=== PATIENT | female | born 1955 | race African-American/Black ===

== ENCOUNTER 2017-02-04 09:07 | Inpatient (IN) | payer BC ==
--- NOTE | 2017-02-04 09:46 | PDOC ---
History of Present Illness - General Chief Complaint: Shortness of Breath Stated Complaint: RESPIRATORY PROBLEM (PCP SENT) Time Seen by Provider: 02/04/17 09:32 - History of Present Illness Initial Comments: 02/04/17 09:55 The patient is a 61 year old female with a history of GERD, ulcer, hiatal hernia , CAD, HTN, COPD, Mitral Valve Prolapse who is sent in by her PCP for evaluation of worsening SOB and abdominal distension. The patient reports that over the past 1 month she has noted increasing abdominal distension. She reports that over the past 2 weeks she has noted worsening SOB and dyspnea on exertion prompting her to present to her PCP, Dr. Atwood who proceed to advise that she present to the ED for further evaluation. She denies any fevers , chills, chest pain, nausea, vomiting, abdominal pain, or changes with urination or bowel movements. She reports normal regular bowel movements, but notes she has been belching more frequently. She states she traveled to [place] , [facility], and the [facility] in June, but reports no symptoms up until 1 month ago. Past History - Past Medical History Allergies/Adverse Reactions: Allergies Allergy/AdvReac Type Severity Reaction Status Date / Time pistachio nut Allergy Verified 02/04/17 09:12 shrimp Allergy Verified 02/04/17 09:12 tree and shrub pollen Allergy Verified 02/04/17 09:12 tree pollen Allergy Uncoded 02/04/17 09:12 Home Medications: Ambulatory Orders Atorvastatin Ca [Lipitor] 20 mg PO HS 02/04/17 Cyanocobalamin (Vitamin B-12) [B-12] 500 mcg PO WEEKLY 02/04/17 Desloratadine/Pseudoephedrine [Clarinex-D 12 Hour Tablet] 1 each PO DAILY Diltiazem Cd [Cardizem Cd -] 120 mg PO DAILY 02/04/17 Folic Acid 1 mg PO DAILY 02/04/17 Mesalamine 1.2 gm PO ASDIR 02/04/17 Montelukast Na [Singulair -] 10 mg PO HS 02/04/17 Paroxetine HCl [Paxil] 20 mg PO DAILY 02/04/17 Spironolactone [Aldactone] 25 mg PO DAILY 02/04/17 Thyroid [[place] Thyroid] 60 mg PO DAILY 02/04/17 Valsartan/Hydrochlorothiazide [Valsartan-Hctz 160-12.5 mg Tab] 1 each PO DAILY 02/04/17 Cardiac Disorders: Yes (CAD) COPD: No GI Disorders: Yes (GERD, ulcer, hiatal hernia) HTN: Yes Hypercholesterolemia: Yes Thyroid Disease: Yes - Surgical History Appendectomy: Yes - Suicide/Smoking/Psychosocial Hx Smoking Status: Yes Smoking History: Current every day smoker Have you smoked in the past 12 months: Yes Number of Cigarettes Smoked Daily: 5 Information on smoking cessation initiated: Yes 'Breaking Loose' booklet given: 04/07/15 Hx Alcohol Use: No Drug/Substance Use Hx: No Substance Use Type: None Review of Systems - Review of Systems Comments:: 02/04/17 10:03 Constitutional: No fevers, chills, fatigue, malaise HEENT: No Rhinorrhea, nasal congestion, Cardiovascular: No chest pain, syncope, palpitations, lightheadedness Respiratory: SOB. No Cough, Hemoptysis, Gastrointestinal: Abdominal distension. No Abdominal pain, Nausea, Vomiting, Constipation, Diarrhea, Melena Genitourinary: No Dysuria, Frequency, Urgency, Hesitancy, Hematuria, Flank pain Musculoskeletal: No Myalgia, arthralgia Skin: No rashes, bruising, pallor Neurologic: No Headache, Dizziness, Numbness, Weakness, or Tingling Psychiatric: No Hallucinations. No SI or HI *Physical Exam - Vital Signs Last Vital Signs Temp Pulse Resp BP Pulse Ox 97.7 F 89 19 110/56 97 02/04/17 09:09 02/04/17 09:09 02/04/17 09:09 02/04/17 09:09 02/04/17 09:37 - Physical Exam Comments: 02/04/17 10:04 General Appearance: Nourished. No Apparent Distress HEENT: EOMI, LUX. No Pharyngeal Erythema, Tonsillar Exudate, Tonsillar Erythema Neck: No Cervical Lymphadenopathy Respiratory/Chest: Lungs Clear, Normal Breath Sounds. Rhonchi noted on exam. No Crackles, Rales, Cardiovascular: Regular Rhythm, Regular Rate. No Murmur, Gallops, Rubs Gastrointestinal/Abdominal: Normal Bowel Sounds, Distended with notable fluid wave. No Guarding, Rebound, Tenderness Musculoskeletal: No CVA Tenderness Extremity: Normal Capillary Refill Integumentary: Normal Color, Dry, Warm Neurologic: floor covering installer II-XII NML intact, Fully Oriented, Alert, Normal Mood/Affect, Normal Response, Motor Strength 5/5. ED Treatment Course - LABORATORY CBC & Chemistry Diagram: 02/04/17 09:53 02/04/17 09:53 Medical Decision Making - Medical Decision Making 02/04/17 10:06 The patient is a 61 year old female with a history of HTN, HLD who is sent in by her PCP for evaluation of worsening SOB and abdominal distension. Differential includes but is not limited to: Hepatic Failure, CHF, Pleural Effusion, Acities, infectious, metabolic derangement. Given the patient's significant acute onset abdominal distension without pain, we are concerned for a hepatic etiology for her distension. It is possible that given her significant distension, it could be contributing to her respiratory symptoms, through a pleural effusion. We will obtain a cbc, cmp, troponin, lipase, vbg, coags to evaluate for other etiologies. We will also obtain a chest plain film as well. We will continue to monitor and reassess. 02/04/17 12:00 CBC, cmp, troponin, lipase, coags are unremarkable. chest plain film is unremarkable. Bedside US does not demonstrate any signs of acities, pleural effusion, or paricardial effusion. Given her significant symptoms with a negative work up thus far, we will obtain a ct chest, abdomen, and pelvis to evaluate for other pathology. 02/04/17 13:00 CT abdomen pelvis demonstrates concern for a malignant nodule in the left upper lobe of the lung as read by our radiologist. We discussed the case with Dr. Atwood who stated that he would come in to see the patient and would like us to admit to Dr. Suggs/Sami's group. 02/04/17 13:[address] Suggs who agrees with admission and requests Dr. Lanza evaluate the patient. 02/04/17 14:40 Discussed the case with Dr. Lanza who has been made aware of the case. *DC/Admit/Observation/Transfer Diagnosis at time of Disposition: Shortness of breath - Discharge Dispostion Condition at time of disposition: Guarded Admit: Yes - Referrals Referrals: Andare Atwood MD [Primary Care Provider] - - Patient Instructions - Post Discharge Activity
[2017-02-04 09:58] LABS: BASOPHIL 1.1 % (0-2.0); EOSINOPHIL 1.9 % (0-4.5); MCHC 33.4 g/dl (32.0-36.0); MEAN PLT VOLUME 7.2 fl (7.5-11.1); PLATELET COUNT 283 K/MM3 (134-434); RDW 13.4 % (11.6-15.6); WHITE BLOOD COUNT 10.2 K/mm3 (4.0-10.0)
[2017-02-04 10:00] LABS: VENOUS PH 7.4 (7.32-7.42)
[2017-02-04 10:14] LABS: INR 1.04 (0.82-1.09); PROTHROMBIN TIME (PATIENT) 11.8 SEC (9.98-11.88)
[2017-02-04 10:17] LABS: ACTIVATED PTT 32.5 SECONDS (26.9-34.4)
[2017-02-04 10:25] LABS: ALBUMIN 4.3 g/dl (3.4-5.0); ANION GAP 9 (8-16); CALCIUM 9.5 mg/dL (8.5-10.1); CO2 27 mmol/L (21-32); CREATININE 0.7 mg/dL (0.55-1.02); GLUCOSE,RANDOM 112 mg/dL (74-106); SGOT/AST 28 U/L (15-37); SGPT/ALT 53 U/L (12-78)
[2017-02-04 10:27] LABS: ALK PHOS 60 U/L (45-117); BILIRUBIN,TOTAL 0.8 mg/dL (0.2-1.0)
[2017-02-04 10:38] LABS: CPK 1019 IU/L (26-192); TROPONIN I < 0.02 ng/ml (0.00-0.05)
[2017-02-04] MEDS ORDERED: ALBUTEROL SO4 2.5/IPRATROPIUM 0.5 INH SOL 3 ML VIAL.NEB. NEB ONE ×2 (10:57→11:00)
--- NOTE | 2017-02-04 11:05 | PDOC ---
Attending Attestation - [facility] HPI: 02/04/17 11:23 Patient is a 61 year old female with a significant past medical history of GERD , ulcer, hiatal hernia, CAD, HTN, COPD, Mitral Valve Prolapse who presents to the ED with complaints of Abdominal distention that began one month ago. Patient reports experiencing abdominal distention that began 1 month ago that she states has gotten worse over the last two weeks. Patient reports seeing PCP who referred her to the ED for further evaluation concerning her abdomen. Patient reports experiencing episodes of SOB and dizziness for one month that she states has gotten worse for the past 2 weeks. She reports SOB is intensified with walking and laying down flat. Patient reports experiencing difficulty in swallowing for the past 2 weeks, but is not sure if it is related her other symptoms. Patient reports recent out of country travel to [place], [place], and [facility]. Patient received recent cardiac workup with Head Rigger, results being negative. Denies chest pain. Denies constipation, diarrhea. Denies dysuria, hematuria, change in urine color. Denies contact with sick individuals. Denies nausea, vomiting. Denies any other symptoms. Allergies: Pistachio, Shrimp, Tree pollen, shrub pollen Social history: Current smoker (20 Cigarettes per day). Social drinker. No illicit drugs. Surgical history: Appendectomy, hysterectomy PMD: Dr. Atwood Cardiology: Dr. Cunha Diamond Sizer And Grader: Dr. Oneal - Physicial Exam PE: 02/04/17 11:23 GENERAL: Awake, alert, and fully oriented, in no acute distress HEAD: No signs of trauma EYES: PERRLA, EOMI, sclera anicteric, conjunctiva clear ENT: +Pharynx clear. No ulvila edema. Auricles normal inspection, nares patent, Moist mucosa. +Diffuse Wheezing, worse on right. +Mild increase work of breathing. NECK: Normal ROM, supple, no lymphadenopathy, JVD, or masses LUNGS: +Audible breathing. +Mild stridor. Breath sounds equal, clear to auscultation bilaterally. No wheezes, and no crackles HEART: Regular rate and rhythm, normal S1 and S2, no murmurs, rubs or gallops ABDOMEN: Soft, nontender, normoactive bowel sounds. No guarding, no rebound. No masses EXTREMITIES: Normal range of motion, no edema. No clubbing or cyanosis. No cords, erythema, or tenderness NEUROLOGICAL: Normal speech SKIN: Warm, Dry, normal turgor, no rashes or lesions noted. - Medical Decision Making 02/04/17 11:23 Documentation prepared by Marcial Chowdhury, acting as medical case worker for Janelle Helm MD, /DO. <Marcial Chowdhury - Last Filed: 02/04/17 11:23> - Resident Resident Name: Macario Valerio - ED Attending Attestation I have performed the following: I have examined & evaluated the patient, The case was reviewed & discussed with the resident, I agree w/resident's findings & plan, Exceptions are as noted - Medical Decision Making 02/04/17 11:02 7-year-old female history of hypertension, CAD, long smoking history here with shortness of breath wheezing and progressive abdominal distention. Exam noted for diffuse wheezing Differential: CHF, ACS, ascites, other processes such as lung CA, pericardial effusion, pleural effusion, anemia. Renal failure. Plan: EKG, chest x-ray, DuoNeb times for wheezing, CBC, CMP, BNP, troponin bedside ultrasound of cardiac , lung, and abdomen to rule out ascites. Will discuss with patient's primary doctor roberto <Janelle Helm - Last Filed: 02/04/17 12:38> Heart Score/ECG Review #1 General ECG Interpretation: Sinus Rhythm, Normal Rate (87), Normal Intervals, No acute ischemic changes (TWI II, III, AVF) <Janelle Helm - Last Filed: 02/04/17 12:38>
[2017-02-04] MEDS ORDERED: methylPREDNISolone NA SUCC 125 MG/2 ML VIAL IVPUSH ONE (13:19)
[2017-02-04] MEDS ORDERED: methylPREDNISolone NA SUCC 125 MG/2 ML VIAL ONE (13:27)
--- NOTE | 2017-02-04 15:43 | PN ---
Progress Note (short form) - Note Progress Note: PULMONARY CONSULTATION DICTATED 02/04/17 IMP COPD EXACERBATION CONRAD MASS LIKELY MALIGNANT ABDOMINAL DISTENTION ASHD OSAS ON CPAP HTN GERD PLAN IV STEROIDS INHALED BRONCHODILATORS O2 CT GUIDED BX WHEN RESPIRATORY STATUS IMPROVED PETS SCAN OUTPATIENT GI W/U IVF CPAP 7cmH2O AT BEDTIME MONITOR ROM LOVELL DR Problem List - Problems (1) Shortness of breath Code(s): R06.02 - SHORTNESS OF BREATH (2) COPD (chronic obstructive pulmonary disease) Code(s): J44.9 - CHRONIC OBSTRUCTIVE PULMONARY DISEASE, UNSPECIFIED Qualifiers: Emphysema type: unspecified (3) COPD exacerbation Code(s): J44.1 - CHRONIC OBSTRUCTIVE PULMONARY DISEASE W (ACUTE) EXACERBATION (4) Mass of left lung Code(s): R91.8 - OTHER NONSPECIFIC ABNORMAL FINDING OF LUNG FIELD (5) Abdominal distension Code(s): R14.0 - ABDOMINAL DISTENSION (GASEOUS) (6) GERD (gastroesophageal reflux disease) Code(s): K21.9 - GASTRO-ESOPHAGEAL REFLUX DISEASE WITHOUT ESOPHAGITIS (7) Hypothyroid Code(s): E03.9 - HYPOTHYROIDISM, UNSPECIFIED (8) ASHD (arteriosclerotic heart disease) Code(s): I25.10 - ATHSCL HEART DISEASE OF [place] CORONARY ARTERY W/O ANG PCTRS
[2017-02-04] MEDS ORDERED: ACETAMINOPHEN 325 MG TABLET (FP) PO PRN (15:54)
[2017-02-04 16:54] LABS: URINE APPEARANCE CLEAR; URINE BILIRUBIN NEGATIVE (NEGATIVE); URINE BLOOD NEGATIVE (NEGATIVE); URINE COLOR LTYELLOW; URINE GLUCOSE (UA) NEGATIVE (NEGATIVE); URINE KETONE NEGATIVE (NEGATIVE); URINE NITRITE NEGATIVE (NEGATIVE); URINE PROTEIN NEGATIVE (NEGATIVE); URINE UROBILINOGEN NEGATIVE mg/dL (0.2-1.0)
[2017-02-04 17:36] VITALS: BMI 29.3
[2017-02-04] MEDS: MONTELUKAST NA 10 MG TABLET PO SCH ×2 (17:48→21:46)
[2017-02-04] MEDS: ATORVASTATIN CA 20 MG TABLET (FP) PO SCH ×2 (17:48→21:46)
[2017-02-04] MEDS: SPIRONOLACTONE 25 MG TABLET (FP) PO SCH ×2 (17:48→21:46)
[2017-02-04] MEDS: methylPREDNISolone NA SUCC 40 MG/1 ML VIAL IVPUSH SCH (17:48)
[2017-02-04] MEDS: TIOTROPIUM BROMIDE 18 MCG/INH (DEVICE W/ 5 CAPSULES) IH SCH (17:48)
[2017-02-04] MEDS ORDERED: PT OWN MED DRAWER 7, Y5N ONE (18:51)
--- NOTE | 2017-02-04 18:52 | CONS ---
DATE OF CONSULTATION: 02/04/2017 REFERRING PHYSICIAN: Dr. Atwood HISTORY: The patient is a 61-year-old black female with a past medical history of GERD, obstructive sleep apnea on CPAP to 7cmH20, peptic ulcer disease, hiatal hernia, ASHD, hypertension, COPD, mitral valve prolapse, longstanding history of tobacco use approximately 1-2 packs per day since teenage years still smoking approximately a pack per day admitted to [facility] with the complaint of increasing shortness of breath and abdominal distention. The patient states that the past month or so she has been developing increasing abdominal distention. She denies any nausea or vomiting. She denies any change in bowels. She apparently went for a GI evaluation, which did not reveal any abnormalities. For the past couple of weeks or so she started noticing increasing shortness of breath, cough, and chest congestion. Her cough is productive of clear sputum. She denies any fevers, chills, nausea, vomiting, or diaphoresis. She states that her shortness of breath is exacerbated with walking up inclines and when lying flat. She is also complaining of difficulty in swallowing for the past 2 weeks and change in voice. The patient denies any hemoptysis. The patient also is noted to have increasing wheezing. She is not on home O2. She has never been intubated. She has apparently recently travelled out of the country to [place], [place], and the [facility]. She recently underwent a cardiac workup, which was within normal limits. PAST MEDICAL HISTORY: Again, includes COPD, hypertension, ASHD, mitral valve prolapse, obstructive sleep apnea, GERD, peptic ulcer disease, and hiatal hernia. REVIEW OF SYSTEMS: Positive orthopnea. Positive dyspnea. Positive cough. Positive hoarseness. No chest pain, no palpitations, no fever, no chills, no hemoptysis , no weight loss, no night sweats. Positive abdominal bloating. Positive abdominal distention. No abdominal pain. No lower extremity edema. CURRENT MEDICATIONS: Prior to admission include Lipitor, vitamin B12, Clarinex- D, Cardizem, folic acid, Aldactone, Paxil, Singulair, Synthroid, and valsartan/hydrochlorothiazide. SOCIAL HISTORY: No occupational exposures. Longstanding history of tobacco use approximately 1-2 packs per day since age 17 and currently still smoking. PHYSICAL EXAMINATION: General: The patient is a well-developed, well-nourished female awake and alert. She is mildly dyspneic but in no acute distress. Vital Signs: She is currently afebrile. Blood pressure 106/62, respiratory rate 24, O2 saturation 95% on room air. HEENT: Normocephalic and atraumatic. Neck: Supple. Heart: Regular S1, S2. Chest: Bilateral expiratory and inspiratory wheezes and rhonchi. Abdomen: Mildly distended. Soft. Bowel sounds present. Extremities: No cyanosis or edema. LABORATORIES: WBC 10.2, hemoglobin 16.3, hematocrit 48.9 with a platelet count of 283,000. There are 64 polys, 27 lymphocytes, and 5 monocytes. INR 1.04. Venous blood gas: PH 7.4, PCO2 of 43, PO2 of 39, bicarbonate 26, BUN 12, creatinine 0.7, CK 1019, CK-MB 11.1, B12 is 1269. Chest CTA reveals evidence of a left COPD changes bilaterally. There is a 1.8-cm x 1.4-cm spiculated nodule in the left upper lobe. There is a 4-mm nodule at the apex. There is noted increased adenopathy in the aortopulmonary window of 3.5 cm x 2.1 cm with central areas of hypoattenuation , likely necrosis. There is a prominent posterior lymph node measured at 1.4. Abdominal CT revealed no evidence of intestinal obstruction or diverticulitis. There is mild distention of bladder. There is also a large left hilar nodes. IMPRESSION: 1. Dyspnea secondary to chronic obstructive pulmonary disease exacerbation. 2. Left upper lobe mass likely malignancy increased risk due to longstanding history of tobacco use and noted to have mediastinal adenopathy. 3. Abdominal distention. 4. Elevated CPK. 5. History of hypothyroidism. PLAN: IV steroids, inhaled bronchodilators, supplemental O2. Pfts as an outpatient. PET scan as an outpatient. CT-guided aspiration biopsy. Continue GI workup. Evaluate for abdominal distention, monitor cpk ZOE DENISE M.D. LAURYN/[id number] MTDD
[2017-02-04 20:18] LABS: CPK 757 IU/L (26-192); THYROID STIMULATING HORMONE 0.81 uIU/ml (0.358-3.74); TROPONIN I < 0.02 ng/ml (0.00-0.05)
[2017-02-04] MEDS ORDERED: ALBUTEROL SO4 0.083% IH SOL 2.5 MG/3 ML VIAL.NEB. NEB ONE (21:49)
[2017-02-04] MEDS: BUDESONIDE/FORMETEROL FUMARATE 160/4.5 mcg INHALER IH SCH (22:39)
[2017-02-04] MEDS: LEVOFLOXACIN 500 MG IVPB 500 MG/100 ML BAG IVPB SCH (22:39)
[2017-02-04] MEDS: ALBUTEROL SO4 0.5 % INH SOLN 2.5 MG/0.5 ML VIAL.NEB. NEB PRN (22:40)
[2017-02-04 22:41] LABS: URINE LEUK ESTERASE Negative (NEGATIVE)
--- NOTE | 2017-02-04 22:45 | CONSULT ---
Consult Consult Specialty:: endocrine Referred by:: dr.rabadi west Reason for Consultation:: hypothyroidism - History of Present Illness Chief Complaint: difficulty breathing History of Present Illness: 61y female,copd,hypothyroidism,htn,hyperlipidemia,has recently noted increased abdominal girth,dyspnea and stridor,was seen by gi and sonogram performed of abdomen reportedly negative for ascites,her symptoms have recently worsened and warranted admission for possible pulmonary pathology,now ct showing clinical evidence of possible mass , she has also had difficulty voiding and belching frequently - History Source History Provided By: Patient - Alcohol/Substance Use Hx Alcohol Use: No - Smoking History Smoking history: Current every day smoker Have you smoked in the past 12 months: Yes Aproximately how many cigarettes per day: 5 Home Medications - Allergies Allergies/Adverse Reactions: Allergies Allergy/AdvReac Type Severity Reaction Status Date / Time pistachio nut Allergy Verified 02/04/17 09:12 shrimp Allergy Verified 02/04/17 09:12 tree and shrub pollen Allergy Verified 02/04/17 09:12 tree pollen Allergy Uncoded 02/04/17 09:12 - Home Medications Home Medications: Ambulatory Orders Atorvastatin Ca [Lipitor] 20 mg PO HS 02/04/17 Cyanocobalamin (Vitamin B-12) [B-12] 500 mcg PO WEEKLY 02/04/17 Desloratadine/Pseudoephedrine [Clarinex-D 12 Hour Tablet] 1 each PO DAILY Diltiazem Cd [Cardizem Cd -] 120 mg PO DAILY 02/04/17 Folic Acid 1 mg PO DAILY 02/04/17 Mesalamine 1.2 gm PO ASDIR 02/04/17 Montelukast Na [Singulair -] 10 mg PO HS 02/04/17 Paroxetine HCl [Paxil] 20 mg PO DAILY 02/04/17 Spironolactone [Aldactone] 25 mg PO DAILY 02/04/17 Thyroid [[place] Thyroid] 60 mg PO DAILY 02/04/17 Valsartan/Hydrochlorothiazide [Valsartan-Hctz 160-12.5 mg Tab] 1 each PO DAILY 02/04/17 Review of Systems - Review of Systems Constitutional: reports: Lethargy, Weakness Eyes: reports: No Symptoms HENT: reports: No Symptoms Neck: reports: No Symptoms Cardiovascular: reports: No Symptoms Respiratory: reports: Exercise Intolerance Gastrointestinal: reports: No Symptoms Genitourinary: reports: Dysuria, Urgency Breasts: reports: No Symptoms Reported Musculoskeletal: reports: No Symptoms Integumentary: reports: No Symptoms Neurological: reports: Weakness Endocrine: reports: Unexplained Weight Gain Physical Exam Vital Signs: Vital Signs Temperature 97.4 F L 02/04/17 20:12 Pulse Rate 95 H 02/04/17 20:12 Respiratory Rate 24 02/04/17 20:12 Blood Pressure 108/89 02/04/17 20:12 O2 Sat by Pulse Oximetry (%) 94 L 02/04/17 17:08 Constitutional: Yes: Anxious Eyes: Yes: EOM Intact HENT: Yes: Normocephalic Neck: Yes: Trachea Midline Cardiovascular: Yes: Tachycardia Respiratory: Yes: Accessory Muscle Use, On Nasal O2, Rhonchi, SOB on Exertion, Tachypnea Gastrointestinal: Yes: Normal Bowel Sounds, Hypoactive Bowel Sounds ...Rectal Exam: Yes: Deferred Renal/: Yes: Yu Present Musculoskeletal: Yes: WNL Extremities: Yes: WNL Edema: No Integumentary: Yes: WNL Neurological: Yes: Alert, Oriented Labs: CBC, BMP 02/04/17 09:53 02/04/17 09:53 Problem List - Problems (1) Hypothyroidism Code(s): E03.9 - HYPOTHYROIDISM, UNSPECIFIED (2) ASHD (arteriosclerotic heart disease) Code(s): I25.10 - ATHSCL HEART DISEASE OF [place] CORONARY ARTERY W/O ANG PCTRS (3) Abdominal distension Code(s): R14.0 - ABDOMINAL DISTENSION (GASEOUS) (4) COPD (chronic obstructive pulmonary disease) Code(s): J44.9 - CHRONIC OBSTRUCTIVE PULMONARY DISEASE, UNSPECIFIED (5) GERD (gastroesophageal reflux disease) Code(s): K21.9 - GASTRO-ESOPHAGEAL REFLUX DISEASE WITHOUT ESOPHAGITIS (6) Hypothyroid Code(s): E03.9 - HYPOTHYROIDISM, UNSPECIFIED (7) Mass of left lung Code(s): R91.8 - OTHER NONSPECIFIC ABNORMAL FINDING OF LUNG FIELD Assessment/Plan Current Active Problems ASHD (arteriosclerotic heart disease) (Acute) Abdominal distension (Acute) COPD (chronic obstructive pulmonary disease) (Acute) COPD exacerbation (Acute) GERD (gastroesophageal reflux disease) (Acute) Hypothyroid (Acute) Mass of left lung (Acute) Shortness of breath (Acute) Abnormal Lab Results 02/04/17 02/04/17 02/04/17 09:53 09:53 09:53 WBC 10.2 H RBC 5.43 H Hgb 16.3 H D Hct 48.9 H MPV 7.2 L Mixed VBG HCO3 26.0 H Random Glucose Creatine Kinase 1019 H CK-MB (CK-2) 11.130 H 02/04/17 02/04/17 09:53 18:30 WBC RBC Hgb Hct MPV Mixed VBG HCO3 Random Glucose 112 H Creatine Kinase 757 H CK-MB (CK-2) Laboratory Results - last 24 hr 02/04/17 02/04/17 02/04/17 09:53 09:53 09:53 WBC 10.2 H RBC 5.43 H Hgb 16.3 H D Hct 48.9 H MCV 90.0 MCH 30.0 MCHC 33.4 RDW 13.4 Plt Count 283 MPV 7.2 L Neutrophils % 64.0 Lymphocytes % 27.1 Monocytes % 5.9 Eosinophils % 1.9 Basophils % 1.1 PT with INR INR PTT (Actin FS) VBG pH 7.40 POC VBG pCO2 43.3 POC VBG pO2 39.5 Mixed VBG HCO3 26.0 H Sodium Potassium Chloride Carbon Dioxide Anion Gap BUN Creatinine Creat Clearance w eGFR Random Glucose Calcium Total Bilirubin AST ALT Alkaline Phosphatase Creatine Kinase 1019 H Creatine Kinase Index 1.0 CK-MB (CK-2) 11.130 H Troponin I < 0.02 B-Natriuretic Peptide 7.98 Total Protein Albumin Lipase TSH Free T4 Urine Color Urine Appearance Urine pH Ur Specific [place] Urine Protein Urine Glucose (UA) Urine Ketones Urine Blood Urine Nitrite Urine Bilirubin Urine Urobilinogen Ur Leukocyte Esterase 02/04/17 02/04/17 02/04/17 09:53 09:53 16:30 WBC RBC Hgb Hct MCV MCH MCHC RDW Plt Count MPV Neutrophils % Lymphocytes % Monocytes % Eosinophils % Basophils % PT with INR 11.80 INR 1.04 PTT (Actin FS) 32.5 VBG pH POC VBG pCO2 POC VBG pO2 Mixed VBG HCO3 Sodium 138 Potassium 4.3 Chloride 102 Carbon Dioxide 27 Anion Gap 9 BUN 12 Creatinine 0.7 Creat Clearance w eGFR > 60 Random Glucose 112 H Calcium 9.5 Total Bilirubin 0.8 D AST 28 D ALT 53 D Alkaline Phosphatase 60 Creatine Kinase Creatine Kinase Index CK-MB (CK-2) Troponin I B-Natriuretic Peptide Total Protein 8.0 Albumin 4.3 Lipase 138 TSH Free T4 Urine Color Ltyellow Urine Appearance Clear Urine pH 5.0 Ur Specific [place] 1.024 Urine Protein Negative Urine Glucose (UA) Negative Urine Ketones Negative Urine Blood Negative Urine Nitrite Negative Urine Bilirubin Negative Urine Urobilinogen Negative Ur Leukocyte Esterase Negative 02/04/17 02/04/17 18:30 18:30 WBC RBC Hgb Hct MCV MCH MCHC RDW Plt Count MPV Neutrophils % Lymphocytes % Monocytes % Eosinophils % Basophils % PT with INR INR PTT (Actin FS) VBG pH POC VBG pCO2 POC VBG pO2 Mixed VBG HCO3 Sodium Potassium Chloride Carbon Dioxide Anion Gap BUN Creatinine Creat Clearance w eGFR Random Glucose Calcium Total Bilirubin AST ALT Alkaline Phosphatase Creatine Kinase 757 H Creatine Kinase Index CK-MB (CK-2) Troponin I < 0.02 B-Natriuretic Peptide Total Protein Albumin Lipase TSH 0.81 D Free T4 0.95 D Urine Color Urine Appearance Urine pH Ur Specific [place] Urine Protein Urine Glucose (UA) Urine Ketones Urine Blood Urine Nitrite Urine Bilirubin Urine Urobilinogen Ur Leukocyte Esterase plan oxygen 2 liter nc pulmonary consulty iv steroids armour thyroid 60mg daily ck tsh free t4 antibiotic
[2017-02-04] MEDS: morphine SULFATE 4 MG/ML VIAL IVPUSH PRN (23:10)
[2017-02-05 01:03] LABS: URINE APPEARANCE CLEAR; URINE BILIRUBIN NEGATIVE (NEGATIVE); URINE BLOOD NEGATIVE (NEGATIVE); URINE COLOR LTYELLOW; URINE GLUCOSE (UA) NEGATIVE (NEGATIVE); URINE KETONE NEGATIVE (NEGATIVE); URINE NITRITE NEGATIVE (NEGATIVE); URINE PROTEIN NEGATIVE (NEGATIVE); URINE UROBILINOGEN NEGATIVE mg/dL (0.2-1.0)
[2017-02-05] MEDS: morphine SULFATE 4 MG/ML VIAL IVPUSH PRN ×2 (03:54→09:07)
[2017-02-05] MEDS ORDERED: ALBUTEROL SO4 0.083% IH SOL 2.5 MG/3 ML VIAL.NEB. NEB ONE (04:01)
[2017-02-05] MEDS: ALBUTEROL SO4 0.5 % INH SOLN 2.5 MG/0.5 ML VIAL.NEB. NEB PRN ×2 (04:04→22:29)
[2017-02-05 06:26] LABS: MCH 30.4 pg (25.7-33.7); MCHC 33.3 g/dl (32.0-36.0); MEAN CELL VOLUME 91.3 fl (80-96); MEAN PLT VOLUME 7.9 fl (7.5-11.1); PLATELET COUNT 267 K/MM3 (134-434); RDW 13.2 % (11.6-15.6); WHITE BLOOD COUNT 13.8 K/mm3 (4.0-10.0)
[2017-02-05 07:08] LABS: CHOLESTEROL 169 mg/dL (50-200)
[2017-02-05 07:13] LABS: ALBUMIN 3.9 g/dl (3.4-5.0); ANION GAP 14 (8-16); CALCIUM 9.5 mg/dL (8.5-10.1); CO2 20 mmol/L (21-32); GLUCOSE,RANDOM 167 mg/dL (74-106)
[2017-02-05] MEDS: THYROID 60 MG TABLET PO SCH (07:16)
[2017-02-05 07:18] LABS: ALK PHOS 50 U/L (45-117); BILIRUBIN,TOTAL 0.6 mg/dL (0.2-1.0); CREATININE 0.8 mg/dL (0.55-1.02); SGOT/AST 23 U/L (15-37); SGPT/ALT 46 U/L (12-78); TOT PROT 7.3 g/dl (6.4-8.2)
[2017-02-05] MEDS ORDERED: VALSARTAN 160 MG TABLET (UD) PO SCH (10:00)
[2017-02-05] MEDS ORDERED: PT OWN MED DRAWER 7, Y5N ONE (10:13)
[2017-02-05] MEDS: SPIRONOLACTONE 25 MG TABLET (FP) PO SCH ×2 (10:54→21:38)
[2017-02-05] MEDS: FOLIC ACID 1 MG TABLET (FP) PO SCH (10:54)
[2017-02-05] MEDS: methylPREDNISolone NA SUCC 40 MG/1 ML VIAL IVPUSH SCH (10:54)
[2017-02-05] MEDS: LEVOFLOXACIN 500 MG IVPB 500 MG/100 ML BAG IVPB SCH (10:54)
[2017-02-05] MEDS: HYDROCHLOROTHIAZIDE 12.5 MG CAPSULE (FP) PO SCH (10:54)
[2017-02-05] MEDS: BUDESONIDE/FORMETEROL FUMARATE 160/4.5 mcg INHALER IH SCH ×2 (10:56→21:38)
--- NOTE | 2017-02-05 11:30 | PN ---
Progress Note (short form) - Note Progress Note: PULMONARY AWAKE/ALERT/HOARSENESS OF VOICE ANICTERIC SCATTERED B/L RHONCHI/CRACKLES S1S2 BS+ NO EDEMA/SILVA LABS/MEDS/NOTES/IMAGES NOTED IMP COPD EXACERBATION CONRAD MASS LIKELY MALIGNANT ABDOMINAL DISTENTION ASHD OSAS ON CPAP HTN GERD PLAN IV STEROIDS INHALED BRONCHODILATORS O2 CT GUIDED BX WHEN RESPIRATORY STATUS IMPROVED PET SCAN OUTPATIENT NEEDS UROLOGIC EVALUATION IVF NEEDED CPAP 7cmH2O as tolerated MONITOR LILIYA KAY MD
[2017-02-05] MEDS: TIOTROPIUM BROMIDE 18 MCG/INH (DEVICE W/ 5 CAPSULES) IH SCH (11:47)
[2017-02-05] MEDS: PARoxetine HCL 10 MG TABLET (FP) PO SCH (11:47)
--- NOTE | 2017-02-05 12:27 | HP ---
Admitting History and Physical - Primary Care Physician PCP: Lewis Gallardo - Admission Chief Complaint: LUNG MASS History of Present Illness: 61 Y/O FEMALE WITH LONG HISTORY OF TOBACCO SMOKING FOUND WITH LUNG NODULE. PATIENT IN BED WITH FAMILY AROUND HER. ON FOR RESP DISTRESS. History Source: Patient, Medical Record - Past Medical History Cardiovascular: Yes: HTN Endocrine: Yes: Hypothyroidism - Smoking History Smoking history: Current every day smoker Have you smoked in the past 12 months: Yes Aproximately how many cigarettes per day: 5 - Alcohol/Substance Use Hx Alcohol Use: No Home Medications - Allergies Allergies/Adverse Reactions: Allergies Allergy/AdvReac Type Severity Reaction Status Date / Time pistachio nut Allergy Verified 02/04/17 09:12 shrimp Allergy Verified 02/04/17 09:12 tree and shrub pollen Allergy Verified 02/04/17 09:12 tree pollen Allergy Uncoded 02/04/17 09:12 - Home Medications Home Medications: Ambulatory Orders Atorvastatin Ca [Lipitor] 20 mg PO HS 02/04/17 Cyanocobalamin (Vitamin B-12) [B-12] 500 mcg PO WEEKLY 02/04/17 Desloratadine/Pseudoephedrine [Clarinex-D 12 Hour Tablet] 1 each PO DAILY Diltiazem Cd [Cardizem Cd -] 120 mg PO DAILY 02/04/17 Folic Acid 1 mg PO DAILY 02/04/17 Mesalamine 1.2 gm PO ASDIR 02/04/17 Montelukast Na [Singulair -] 10 mg PO HS 02/04/17 Paroxetine HCl [Paxil] 20 mg PO DAILY 02/04/17 Spironolactone [Aldactone] 25 mg PO DAILY 02/04/17 Thyroid [[place] Thyroid] 60 mg PO DAILY 02/04/17 Valsartan/Hydrochlorothiazide [Valsartan-Hctz 160-12.5 mg Tab] 1 each PO DAILY 02/04/17 Review of Systems - Review of Systems Constitutional: reports: No Symptoms Eyes: reports: No Symptoms HENT: reports: No Symptoms Neck: reports: No Symptoms Cardiovascular: reports: No Symptoms Respiratory: reports: Cough, SOB Gastrointestinal: reports: No Symptoms Genitourinary: reports: Incontinence Musculoskeletal: reports: No Symptoms Integumentary: reports: No Symptoms Neurological: reports: No Symptoms Endocrine: reports: No Symptoms Hematology/Lymphatic: reports: No Symptoms Psychiatric: reports: No Symptoms Physical Examination Vital Signs: Vital Signs Temperature 98 F 02/05/17 10:00 Pulse Rate 98 H 02/05/17 10:00 Respiratory Rate 20 02/05/17 10:00 Blood Pressure 108/68 02/05/17 10:00 O2 Sat by Pulse Oximetry (%) 96 02/05/17 09:00 Constitutional: Yes: Mild Distress Eyes: Yes: WNL HENT: Yes: WNL Neck: Yes: WNL Cardiovascular: Yes: WNL Respiratory: Yes: Cough, On Nasal O2, SOB Gastrointestinal: Yes: WNL Renal/: Yes: WNL Musculoskeletal: Yes: WNL Extremities: Yes: WNL Edema: No Peripheral Pulses WNL: Yes Integumentary: Yes: WNL Wound/Incision: Yes: Clean/Dry Neurological: Yes: WNL ...Motor Strength: WNL Psychiatric: Yes: WNL Labs: CBC, BMP 02/05/17 05:00 02/05/17 05:00 Imaging - Results Cat Scan: Report Reviewed Problem List - Problems (1) COPD (chronic obstructive pulmonary disease) Code(s): J44.9 - CHRONIC OBSTRUCTIVE PULMONARY DISEASE, UNSPECIFIED Qualifiers: Emphysema type: unspecified (2) COPD exacerbation Code(s): J44.1 - CHRONIC OBSTRUCTIVE PULMONARY DISEASE W (ACUTE) EXACERBATION (3) Hypothyroid Code(s): E03.9 - HYPOTHYROIDISM, UNSPECIFIED (4) Hypothyroidism Code(s): E03.9 - HYPOTHYROIDISM, UNSPECIFIED (5) Mass of left lung Code(s): R91.8 - OTHER NONSPECIFIC ABNORMAL FINDING OF LUNG FIELD (6) Shortness of breath Code(s): R06.02 - SHORTNESS OF BREATH Assessment/Plan PULMONARY WORKUP LUNG BIOPSY 02 SUPPORT NEBS FOLLOW UP FOR URINARY INCONTINENCE
--- NOTE | 2017-02-05 13:20 | CON.GU ---
Consult - History of Present Illness History of Present Illness: 61 yo female admitted with abdominal distention. Noted to have distended bladder on CT and new finding of lung mass. Pt has history significant for stress incontinence s/p sling placement approximately 15 yrs ago - Past Medical History Cardio/Vascular: Yes: HTN Endocrine: Yes: Hypothyroidism - Alcohol/Substance Use Hx Alcohol Use: No - Smoking History Smoking history: Current every day smoker Have you smoked in the past 12 months: Yes Aproximately how many cigarettes per day: 5 Home Medications - Allergies Allergies/Adverse Reactions: Allergies Allergy/AdvReac Type Severity Reaction Status Date / Time pistachio nut Allergy Verified 02/04/17 09:12 shrimp Allergy Verified 02/04/17 09:12 tree and shrub pollen Allergy Verified 02/04/17 09:12 tree pollen Allergy Uncoded 02/04/17 09:12 - Home Medications Home Medications: Ambulatory Orders Atorvastatin Ca [Lipitor] 20 mg PO HS 02/04/17 Cyanocobalamin (Vitamin B-12) [B-12] 500 mcg PO WEEKLY 02/04/17 Desloratadine/Pseudoephedrine [Clarinex-D 12 Hour Tablet] 1 each PO DAILY Diltiazem Cd [Cardizem Cd -] 120 mg PO DAILY 02/04/17 Folic Acid 1 mg PO DAILY 02/04/17 Mesalamine 1.2 gm PO ASDIR 02/04/17 Montelukast Na [Singulair -] 10 mg PO HS 02/04/17 Paroxetine HCl [Paxil] 20 mg PO DAILY 02/04/17 Spironolactone [Aldactone] 25 mg PO DAILY 02/04/17 Thyroid [[place] Thyroid] 60 mg PO DAILY 02/04/17 Valsartan/Hydrochlorothiazide [Valsartan-Hctz 160-12.5 mg Tab] 1 each PO DAILY 02/04/17 Review of Systems - Review of Systems Genitourinary: reports: Incontinence Physical Exam- Vital Signs: Vital Signs Temperature 98 F 02/05/17 10:00 Pulse Rate 98 H 02/05/17 10:00 Respiratory Rate 20 02/05/17 10:00 Blood Pressure 108/68 02/05/17 10:00 O2 Sat by Pulse Oximetry (%) 96 02/05/17 09:00 Gastrointestinal: Yes: Distention Renal/: Yes: Yu Present Labs: CBC, BMP 02/05/17 05:00 02/05/17 05:00 Imaging - Results Cat Scan: Report Reviewed Problem List - Problems (1) Urinary retention Assessment/Plan: will start flomax and urecholine. may give voiding trial in 48hrs Code(s): R33.9 - RETENTION OF URINE, UNSPECIFIED
[2017-02-05] MEDS: TAMSULOSIN HCL 0.4 MG CAP.ER.24H (FP) PO SCH (14:11)
[2017-02-05] MEDS: BETHANECHOL CHLORIDE 25 MG TABLET PO SCH ×3 (14:11→21:38)
[2017-02-05 17:21] LABS: URINE LEUK ESTERASE Negative (NEGATIVE)
[2017-02-05] MEDS ORDERED: VALSARTAN 40 MG TABLET (FP) PO SCH (18:56)
[2017-02-05] MEDS: ATORVASTATIN CA 10 MG TABLET (FP) PO SCH (21:38)
[2017-02-05] MEDS: MONTELUKAST NA 10 MG TABLET PO SCH (21:38)
[2017-02-06] MEDS: THYROID 60 MG TABLET PO SCH (06:38)
[2017-02-06] MEDS: BETHANECHOL CHLORIDE 25 MG TABLET PO SCH ×4 (06:38→22:21)
[2017-02-06] MEDS: TAMSULOSIN HCL 0.4 MG CAP.ER.24H (FP) PO SCH (08:06)
[2017-02-06] MEDS ORDERED: PT OWN MED DRAWER 7, Y5N ONE ×2 (08:35→10:10)
[2017-02-06] MEDS: methylPREDNISolone NA SUCC 40 MG/1 ML VIAL IVPUSH SCH (10:16)
[2017-02-06] MEDS: LEVOFLOXACIN 500 MG IVPB 500 MG/100 ML BAG IVPB SCH (10:16)
[2017-02-06] MEDS: FOLIC ACID 1 MG TABLET (FP) PO SCH (10:17)
[2017-02-06] MEDS: SPIRONOLACTONE 25 MG TABLET (FP) PO SCH ×2 (10:17→22:21)
[2017-02-06] MEDS: PARoxetine HCL 10 MG TABLET (FP) PO SCH (10:17)
[2017-02-06] MEDS: HYDROCHLOROTHIAZIDE 12.5 MG CAPSULE (FP) PO SCH (10:17)
[2017-02-06] MEDS: TIOTROPIUM BROMIDE 18 MCG/INH (DEVICE W/ 5 CAPSULES) IH SCH (10:18)
[2017-02-06] MEDS: BUDESONIDE/FORMETEROL FUMARATE 160/4.5 mcg INHALER IH SCH ×2 (10:18→22:22)
--- NOTE | 2017-02-06 12:11 | PN ---
Progress Note, Physician Chief Complaint: [place] FAMILY BEDSIDE STILL SOB BUT FEELING BETTER - Current Medication List Current Medications: Active Medications Acetaminophen (Tylenol -) 650 mg PO Q6H PRN PRN Reason: FEVER OR PAIN Albuterol Sulfate (Ventolin 0.5% -) 1 amp NEB Q4H PRN PRN Reason: SHORT OF BREATH/WHEEZING Last Admin: 02/05/17 22:29 Dose: 1 amp Atorvastatin Calcium (Lipitor -) 10 mg PO HS [facility] Last Admin: 02/05/17 21:38 Dose: 10 mg Bethanechol Chloride (Urecholine -) 25 mg PO TID [facility] Last Admin: 02/06/17 06:38 Dose: Not Given Budesonide/Formoterol Fumarate (Symbicort 160/4.5mcg -) 2 puff IH BID [facility] Last Admin: 02/06/17 10:18 Dose: 2 puff Diltiazem HCl (Cardizem Cd -) 120 mg PO DAILY [facility] Last Admin: 02/06/17 10:17 Dose: 120 mg Folic Acid (Folic Acid -) 1 mg PO DAILY [facility] Last Admin: 02/06/17 10:17 Dose: 1 mg Levofloxacin (Levaquin 500 Mg Premixed Ivpb -) 500 mg in 100 mls @ 100 mls/hr IVPB DAILY [facility] Last Admin: 02/06/17 10:16 Dose: 100 mls/hr Methylprednisolone Sodium Succinate (Solu-Medrol -) 40 mg IVPUSH DAILY [facility] Last Admin: 02/06/17 10:16 Dose: 40 mg Montelukast Sodium (Singulair -) 10 mg PO HS [facility] Last Admin: 02/05/17 21:38 Dose: 10 mg Morphine Sulfate (Morphine Sulfate) 1 mg IVPUSH Q4H PRN PRN Reason: PAIN Last Admin: 02/05/17 09:07 Dose: 1 mg Paroxetine HCl (Paxil -) 10 mg PO DAILY [facility] Last Admin: 02/06/17 10:17 Dose: 10 mg Spironolactone (Aldactone -) 25 mg PO BID [facility] Last Admin: 02/06/17 10:17 Dose: 25 mg Tamsulosin HCl (Flomax -) 0.4 mg PO DAILY@0830 [facility] Last Admin: 02/06/17 08:06 Dose: 0.4 mg Thyroid ([place] Thyroid -) 60 mg PO DAILY@0700 [facility] Last Admin: 02/06/17 06:38 Dose: 60 mg Tiotropium [place] (Spiriva -) 1 puff IH DAILY [facility] Last Admin: 02/06/17 10:18 Dose: 1 puff - Objective Vital Signs: Vital Signs Temperature 98.2 F 02/06/17 08:10 Pulse Rate 98 H 02/06/17 08:15 Respiratory Rate 18 02/06/17 09:00 Blood Pressure 98/52 02/06/17 08:15 O2 Sat by Pulse Oximetry (%) 96 02/06/17 09:00 Constitutional: Yes: Mild Distress Eyes: Yes: WNL HENT: Yes: WNL, Other Cardiovascular: Yes: WNL Respiratory: Yes: On Nasal O2, SOB Gastrointestinal: Yes: WNL Genitourinary: Yes: WNL Musculoskeletal: Yes: WNL Extremities: Yes: WNL Edema: No Peripheral Pulses WNL: Yes Integumentary: Yes: WNL Wound/Incision: Yes: Clean/Dry Neurological: Yes: WNL ...Motor Strength: WNL Psychiatric: Yes: WNL Labs: CBC, BMP 02/05/17 05:00 02/05/17 05:00 INR, PTT INR 1.04 (0.82-1.09) 02/04/17 09:53 Problem List - Problems (1) COPD (chronic obstructive pulmonary disease) Code(s): J44.9 - CHRONIC OBSTRUCTIVE PULMONARY DISEASE, UNSPECIFIED Qualifiers: Emphysema type: unspecified (2) COPD exacerbation Code(s): J44.1 - CHRONIC OBSTRUCTIVE PULMONARY DISEASE W (ACUTE) EXACERBATION (3) Hypothyroid Code(s): E03.9 - HYPOTHYROIDISM, UNSPECIFIED (4) Hypothyroidism Code(s): E03.9 - HYPOTHYROIDISM, UNSPECIFIED (5) Mass of left lung Code(s): R91.8 - OTHER NONSPECIFIC ABNORMAL FINDING OF LUNG FIELD (6) Shortness of breath Code(s): R06.02 - SHORTNESS OF BREATH Assessment/Plan PULMONARY WORKUP LUNG BIOPSY 02 SUPPORT NEBS FOLLOW UP FOR URINARY INCONTINENCE
--- NOTE | 2017-02-06 13:24 | PN ---
Progress Note (short form) - Note Progress Note: PULMONARY AWAKE/ALERT/HOARSENESS OF VOICE ANICTERIC SCATTERED B/L RHONCHI/CRACKLES S1S2 BS+ NO EDEMA/SILVA LABS/MEDS/NOTES/IMAGES NOTED IMP COPD EXACERBATION CONRAD MASS LIKELY MALIGNANT ABDOMINAL DISTENTION ASHD OSAS ON CPAP HTN GERD PLAN IV STEROIDS INHALED BRONCHODILATORS O2 CT GUIDED BX WHEN RESPIRATORY STATUS IMPROVED PET SCAN OUTPATIENT UROLOGIC EVALUATION REVIEWED IVF NEEDED CPAP 7cmH2O as tolerated MONITOR LILIYA KAY MD
[2017-02-06] MEDS: morphine SULFATE 4 MG/ML VIAL IVPUSH PRN ×2 (14:43→23:02)
--- NOTE | 2017-02-06 20:36 | PN ---
Progress Note (short form) - Note Progress Note: anxious about ct finding lung lesion,aware need for bx,dyspnea at rest Current Active Problems ASHD (arteriosclerotic heart disease) (Acute) Abdominal distension (Acute) COPD (chronic obstructive pulmonary disease) (Acute) Laboratory Tests 02/05/17 02/05/17 05:00 05:00 WBC 13.8 H D RBC 4.84 Hct 44.2 MCV 91.3 MCH 30.4 MCHC 33.3 RDW 13.2 Plt Count 267 Sodium 136 Potassium 4.3 Chloride 102 Carbon Dioxide 20 L D Anion Gap 14 BUN 21 H D Creatinine 0.8 Creat Clearance w eGFR > 60 Random Glucose 167 H D COPD exacerbation (Acute) GERD (gastroesophageal reflux disease) (Acute) Hypothyroid (Acute) Hypothyroidism (Acute) Mass of left lung (Acute) Shortness of breath (Acute) Urinary retention (Acute) plan: lung biopsy when stable iv steroid nebulizers lisa thyroid kasia camejo follow up Problem List - Problems (1) Hypothyroidism Code(s): E03.9 - HYPOTHYROIDISM, UNSPECIFIED (2) ASHD (arteriosclerotic heart disease) Code(s): I25.10 - ATHSCL HEART DISEASE OF [place] CORONARY ARTERY W/O ANG PCTRS (3) Abdominal distension Code(s): R14.0 - ABDOMINAL DISTENSION (GASEOUS) (4) COPD (chronic obstructive pulmonary disease) Code(s): J44.9 - CHRONIC OBSTRUCTIVE PULMONARY DISEASE, UNSPECIFIED Qualifiers: Emphysema type: unspecified (5) GERD (gastroesophageal reflux disease) Code(s): K21.9 - GASTRO-ESOPHAGEAL REFLUX DISEASE WITHOUT ESOPHAGITIS (6) Hypothyroid Code(s): E03.9 - HYPOTHYROIDISM, UNSPECIFIED (7) Mass of left lung Code(s): R91.8 - OTHER NONSPECIFIC ABNORMAL FINDING OF LUNG FIELD
[2017-02-06] MEDS ORDERED: ALBUTEROL SO4 0.083% IH SOL 2.5 MG/3 ML VIAL.NEB. NEB ONE (21:08)
[2017-02-06] MEDS: ALBUTEROL SO4 0.5 % INH SOLN 2.5 MG/0.5 ML VIAL.NEB. NEB PRN (21:51)
[2017-02-06] MEDS: ATORVASTATIN CA 10 MG TABLET (FP) PO SCH (22:21)
[2017-02-06] MEDS: MONTELUKAST NA 10 MG TABLET PO SCH (22:21)
[2017-02-07] MEDS: THYROID 60 MG TABLET PO SCH (06:19)
[2017-02-07] MEDS: BETHANECHOL CHLORIDE 25 MG TABLET PO SCH ×3 (06:19→21:22)
[2017-02-07 07:42] LABS: MCHC 33.1 g/dl (32.0-36.0); MEAN CELL VOLUME 90.7 fl (80-96); MEAN PLT VOLUME 7.8 fl (7.5-11.1); PLATELET COUNT 264 K/MM3 (134-434); RDW 13.2 % (11.6-15.6); WHITE BLOOD COUNT 14.7 K/mm3 (4.0-10.0)
[2017-02-07 07:43] LABS: ALBUMIN 3.5 g/dl (3.4-5.0); ALK PHOS 46 U/L (45-117); ANION GAP 7 (8-16); BILIRUBIN,TOTAL 0.5 mg/dL (0.2-1.0); CALCIUM 8.3 mg/dL (8.5-10.1); CO2 28 mmol/L (21-32); CREATININE 0.7 mg/dL (0.55-1.02); GLUCOSE,RANDOM 105 mg/dL (74-106); SGOT/AST 23 U/L (15-37); SGPT/ALT 46 U/L (12-78); TOT PROT 6.6 g/dl (6.4-8.2)
--- NOTE | 2017-02-07 08:46 | PN ---
Progress Note, Physician History of Present Illness: C/O CONSTIPATION BREATHING IS BETTER - Current Medication List Current Medications: Active Medications Acetaminophen (Tylenol -) 650 mg PO Q6H PRN PRN Reason: FEVER OR PAIN Albuterol Sulfate (Ventolin 0.5% -) 1 amp NEB Q4H PRN PRN Reason: SHORT OF BREATH/WHEEZING Last Admin: 02/06/17 21:51 Dose: 1 amp Atorvastatin Calcium (Lipitor -) 10 mg PO HS [facility] Last Admin: 02/06/17 22:21 Dose: 10 mg Bethanechol Chloride (Urecholine -) 25 mg PO TID [facility] Last Admin: 02/07/17 06:19 Dose: 25 mg Budesonide/Formoterol Fumarate (Symbicort 160/4.5mcg -) 2 puff IH BID [facility] Last Admin: 02/06/17 22:22 Dose: 2 puff Diltiazem HCl (Cardizem Cd -) 120 mg PO DAILY [facility] Last Admin: 02/06/17 10:17 Dose: 120 mg Folic Acid (Folic Acid -) 1 mg PO DAILY [facility] Last Admin: 02/06/17 10:17 Dose: 1 mg Levofloxacin (Levaquin 500 Mg Premixed Ivpb -) 500 mg in 100 mls @ 100 mls/hr IVPB DAILY [facility] Last Admin: 02/06/17 10:16 Dose: 100 mls/hr Methylprednisolone Sodium Succinate (Solu-Medrol -) 40 mg IVPUSH DAILY [facility] Last Admin: 02/06/17 10:16 Dose: 40 mg Montelukast Sodium (Singulair -) 10 mg PO HS [facility] Last Admin: 02/06/17 22:21 Dose: 10 mg Morphine Sulfate (Morphine Sulfate) 1 mg IVPUSH Q4H PRN PRN Reason: PAIN Last Admin: 02/06/17 23:02 Dose: 1 mg Paroxetine HCl (Paxil -) 10 mg PO DAILY [facility] Last Admin: 02/06/17 10:17 Dose: 10 mg Spironolactone (Aldactone -) 25 mg PO BID [facility] Last Admin: 02/06/17 22:21 Dose: 25 mg Tamsulosin HCl (Flomax -) 0.4 mg PO DAILY@0830 [facility] Last Admin: 02/06/17 08:06 Dose: 0.4 mg Thyroid ([place] Thyroid -) 60 mg PO DAILY@0700 [facility] Last Admin: 02/07/17 06:19 Dose: 60 mg - Objective Vital Signs: Vital Signs Temperature 98.3 F 02/07/17 02:00 Pulse Rate 89 02/07/17 06:00 Respiratory Rate 20 02/07/17 06:00 Blood Pressure 127/66 02/07/17 06:00 O2 Sat by Pulse Oximetry (%) 95 02/06/17 21:00 Respiratory: Yes: On Nasal O2, Rales Gastrointestinal: Yes: Normal Bowel Sounds, Soft. No: Tenderness Labs: CBC, BMP 02/07/17 05:10 02/07/17 05:10 INR, PTT INR 1.04 (0.82-1.09) 02/04/17 09:53 Problem List - Problems (1) Constipation Assessment/Plan: DULCOLOX MIRALAX Code(s): K59.00 - CONSTIPATION, UNSPECIFIED (2) COPD (chronic obstructive pulmonary disease) Assessment/Plan: STEROIDS NEBS Code(s): J44.9 - CHRONIC OBSTRUCTIVE PULMONARY DISEASE, UNSPECIFIED Qualifiers: Emphysema type: unspecified (3) Hypothyroid Code(s): E03.9 - HYPOTHYROIDISM, UNSPECIFIED (4) Mass of left lung Assessment/Plan: BIOPSY WHEN IMPROVED PET SCAN Code(s): R91.8 - OTHER NONSPECIFIC ABNORMAL FINDING OF LUNG FIELD (5) Urinary retention Assessment/Plan: SILVA IN PLACE Code(s): R33.9 - RETENTION OF URINE, UNSPECIFIED
[2017-02-07] MEDS ORDERED: BISACODYL 10 MG SUPP.RECT RC ONE (09:00)
[2017-02-07] MEDS: FOLIC ACID 1 MG TABLET (FP) PO SCH (09:27)
[2017-02-07] MEDS: methylPREDNISolone NA SUCC 40 MG/1 ML VIAL IVPUSH SCH ×2 (09:27→17:53)
[2017-02-07] MEDS: LEVOFLOXACIN 500 MG IVPB 500 MG/100 ML BAG IVPB SCH (09:27)
[2017-02-07] MEDS: SPIRONOLACTONE 25 MG TABLET (FP) PO SCH ×2 (09:28→21:22)
[2017-02-07] MEDS: TAMSULOSIN HCL 0.4 MG CAP.ER.24H (FP) PO SCH (09:28)
[2017-02-07] MEDS: PARoxetine HCL 10 MG TABLET (FP) PO SCH (09:29)
[2017-02-07] MEDS: POLYETHYLENE GLYCOL 3350 119 GM BTL PO SCH (09:31)
[2017-02-07] MEDS: BUDESONIDE/FORMETEROL FUMARATE 160/4.5 mcg INHALER IH SCH ×2 (09:32→21:22)
[2017-02-07] MEDS: ALBUTEROL SO4 0.5 % INH SOLN 2.5 MG/0.5 ML VIAL.NEB. NEB PRN (10:45)
--- NOTE | 2017-02-07 11:56 | PN ---
Progress Note, Physician History of Present Illness: PULMONARY ALERT,FEELING BETTER,LESS DYSPNEIC,LESS CONGESTED - Current Medication List Current Medications: Active Medications Acetaminophen (Tylenol -) 650 mg PO Q6H PRN PRN Reason: FEVER OR PAIN Albuterol Sulfate (Ventolin 0.5% -) 1 amp NEB Q4H PRN PRN Reason: SHORT OF BREATH/WHEEZING Last Admin: 02/06/17 21:51 Dose: 1 amp Atorvastatin Calcium (Lipitor -) 10 mg PO HS [facility] Last Admin: 02/06/17 22:21 Dose: 10 mg Bethanechol Chloride (Urecholine -) 25 mg PO TID [facility] Last Admin: 02/07/17 06:19 Dose: 25 mg Budesonide/Formoterol Fumarate (Symbicort 160/4.5mcg -) 2 puff IH BID [facility] Last Admin: 02/07/17 09:32 Dose: 2 puff Diltiazem HCl (Cardizem Cd -) 120 mg PO DAILY [facility] Last Admin: 02/07/17 09:28 Dose: 120 mg Folic Acid (Folic Acid -) 1 mg PO DAILY [facility] Last Admin: 02/07/17 09:27 Dose: 1 mg Levofloxacin (Levaquin 500 Mg Premixed Ivpb -) 500 mg in 100 mls @ 100 mls/hr IVPB DAILY [facility] Last Admin: 02/07/17 09:27 Dose: 100 mls/hr Methylprednisolone Sodium Succinate (Solu-Medrol -) 40 mg IVPUSH DAILY [facility] Last Admin: 02/07/17 09:27 Dose: 40 mg Montelukast Sodium (Singulair -) 10 mg PO HS [facility] Last Admin: 02/06/17 22:21 Dose: 10 mg Morphine Sulfate (Morphine Sulfate) 1 mg IVPUSH Q4H PRN PRN Reason: PAIN Last Admin: 02/06/17 23:02 Dose: 1 mg Paroxetine HCl (Paxil -) 10 mg PO DAILY [facility] Last Admin: 02/07/17 09:29 Dose: 10 mg Polyethylene Glycol (Miralax (For Daily Use) -) 17 gm PO DAILY [facility] Last Admin: 02/07/17 09:31 Dose: 17 gm Spironolactone (Aldactone -) 25 mg PO BID [facility] Last Admin: 02/07/17 09:28 Dose: 25 mg Tamsulosin HCl (Flomax -) 0.4 mg PO DAILY@0830 [facility] Last Admin: 02/07/17 09:28 Dose: 0.4 mg Thyroid ([place] Thyroid -) 60 mg PO DAILY@0700 [facility] Last Admin: 02/07/17 06:19 Dose: 60 mg - Objective Vital Signs: Vital Signs Temperature 97.7 F 02/07/17 10:00 Pulse Rate 80 02/07/17 10:00 Respiratory Rate 22 02/07/17 10:00 Blood Pressure 110/60 02/07/17 10:00 O2 Sat by Pulse Oximetry (%) 99 02/07/17 09:00 Constitutional: Yes: Well Nourished, Calm Eyes: Yes: WNL HENT: Yes: WNL Neck: Yes: WNL Cardiovascular: Yes: Regular Rate and Rhythm, S1, S2 Respiratory: Yes: Wheezes (SCATTERED ANDRE WHEEZES) Gastrointestinal: Yes: Normal Bowel Sounds, Soft Extremities: Yes: WNL Edema: No Labs: CBC, BMP 02/07/17 05:10 02/07/17 05:10 INR, PTT INR 1.04 (0.82-1.09) 02/04/17 09:53 Problem List - Problems (1) Shortness of breath Code(s): R06.02 - SHORTNESS OF BREATH (2) COPD (chronic obstructive pulmonary disease) Code(s): J44.9 - CHRONIC OBSTRUCTIVE PULMONARY DISEASE, UNSPECIFIED Qualifiers: Emphysema type: unspecified (3) COPD exacerbation Code(s): J44.1 - CHRONIC OBSTRUCTIVE PULMONARY DISEASE W (ACUTE) EXACERBATION (4) Mass of left lung Code(s): R91.8 - OTHER NONSPECIFIC ABNORMAL FINDING OF LUNG FIELD (5) Abdominal distension Code(s): R14.0 - ABDOMINAL DISTENSION (GASEOUS) (6) GERD (gastroesophageal reflux disease) Code(s): K21.9 - GASTRO-ESOPHAGEAL REFLUX DISEASE WITHOUT ESOPHAGITIS (7) Hypothyroid Code(s): E03.9 - HYPOTHYROIDISM, UNSPECIFIED (8) ASHD (arteriosclerotic heart disease) Code(s): I25.10 - ATHSCL HEART DISEASE OF [place] CORONARY ARTERY W/O ANG PCTRS Assessment/Plan IMP COPD EXACERBATION CONRAD MASS LIKELY MALIGNANT ABDOMINAL DISTENTION ASHD OSAS ON CPAP HTN GERD PLAN IV STEROIDS WILL INCREASE DOSE INHALED BRONCHODILATORS O2 CT GUIDED BX WHEN RESPIRATORY STATUS IMPROVES POSSIBLY IN AM PETS SCAN OUTPATIENT CPAP 7cmH2O AT BEDTIME MONITOR ROM LOVELL DR Problem List - Problems (1) Shortness of breath Code(s): R06.02 - SHORTNESS OF BREATH (2) COPD (chronic obstructive pulmonary disease) Code(s): J44.9 - CHRONIC OBSTRUCTIVE PULMONARY DISEASE, UNSPECIFIED Qualifiers: Emphysema type: unspecified (3) COPD exacerbation Code(s): J44.1 - CHRONIC OBSTRUCTIVE PULMONARY DISEASE W (ACUTE) EXACERBATION (4) Mass of left lung Code(s): R91.8 - OTHER NONSPECIFIC ABNORMAL FINDING OF LUNG FIELD (5) Abdominal distension Code(s): R14.0 - ABDOMINAL DISTENSION (GASEOUS) (6) GERD (gastroesophageal reflux disease) Code(s): K21.9 - GASTRO-ESOPHAGEAL REFLUX DISEASE WITHOUT ESOPHAGITIS (7) Hypothyroid Code(s): E03.9 - HYPOTHYROIDISM, UNSPECIFIED (8) ASHD (arteriosclerotic heart disease) Code(s): I25.10 - ATHSCL HEART DISEASE OF [place] CORONARY ARTERY W/O ANG PCTRS
[2017-02-07 16:25] LABS: ALDOLASE 6.1 U/L (3.3-10.3)
[2017-02-07] MEDS: MONTELUKAST NA 10 MG TABLET PO SCH (21:22)
[2017-02-07] MEDS: ATORVASTATIN CA 10 MG TABLET (FP) PO SCH (21:22)
--- NOTE | 2017-02-07 22:58 | PN ---
Progress Note (short form) - Note Progress Note: anxious about procedure and ct finding breathing better feelin better Current Active Problems ASHD (arteriosclerotic heart disease) (Acute) Abdominal distension (Acute) COPD (chronic obstructive pulmonary disease) (Acute) COPD exacerbation (Acute) Constipation (Acute) GERD (gastroesophageal reflux disease) (Acute) Hypothyroid (Acute) Hypothyroidism (Acute) Mass of left lung (Acute) Shortness of breath (Acute) Urinary retention (Acute) Abnormal Lab Results 02/05/17 02/07/17 02/07/17 05:00 05:10 05:10 WBC 14.7 H Anion Gap 7 L BUN 20 H Calcium 8.3 L Myoglobin 202 H plan: continue synthroid dose pulmonary procedure planned xanax for anxiety ordered Problem List - Problems (1) Hypothyroidism Code(s): E03.9 - HYPOTHYROIDISM, UNSPECIFIED (2) ASHD (arteriosclerotic heart disease) Code(s): I25.10 - ATHSCL HEART DISEASE OF [place] CORONARY ARTERY W/O ANG PCTRS (3) Abdominal distension Code(s): R14.0 - ABDOMINAL DISTENSION (GASEOUS) (4) COPD (chronic obstructive pulmonary disease) Code(s): J44.9 - CHRONIC OBSTRUCTIVE PULMONARY DISEASE, UNSPECIFIED Qualifiers: Emphysema type: unspecified (5) GERD (gastroesophageal reflux disease) Code(s): K21.9 - GASTRO-ESOPHAGEAL REFLUX DISEASE WITHOUT ESOPHAGITIS (6) Hypothyroid Code(s): E03.9 - HYPOTHYROIDISM, UNSPECIFIED (7) Mass of left lung Code(s): R91.8 - OTHER NONSPECIFIC ABNORMAL FINDING OF LUNG FIELD
[2017-02-07] MEDS: ALPRAZolam 0.25 MG TABLET PO PRN (23:28)
[2017-02-08] MEDS: methylPREDNISolone NA SUCC 40 MG/1 ML VIAL IVPUSH SCH ×3 (02:06→17:11)
[2017-02-08] MEDS: BETHANECHOL CHLORIDE 25 MG TABLET PO SCH ×3 (06:43→21:56)
[2017-02-08] MEDS: THYROID 60 MG TABLET PO SCH (06:43)
--- NOTE | 2017-02-08 08:08 | PN ---
Progress Note, Physician History of Present Illness: C/O CONSTIPATION BREATHING IS BETTER - Current Medication List Current Medications: Active Medications Acetaminophen (Tylenol -) 650 mg PO Q6H PRN PRN Reason: FEVER OR PAIN Albuterol Sulfate (Ventolin 0.5% -) 1 amp NEB Q4H PRN PRN Reason: SHORT OF BREATH/WHEEZING Last Admin: 02/07/17 10:45 Dose: 1 amp Alprazolam (Xanax -) 0.5 mg PO Q12H PRN PRN Reason: ANXIETY Last Admin: 02/07/17 23:28 Dose: 0.5 mg Atorvastatin Calcium (Lipitor -) 10 mg PO HS [facility] Last Admin: 02/07/17 21:22 Dose: 10 mg Bethanechol Chloride (Urecholine -) 25 mg PO TID [facility] Last Admin: 02/08/17 06:43 Dose: 25 mg Budesonide/Formoterol Fumarate (Symbicort 160/4.5mcg -) 2 puff IH BID [facility] Last Admin: 02/07/17 21:22 Dose: 2 puff Diltiazem HCl (Cardizem Cd -) 120 mg PO DAILY [facility] Last Admin: 02/07/17 09:28 Dose: 120 mg Folic Acid (Folic Acid -) 1 mg PO DAILY [facility] Last Admin: 02/07/17 09:27 Dose: 1 mg Levofloxacin (Levaquin 500 Mg Premixed Ivpb -) 500 mg in 100 mls @ 100 mls/hr IVPB DAILY [facility] Last Admin: 02/07/17 09:27 Dose: 100 mls/hr Methylprednisolone Sodium Succinate (Solu-Medrol -) 40 mg IVPUSH Q8H-IV [facility] Last Admin: 02/08/17 02:06 Dose: 40 mg Montelukast Sodium (Singulair -) 10 mg PO HS [facility] Last Admin: 02/07/17 21:22 Dose: 10 mg Morphine Sulfate (Morphine Sulfate) 1 mg IVPUSH Q4H PRN PRN Reason: PAIN Last Admin: 02/06/17 23:02 Dose: 1 mg Paroxetine HCl (Paxil -) 10 mg PO DAILY [facility] Last Admin: 02/07/17 09:29 Dose: 10 mg Polyethylene Glycol (Miralax (For Daily Use) -) 17 gm PO DAILY [facility] Last Admin: 02/07/17 09:31 Dose: 17 gm Spironolactone (Aldactone -) 25 mg PO BID [facility] Last Admin: 02/07/17 21:22 Dose: 25 mg Tamsulosin HCl (Flomax -) 0.4 mg PO DAILY@0830 [facility] Last Admin: 02/07/17 09:28 Dose: 0.4 mg Thyroid ([place] Thyroid -) 60 mg PO DAILY@0700 [facility] Last Admin: 02/08/17 06:43 Dose: 60 mg - Objective Vital Signs: Vital Signs Temperature 98.2 F 02/08/17 08:00 Pulse Rate 78 02/08/17 08:00 Respiratory Rate 16 02/08/17 08:00 Blood Pressure 124/64 02/08/17 08:00 O2 Sat by Pulse Oximetry (%) 95 02/07/17 20:20 Cardiovascular: Yes: Regular Rate and Rhythm Respiratory: Yes: On Nasal O2, Rhonchi, Wheezes Gastrointestinal: Yes: Normal Bowel Sounds, Soft Labs: CBC, BMP 02/07/17 05:10 02/07/17 05:10 INR, PTT INR 1.04 (0.82-1.09) 02/04/17 09:53 Problem List - Problems (1) Constipation Assessment/Plan: DULCOLOX GIVEN--WITH GOOD RESULTS MIRALAX Code(s): K59.00 - CONSTIPATION, UNSPECIFIED (2) COPD (chronic obstructive pulmonary disease) Assessment/Plan: STEROIDS NEBS Code(s): J44.9 - CHRONIC OBSTRUCTIVE PULMONARY DISEASE, UNSPECIFIED Qualifiers: Emphysema type: unspecified (3) Hypothyroid Code(s): E03.9 - HYPOTHYROIDISM, UNSPECIFIED (4) Mass of left lung Assessment/Plan: BIOPSY WHEN IMPROVED PET SCAN Code(s): R91.8 - OTHER NONSPECIFIC ABNORMAL FINDING OF LUNG FIELD (5) Urinary retention Assessment/Plan: SILVA IN PLACE TRIAL OF VOIDING Code(s): R33.9 - RETENTION OF URINE, UNSPECIFIED
[2017-02-08] MEDS: ALBUTEROL SO4 2.5/IPRATROPIUM 0.5 INH SOL 3 ML VIAL.NEB. NEB SCH ×3 (09:00→22:12)
[2017-02-08] MEDS: TAMSULOSIN HCL 0.4 MG CAP.ER.24H (FP) PO SCH (09:26)
[2017-02-08] MEDS: FOLIC ACID 1 MG TABLET (FP) PO SCH (09:26)
[2017-02-08] MEDS: LEVOFLOXACIN 500 MG IVPB 500 MG/100 ML BAG IVPB SCH (09:26)
[2017-02-08] MEDS: SPIRONOLACTONE 25 MG TABLET (FP) PO SCH ×2 (09:26→21:56)
[2017-02-08] MEDS ORDERED: PT OWN MED DRAWER 7, Y5N ONE (09:29)
[2017-02-08] MEDS: PARoxetine HCL 10 MG TABLET (FP) PO SCH (09:30)
[2017-02-08] MEDS: BUDESONIDE/FORMETEROL FUMARATE 160/4.5 mcg INHALER IH SCH ×2 (09:30→21:56)
[2017-02-08] MEDS: POLYETHYLENE GLYCOL 3350 119 GM BTL PO SCH (09:37)
[2017-02-08] MEDS ORDERED: ALPRAZolam 0.25 MG TABLET PO SCH (10:00)
--- NOTE | 2017-02-08 11:03 | PN ---
Progress Note, Physician History of Present Illness: pulmonary alert,slowly improving,less dyspneic. - Current Medication List Current Medications: Active Medications Acetaminophen (Tylenol -) 650 mg PO Q6H PRN PRN Reason: FEVER OR PAIN Albuterol Sulfate (Ventolin 0.5% -) 1 amp NEB Q4H PRN PRN Reason: SHORT OF BREATH/WHEEZING Last Admin: 02/07/17 10:45 Dose: 1 amp Albuterol/Ipratropium (Duoneb -) 1 amp NEB TIDR [facility] Last Admin: 02/08/17 09:00 Dose: 1 amp Alprazolam (Xanax -) 0.5 mg PO Q12H PRN PRN Reason: ANXIETY Last Admin: 02/07/17 23:28 Dose: 0.5 mg Atorvastatin Calcium (Lipitor -) 10 mg PO HS [facility] Last Admin: 02/07/17 21:22 Dose: 10 mg Bethanechol Chloride (Urecholine -) 25 mg PO TID [facility] Last Admin: 02/08/17 06:43 Dose: 25 mg Budesonide/Formoterol Fumarate (Symbicort 160/4.5mcg -) 2 puff IH BID [facility] Last Admin: 02/08/17 09:30 Dose: 2 puff Diltiazem HCl (Cardizem Cd -) 120 mg PO DAILY [facility] Last Admin: 02/08/17 09:26 Dose: 120 mg Folic Acid (Folic Acid -) 1 mg PO DAILY [facility] Last Admin: 02/08/17 09:26 Dose: 1 mg Levofloxacin (Levaquin 500 Mg Premixed Ivpb -) 500 mg in 100 mls @ 100 mls/hr IVPB DAILY [facility] Last Admin: 02/08/17 09:26 Dose: 100 mls/hr Methylprednisolone Sodium Succinate (Solu-Medrol -) 40 mg IVPUSH Q8H-IV [facility] Last Admin: 02/08/17 09:26 Dose: 40 mg Montelukast Sodium (Singulair -) 10 mg PO HS [facility] Last Admin: 02/07/17 21:22 Dose: 10 mg Morphine Sulfate (Morphine Sulfate) 1 mg IVPUSH Q4H PRN PRN Reason: PAIN Last Admin: 02/06/17 23:02 Dose: 1 mg Paroxetine HCl (Paxil -) 10 mg PO DAILY [facility] Last Admin: 02/08/17 09:30 Dose: 10 mg Polyethylene Glycol (Miralax (For Daily Use) -) 17 gm PO DAILY [facility] Last Admin: 02/08/17 09:37 Dose: Not Given Spironolactone (Aldactone -) 25 mg PO BID [facility] Last Admin: 02/08/17 09:26 Dose: 25 mg Tamsulosin HCl (Flomax -) 0.4 mg PO DAILY@0830 [facility] Last Admin: 02/08/17 09:26 Dose: 0.4 mg Thyroid ([place] Thyroid -) 60 mg PO DAILY@0700 [facility] Last Admin: 02/08/17 06:43 Dose: 60 mg - Objective Vital Signs: Vital Signs Temperature 98.2 F 02/08/17 08:00 Pulse Rate 80 02/08/17 09:00 Respiratory Rate 16 02/08/17 09:00 Blood Pressure 124/64 02/08/17 08:00 O2 Sat by Pulse Oximetry (%) 96 02/08/17 09:00 Constitutional: Yes: Well Nourished, Calm Eyes: Yes: WNL HENT: Yes: WNL Neck: Yes: WNL Cardiovascular: Yes: Regular Rate and Rhythm, S1, S2 Respiratory: Yes: Wheezes (scattered hanny wheezes) Gastrointestinal: Yes: Normal Bowel Sounds, Soft Extremities: Yes: WNL Edema: No Labs: Problem List - Problems (1) Shortness of breath Code(s): R06.02 - SHORTNESS OF BREATH (2) COPD (chronic obstructive pulmonary disease) Code(s): J44.9 - CHRONIC OBSTRUCTIVE PULMONARY DISEASE, UNSPECIFIED Qualifiers: Emphysema type: unspecified (3) COPD exacerbation Code(s): J44.1 - CHRONIC OBSTRUCTIVE PULMONARY DISEASE W (ACUTE) EXACERBATION (4) Mass of left lung Code(s): R91.8 - OTHER NONSPECIFIC ABNORMAL FINDING OF LUNG FIELD (5) Abdominal distension Code(s): R14.0 - ABDOMINAL DISTENSION (GASEOUS) (6) GERD (gastroesophageal reflux disease) Code(s): K21.9 - GASTRO-ESOPHAGEAL REFLUX DISEASE WITHOUT ESOPHAGITIS (7) Hypothyroid Code(s): E03.9 - HYPOTHYROIDISM, UNSPECIFIED (8) ASHD (arteriosclerotic heart disease) Code(s): I25.10 - ATHSCL HEART DISEASE OF [place] CORONARY ARTERY W/O ANG PCTRS Assessment/Plan IMP COPD EXACERBATION CONRAD MASS LIKELY MALIGNANT ABDOMINAL DISTENTION ASHD OSAS ON CPAP HTN GERD PULMONARY HTN PLAN IV STEROIDS SAME DOSE INHALED BRONCHODILATORS O2 CT GUIDED BX WHEN RESPIRATORY STATUS IMPROVES PETS SCAN OUTPATIENT CPAP 7cmH2O AT BEDTIME MONITOR ROM LOVELL DR Problem List - Problems (1) Shortness of breath Code(s): R06.02 - SHORTNESS OF BREATH (2) COPD (chronic obstructive pulmonary disease) Code(s): J44.9 - CHRONIC OBSTRUCTIVE PULMONARY DISEASE, UNSPECIFIED Qualifiers: Emphysema type: unspecified (3) COPD exacerbation Code(s): J44.1 - CHRONIC OBSTRUCTIVE PULMONARY DISEASE W (ACUTE) EXACERBATION (4) Mass of left lung Code(s): R91.8 - OTHER NONSPECIFIC ABNORMAL FINDING OF LUNG FIELD (5) Abdominal distension Code(s): R14.0 - ABDOMINAL DISTENSION (GASEOUS) (6) GERD (gastroesophageal reflux disease) Code(s): K21.9 - GASTRO-ESOPHAGEAL REFLUX DISEASE WITHOUT ESOPHAGITIS (7) Hypothyroid Code(s): E03.9 - HYPOTHYROIDISM, UNSPECIFIED (8) ASHD (arteriosclerotic heart disease) Code(s): I25.10 - ATHSCL HEART DISEASE OF [place] CORONARY ARTERY W/O ANG PCTRS
--- NOTE | 2017-02-08 12:01 | CON.CARD ---
Consult Consult Specialty:: Cardiology Referred by:: Dr. Lewis Gallardo Reason for Consultation:: Cardiac evaluation - History of Present Illness Chief Complaint: SOB History of Present Illness: Patient is a 61 year old female well known to us (sees Dr. Lenard Magallon) with underlying history of coronary artery disease, non-obstructive, angina pectoris , diastolic left ventricular dysfunction with class 0 NYHA classification heart failure, redundant mitral valve leaflet with mild mitral valve regurgitation, hypertension, NIDDM, hypercholesterolemia and PVD. Patient also has history of hypothyroidism, degenerative disc disease, OSAS and GERD. She now has pulmonary nodule for which she is awaiting biopsy. She presented with shortness of breath and abdominal fullness. She feels better this am. She denies chest pain or palpitations. She is breathing comfortable and abdominal distension has improved. She denies paroxysmal nocturnal dyspnea or orthopnea. She denies fever or chills. She denies headache or lightheadedness. Cardiology consultation was called for further evaluation. - History Source History Provided By: Patient, Medical Record Limitations to Obtaining History: No Limitations - Past Medical History Cardio/Vascular: Yes: CAD, CHF, HTN, Hyperlipdemia Gastrointestinal: Yes: GERD Heme/Onc: Yes: Anemia Endocrine: Yes: Diabetes Mellitus, Hypothyroidism - Alcohol/Substance Use Hx Alcohol Use: No - Smoking History Smoking history: Current every day smoker Have you smoked in the past 12 months: Yes Aproximately how many cigarettes per day: 5 Home Medications - Allergies Allergies/Adverse Reactions: Allergies Allergy/AdvReac Type Severity Reaction Status Date / Time pistachio nut Allergy Verified 02/04/17 09:12 shrimp Allergy Verified 02/04/17 09:12 tree and shrub pollen Allergy Verified 02/04/17 09:12 tree pollen Allergy Uncoded 02/04/17 09:12 - Home Medications Home Medications: Ambulatory Orders Atorvastatin Ca [Lipitor] 20 mg PO HS 02/04/17 Cyanocobalamin (Vitamin B-12) [B-12] 500 mcg PO WEEKLY 02/04/17 Desloratadine/Pseudoephedrine [Clarinex-D 12 Hour Tablet] 1 each PO DAILY Diltiazem Cd [Cardizem Cd -] 120 mg PO DAILY 02/04/17 Folic Acid 1 mg PO DAILY 02/04/17 Mesalamine 1.2 gm PO ASDIR 02/04/17 Montelukast Na [Singulair -] 10 mg PO HS 02/04/17 Paroxetine HCl [Paxil] 20 mg PO DAILY 02/04/17 Spironolactone [Aldactone] 25 mg PO DAILY 02/04/17 Thyroid [[place] Thyroid] 60 mg PO DAILY 02/04/17 Valsartan/Hydrochlorothiazide [Valsartan-Hctz 160-12.5 mg Tab] 1 each PO DAILY 02/04/17 Review of Systems - Review of Systems Constitutional: denies: Chills, Fever Cardiovascular: reports: Shortness of Breath. denies: Chest Pain, Palpitations Respiratory: reports: Cough, SOB. denies: Hemoptysis, Orthopnea Gastrointestinal: reports: Bloating, Constipation. denies: Abdominal Pain, Diarrhea, Melena, Nausea, Rectal Bleeding, Vomiting Genitourinary: denies: Dysuria Neurological: denies: Dizziness, Headache, Seizure, Syncope, Weakness Endocrine: denies: Intolerance to Cold, Intolerance to Heat Vital Signs: Vital Signs Temperature 98.2 F 02/08/17 08:00 Pulse Rate 80 02/08/17 09:00 Respiratory Rate 16 02/08/17 09:00 Blood Pressure 124/64 02/08/17 08:00 O2 Sat by Pulse Oximetry (%) 96 02/08/17 09:00 Neck: Yes: Supple Respiratory: Yes: Diminished Gastrointestinal: Yes: Normal Bowel Sounds, Soft. No: Tenderness Cardiovascular: Yes: Regular Rate and Rhythm JVD: No Carotid Bruit: No PMI: Non-Displaced Heart Sounds: Yes: S1, S2 Murmur: Yes: Systolic Murmur, Grade 1 Edema: No - Other Data Labs, Other Data: CBC, BMP 02/07/17 05:10 02/07/17 05:10 INR, PTT INR 1.04 (0.82-1.09) 02/04/17 09:53 Laboratory Results - last 24 hr 02/05/17 05:00 Aldolase 6.1 Sinus rhythm, nonspecific T wave abnormality Echo: Report Reviewed (Normal LV systolic function, trace to mild MR, TR) Problem List - Problems (1) HTN (hypertension) Code(s): I10 - ESSENTIAL (PRIMARY) HYPERTENSION Qualifiers: Hypertension type: essential hypertension Qualified Code(s): I10 - Essential (primary) hypertension (2) Hypercholesterolemia Code(s): E78.00 - PURE HYPERCHOLESTEROLEMIA, UNSPECIFIED (3) Diabetes mellitus Code(s): E11.9 - TYPE 2 DIABETES MELLITUS WITHOUT COMPLICATIONS Qualifiers: Diabetes mellitus type: type 2 Diabetes mellitus complication status: without complication Diabetes mellitus oil heaterman insulin use: without oil heaterman use Qualified Code(s): E11.9 - Type 2 diabetes mellitus without complications (4) ANA (obstructive sleep apnea) Code(s): G47.33 - OBSTRUCTIVE SLEEP APNEA (ADULT) (PEDIATRIC) (5) ASHD (arteriosclerotic heart disease) Code(s): I25.10 - ATHSCL HEART DISEASE OF [place] CORONARY ARTERY W/O ANG PCTRS (6) COPD (chronic obstructive pulmonary disease) Code(s): J44.9 - CHRONIC OBSTRUCTIVE PULMONARY DISEASE, UNSPECIFIED Qualifiers: Emphysema type: unspecified (7) COPD exacerbation Code(s): J44.1 - CHRONIC OBSTRUCTIVE PULMONARY DISEASE W (ACUTE) EXACERBATION (8) GERD (gastroesophageal reflux disease) Code(s): K21.9 - GASTRO-ESOPHAGEAL REFLUX DISEASE WITHOUT ESOPHAGITIS Qualifiers: Esophagitis presence: without esophagitis Qualified Code(s): K21.9 - Gastro -esophageal reflux disease without esophagitis (9) Hypothyroidism Code(s): E03.9 - HYPOTHYROIDISM, UNSPECIFIED Qualifiers: Hypothyroidism type: unspecified Qualified Code(s): E03.9 - Hypothyroidism , unspecified (10) Mass of left lung Code(s): R91.8 - OTHER NONSPECIFIC ABNORMAL FINDING OF LUNG FIELD (11) Shortness of breath Code(s): R06.02 - SHORTNESS OF BREATH Assessment/Plan 1. Dyspnea with pulmonary nodule, possible malignancy and COPD exacerbation- await biopsy 2. CAD - non-obstructive, angina pectoris 3. HTN/HCVD 4. Diastolic LV dysfunction 5. Hypercholesterolemia 6. NIDDM 7. Hypothyroidism 8. PVD 9. Anemia 10. Degenerative disc disease 11. OSAS PLAN: 1. Proceed with CT guided biopsy and further plans are to follow 2. Continue Cardizem CD 3. Continue Atorvastatin 4. Continue Spironolactone 5. PET scan as outpatient for further malignancy work up. 6. Steroid taper and inhaled bronchodilator 7. Empiric antibiotic coverage 8. Cardiac testing from office: PVR no significant arterial insufficiency, carotid Doppler mild heterogeneous plaque in the right common carotid artery bifurcation, Nuclear MPI small lexa-apical defect c/w soft tissue attenuation/ apical thinning, LVEF 77% rest and 67% stress Further plans are to follow Wilton Lubin MD
[2017-02-08] MEDS: ALPRAZolam 0.25 MG TABLET PO PRN (13:22)
[2017-02-08] MEDS: MONTELUKAST NA 10 MG TABLET PO SCH (21:56)
[2017-02-08] MEDS: ATORVASTATIN CA 10 MG TABLET (FP) PO SCH (21:56)
[2017-02-09] MEDS: methylPREDNISolone NA SUCC 40 MG/1 ML VIAL IVPUSH SCH ×3 (03:15→17:59)
[2017-02-09] MEDS ORDERED: PT OWN MED DRAWER 7, Y5N ONE ×3 (05:47→09:57)
[2017-02-09] MEDS: THYROID 60 MG TABLET PO SCH (06:32)
[2017-02-09] MEDS: BETHANECHOL CHLORIDE 25 MG TABLET PO SCH ×3 (06:32→21:37)
[2017-02-09] MEDS: ALBUTEROL SO4 2.5/IPRATROPIUM 0.5 INH SOL 3 ML VIAL.NEB. NEB SCH ×3 (06:35→22:17)
[2017-02-09] MEDS: TAMSULOSIN HCL 0.4 MG CAP.ER.24H (FP) PO SCH (08:52)
[2017-02-09] MEDS: FOLIC ACID 1 MG TABLET (FP) PO SCH (09:54)
[2017-02-09] MEDS: LEVOFLOXACIN 500 MG IVPB 500 MG/100 ML BAG IVPB SCH (09:54)
[2017-02-09] MEDS: SPIRONOLACTONE 25 MG TABLET (FP) PO SCH ×2 (09:54→21:37)
[2017-02-09] MEDS: BUDESONIDE/FORMETEROL FUMARATE 160/4.5 mcg INHALER IH SCH ×2 (09:54→21:37)
[2017-02-09] MEDS: PARoxetine HCL 10 MG TABLET (FP) PO SCH (09:57)
--- NOTE | 2017-02-09 10:13 | PN ---
Progress Note, Physician History of Present Illness: C/O CONSTIPATION BREATHING IS BETTER - Current Medication List Current Medications: Active Medications Acetaminophen (Tylenol -) 650 mg PO Q6H PRN PRN Reason: FEVER OR PAIN Albuterol Sulfate (Ventolin 0.5% -) 1 amp NEB Q4H PRN PRN Reason: SHORT OF BREATH/WHEEZING Last Admin: 02/07/17 10:45 Dose: 1 amp Albuterol/Ipratropium (Duoneb -) 1 amp NEB TIDR [facility] Last Admin: 02/09/17 06:35 Dose: 1 amp Alprazolam (Xanax -) 0.5 mg PO Q12H PRN PRN Reason: ANXIETY Last Admin: 02/08/17 13:22 Dose: 0.5 mg Atorvastatin Calcium (Lipitor -) 10 mg PO HS [facility] Last Admin: 02/08/17 21:56 Dose: 10 mg Bethanechol Chloride (Urecholine -) 25 mg PO TID [facility] Last Admin: 02/09/17 06:32 Dose: 25 mg Budesonide/Formoterol Fumarate (Symbicort 160/4.5mcg -) 2 puff IH BID [facility] Last Admin: 02/09/17 09:54 Dose: 2 puff Diltiazem HCl (Cardizem Cd -) 120 mg PO DAILY [facility] Last Admin: 02/09/17 09:54 Dose: 120 mg Folic Acid (Folic Acid -) 1 mg PO DAILY [facility] Last Admin: 02/09/17 09:54 Dose: 1 mg Levofloxacin (Levaquin 500 Mg Premixed Ivpb -) 500 mg in 100 mls @ 100 mls/hr IVPB DAILY [facility] Last Admin: 02/09/17 09:54 Dose: 100 mls/hr Methylprednisolone Sodium Succinate (Solu-Medrol -) 40 mg IVPUSH Q8H-IV [facility] Last Admin: 02/09/17 09:54 Dose: 40 mg Montelukast Sodium (Singulair -) 10 mg PO HS [facility] Last Admin: 02/08/17 21:56 Dose: 10 mg Morphine Sulfate (Morphine Sulfate) 1 mg IVPUSH Q4H PRN PRN Reason: PAIN Last Admin: 02/06/17 23:02 Dose: 1 mg Paroxetine HCl (Paxil -) 10 mg PO DAILY [facility] Last Admin: 02/09/17 09:57 Dose: 10 mg Polyethylene Glycol (Miralax (For Daily Use) -) 17 gm PO DAILY [facility] Last Admin: 02/08/17 09:37 Dose: Not Given Spironolactone (Aldactone -) 25 mg PO BID [facility] Last Admin: 02/09/17 09:54 Dose: 25 mg Tamsulosin HCl (Flomax -) 0.4 mg PO DAILY@0830 [facility] Last Admin: 02/09/17 08:52 Dose: 0.4 mg Thyroid ([place] Thyroid -) 60 mg PO DAILY@0700 [facility] Last Admin: 02/09/17 06:32 Dose: 60 mg - Objective Vital Signs: Vital Signs Temperature 98.4 F 02/09/17 05:11 Pulse Rate 84 02/09/17 05:11 Respiratory Rate 20 02/09/17 05:11 Blood Pressure 101/54 02/09/17 05:11 O2 Sat by Pulse Oximetry (%) 97 02/08/17 20:47 Cardiovascular: Yes: Regular Rate and Rhythm Respiratory: Yes: On Nasal O2, Rhonchi Gastrointestinal: Yes: Normal Bowel Sounds, Soft Labs: CBC, BMP 02/07/17 05:10 02/07/17 05:10 INR, PTT INR 1.04 (0.82-1.09) 02/04/17 09:53 Problem List - Problems (1) Constipation Assessment/Plan: DULCOLOX GIVEN--WITH GOOD RESULTS MIRALAX Code(s): K59.00 - CONSTIPATION, UNSPECIFIED (2) COPD (chronic obstructive pulmonary disease) Assessment/Plan: STEROIDS NEBS Code(s): J44.9 - CHRONIC OBSTRUCTIVE PULMONARY DISEASE, UNSPECIFIED Qualifiers: Emphysema type: unspecified (3) Hypothyroid Code(s): E03.9 - HYPOTHYROIDISM, UNSPECIFIED (4) Mass of left lung Assessment/Plan: BIOPSY WHEN IMPROVED PET SCAN OUTPATIENT Code(s): R91.8 - OTHER NONSPECIFIC ABNORMAL FINDING OF LUNG FIELD (5) Urinary retention Assessment/Plan: SHIRA PHELAN TRIAL OF VOIDING Code(s): R33.9 - RETENTION OF URINE, UNSPECIFIED
--- NOTE | 2017-02-09 10:39 | PN ---
Progress Note, Physician History of Present Illness: pulmonary alert,still c/o sob with exertion,+cough,-cp. - Current Medication List Current Medications: Active Medications Acetaminophen (Tylenol -) 650 mg PO Q6H PRN PRN Reason: FEVER OR PAIN Albuterol Sulfate (Ventolin 0.5% -) 1 amp NEB Q4H PRN PRN Reason: SHORT OF BREATH/WHEEZING Last Admin: 02/07/17 10:45 Dose: 1 amp Albuterol/Ipratropium (Duoneb -) 1 amp NEB TIDR [facility] Last Admin: 02/09/17 06:35 Dose: 1 amp Alprazolam (Xanax -) 0.5 mg PO Q12H PRN PRN Reason: ANXIETY Last Admin: 02/08/17 13:22 Dose: 0.5 mg Atorvastatin Calcium (Lipitor -) 10 mg PO HS [facility] Last Admin: 02/08/17 21:56 Dose: 10 mg Bethanechol Chloride (Urecholine -) 25 mg PO TID [facility] Last Admin: 02/09/17 06:32 Dose: 25 mg Budesonide/Formoterol Fumarate (Symbicort 160/4.5mcg -) 2 puff IH BID [facility] Last Admin: 02/09/17 09:54 Dose: 2 puff Diltiazem HCl (Cardizem Cd -) 120 mg PO DAILY [facility] Last Admin: 02/09/17 09:54 Dose: 120 mg Folic Acid (Folic Acid -) 1 mg PO DAILY [facility] Last Admin: 02/09/17 09:54 Dose: 1 mg Levofloxacin (Levaquin 500 Mg Premixed Ivpb -) 500 mg in 100 mls @ 100 mls/hr IVPB DAILY [facility] Last Admin: 02/09/17 09:54 Dose: 100 mls/hr Methylprednisolone Sodium Succinate (Solu-Medrol -) 40 mg IVPUSH Q8H-IV [facility] Last Admin: 02/09/17 09:54 Dose: 40 mg Montelukast Sodium (Singulair -) 10 mg PO HS [facility] Last Admin: 02/08/17 21:56 Dose: 10 mg Morphine Sulfate (Morphine Sulfate) 1 mg IVPUSH Q4H PRN PRN Reason: PAIN Last Admin: 02/06/17 23:02 Dose: 1 mg Paroxetine HCl (Paxil -) 10 mg PO DAILY [facility] Last Admin: 02/09/17 09:57 Dose: 10 mg Polyethylene Glycol (Miralax (For Daily Use) -) 17 gm PO DAILY [facility] Last Admin: 02/08/17 09:37 Dose: Not Given Spironolactone (Aldactone -) 25 mg PO BID [facility] Last Admin: 02/09/17 09:54 Dose: 25 mg Tamsulosin HCl (Flomax -) 0.4 mg PO DAILY@0830 [facility] Last Admin: 02/09/17 08:52 Dose: 0.4 mg Thyroid ([place] Thyroid -) 60 mg PO DAILY@0700 [facility] Last Admin: 02/09/17 06:32 Dose: 60 mg - Objective Vital Signs: Vital Signs Temperature 98.4 F 02/09/17 05:11 Pulse Rate 84 02/09/17 05:11 Respiratory Rate 20 02/09/17 05:11 Blood Pressure 101/54 02/09/17 05:11 O2 Sat by Pulse Oximetry (%) 97 02/08/17 20:47 Constitutional: Yes: Well Nourished, Calm Eyes: Yes: WNL HENT: Yes: WNL Neck: Yes: WNL Cardiovascular: Yes: Regular Rate and Rhythm, S1, S2 Respiratory: Yes: Wheezes (scattered hanny wheezes) Gastrointestinal: Yes: Normal Bowel Sounds, Soft Extremities: Yes: WNL Labs: CBC, BMP 02/07/17 05:10 02/07/17 05:10 INR, PTT INR 1.04 (0.82-1.09) 02/04/17 09:53 Problem List - Problems (1) Shortness of breath Code(s): R06.02 - SHORTNESS OF BREATH (2) COPD (chronic obstructive pulmonary disease) Code(s): J44.9 - CHRONIC OBSTRUCTIVE PULMONARY DISEASE, UNSPECIFIED Qualifiers: Emphysema type: unspecified (3) COPD exacerbation Code(s): J44.1 - CHRONIC OBSTRUCTIVE PULMONARY DISEASE W (ACUTE) EXACERBATION (4) Mass of left lung Code(s): R91.8 - OTHER NONSPECIFIC ABNORMAL FINDING OF LUNG FIELD (5) Abdominal distension Code(s): R14.0 - ABDOMINAL DISTENSION (GASEOUS) (6) GERD (gastroesophageal reflux disease) Code(s): K21.9 - GASTRO-ESOPHAGEAL REFLUX DISEASE WITHOUT ESOPHAGITIS Qualifiers: Esophagitis presence: without esophagitis Qualified Code(s): K21.9 - Gastro -esophageal reflux disease without esophagitis (7) Hypothyroid Code(s): E03.9 - HYPOTHYROIDISM, UNSPECIFIED (8) ASHD (arteriosclerotic heart disease) Code(s): I25.10 - ATHSCL HEART DISEASE OF [place] CORONARY ARTERY W/O ANG PCTRS Assessment/Plan IMP COPD EXACERBATION CONRAD MASS LIKELY MALIGNANT ABDOMINAL DISTENTION ASHD OSAS ON CPAP HTN GERD PULMONARY HTN PLAN CONTINUE IV STEROIDS SAME DOSE INHALED BRONCHODILATORS O2 CT GUIDED BX WHEN RESPIRATORY STATUS IMPROVES PETS SCAN OUTPATIENT CPAP 7cmH2O AT BEDTIME MONITOR ROM LOVELL DR Problem List - Problems (1) Shortness of breath Code(s): R06.02 - SHORTNESS OF BREATH (2) COPD (chronic obstructive pulmonary disease) Code(s): J44.9 - CHRONIC OBSTRUCTIVE PULMONARY DISEASE, UNSPECIFIED Qualifiers: Emphysema type: unspecified (3) COPD exacerbation Code(s): J44.1 - CHRONIC OBSTRUCTIVE PULMONARY DISEASE W (ACUTE) EXACERBATION (4) Mass of left lung Code(s): R91.8 - OTHER NONSPECIFIC ABNORMAL FINDING OF LUNG FIELD (5) Abdominal distension Code(s): R14.0 - ABDOMINAL DISTENSION (GASEOUS) (6) GERD (gastroesophageal reflux disease) Code(s): K21.9 - GASTRO-ESOPHAGEAL REFLUX DISEASE WITHOUT ESOPHAGITIS (7) Hypothyroid Code(s): E03.9 - HYPOTHYROIDISM, UNSPECIFIED (8) ASHD (arteriosclerotic heart disease) Code(s): I25.10 - ATHSCL HEART DISEASE OF [place] CORONARY ARTERY W/O ANG PCTRS
[2017-02-09] MEDS: POLYETHYLENE GLYCOL 3350 119 GM BTL PO SCH (10:59)
--- NOTE | 2017-02-09 11:19 | PN ---
Progress Note, Physician History of Present Illness: Dyspnea on exertion slowly improving, still reports cough and wheezing. - Current Medication List Current Medications: Active Medications Acetaminophen (Tylenol -) 650 mg PO Q6H PRN PRN Reason: FEVER OR PAIN Albuterol Sulfate (Ventolin 0.5% -) 1 amp NEB Q4H PRN PRN Reason: SHORT OF BREATH/WHEEZING Last Admin: 02/07/17 10:45 Dose: 1 amp Albuterol/Ipratropium (Duoneb -) 1 amp NEB TIDR [facility] Last Admin: 02/09/17 06:35 Dose: 1 amp Alprazolam (Xanax -) 0.5 mg PO Q12H PRN PRN Reason: ANXIETY Last Admin: 02/08/17 13:22 Dose: 0.5 mg Atorvastatin Calcium (Lipitor -) 10 mg PO HS [facility] Last Admin: 02/08/17 21:56 Dose: 10 mg Bethanechol Chloride (Urecholine -) 25 mg PO TID [facility] Last Admin: 02/09/17 06:32 Dose: 25 mg Budesonide/Formoterol Fumarate (Symbicort 160/4.5mcg -) 2 puff IH BID [facility] Last Admin: 02/09/17 09:54 Dose: 2 puff Diltiazem HCl (Cardizem Cd -) 120 mg PO DAILY [facility] Last Admin: 02/09/17 09:54 Dose: 120 mg Folic Acid (Folic Acid -) 1 mg PO DAILY [facility] Last Admin: 02/09/17 09:54 Dose: 1 mg Levofloxacin (Levaquin 500 Mg Premixed Ivpb -) 500 mg in 100 mls @ 100 mls/hr IVPB DAILY [facility] Last Admin: 02/09/17 09:54 Dose: 100 mls/hr Methylprednisolone Sodium Succinate (Solu-Medrol -) 40 mg IVPUSH Q8H-IV [facility] Last Admin: 02/09/17 09:54 Dose: 40 mg Montelukast Sodium (Singulair -) 10 mg PO HS [facility] Last Admin: 02/08/17 21:56 Dose: 10 mg Morphine Sulfate (Morphine Sulfate) 1 mg IVPUSH Q4H PRN PRN Reason: PAIN Last Admin: 02/06/17 23:02 Dose: 1 mg Paroxetine HCl (Paxil -) 10 mg PO DAILY [facility] Last Admin: 02/09/17 09:57 Dose: 10 mg Polyethylene Glycol (Miralax (For Daily Use) -) 17 gm PO DAILY [facility] Last Admin: 02/08/17 09:37 Dose: Not Given Spironolactone (Aldactone -) 25 mg PO BID [facility] Last Admin: 02/09/17 09:54 Dose: 25 mg Tamsulosin HCl (Flomax -) 0.4 mg PO DAILY@0830 [facility] Last Admin: 02/09/17 08:52 Dose: 0.4 mg Thyroid ([place] Thyroid -) 60 mg PO DAILY@0700 [facility] Last Admin: 02/09/17 06:32 Dose: 60 mg - Objective Vital Signs: Vital Signs Temperature 98.4 F 02/09/17 05:11 Pulse Rate 84 02/09/17 05:11 Respiratory Rate 20 02/09/17 05:11 Blood Pressure 101/54 02/09/17 05:11 O2 Sat by Pulse Oximetry (%) 97 02/08/17 20:47 Constitutional: Yes: No Distress, Calm Neck: Yes: Supple Cardiovascular: Yes: Regular Rate and Rhythm Respiratory: Yes: Regular, Diminished, On Nasal O2 Gastrointestinal: Yes: Normal Bowel Sounds, Soft, Abdomen, Obese Edema: No Labs: CBC, BMP 02/07/17 05:10 02/07/17 05:10 INR, PTT INR 1.04 (0.82-1.09) 02/04/17 09:53 - ....Imaging EKG: Report Reviewed (Tele: NSR) Problem List - Problems (1) ASHD (arteriosclerotic heart disease) Code(s): I25.10 - ATHSCL HEART DISEASE OF [place] CORONARY ARTERY W/O ANG PCTRS (2) COPD exacerbation Code(s): J44.1 - CHRONIC OBSTRUCTIVE PULMONARY DISEASE W (ACUTE) EXACERBATION (3) Diabetes mellitus Code(s): E11.9 - TYPE 2 DIABETES MELLITUS WITHOUT COMPLICATIONS Qualifiers: Diabetes mellitus type: type 2 Diabetes mellitus complication status: without complication Diabetes mellitus fdc insulin use: without intermodal truck driver use Qualified Code(s): E11.9 - Type 2 diabetes mellitus without complications (4) HTN (hypertension) Code(s): I10 - ESSENTIAL (PRIMARY) HYPERTENSION Qualifiers: Hypertension type: essential hypertension Qualified Code(s): I10 - Essential (primary) hypertension (5) Hypercholesterolemia Code(s): E78.00 - PURE HYPERCHOLESTEROLEMIA, UNSPECIFIED (6) Hypothyroidism Code(s): E03.9 - HYPOTHYROIDISM, UNSPECIFIED Qualifiers: Hypothyroidism type: unspecified Qualified Code(s): E03.9 - Hypothyroidism , unspecified (7) Mass of left lung Code(s): R91.8 - OTHER NONSPECIFIC ABNORMAL FINDING OF LUNG FIELD (8) ANA (obstructive sleep apnea) Code(s): G47.33 - OBSTRUCTIVE SLEEP APNEA (ADULT) (PEDIATRIC) (9) Shortness of breath Code(s): R06.02 - SHORTNESS OF BREATH Assessment/Plan Cardiac testing from office: PVR no significant arterial insufficiency, carotid Doppler mild heterogeneous plaque in the right common carotid artery bifurcation, Nuclear MPI small lexa-apical defect c/w soft tissue attenuation/ apical thinning, LVEF 77% rest and 67% stress 1. AE COPD exacerbation 2. CONRAD mass, possible malignancy - await biopsy 3. CAD - non-obstructive, angina pectoris 4. HTN/HCVD 5. Diastolic LV dysfunction 6. Hypercholesterolemia 7. NIDDM 8. Hypothyroidism 9. PVD 10. Anemia 11. Degenerative disc disease 12. OSAS on cpap PLAN: 1. Continue Cardizem CD 120 qd, Atorvastatin 10 qhs, Aldactone 25 bid 2. IV steroid, inhaled bronchodilator, Singulair 10 qhs, empiric antibiotic, O2 as needed, cpap 7 cm H2O at bedtime 3. Proceed with CT guided biopsy and outpatient PET scan once respiratory status improves
--- NOTE | 2017-02-09 12:14 | EKG ---
Test Reason : Blood Pressure : / mmHG Vent. Rate : 087 BPM Atrial Rate : 087 BPM P-R Int : 150 ms QRS Dur : 090 ms QT Int : 374 ms P-R-T Axes : 061 074 006 degrees QTc Int : 450 ms NORMAL SINUS RHYTHM NONSPECIFIC T WAVE ABNORMALITY ABNORMAL ECG WHEN COMPARED WITH ECG OF 16-FEB-2012 18:49, QT HAS SHORTENED Confirmed by RACHEL MUNOZ, ALBERTO ([id number]) on 02/09/2017 12:14:04 PM Referred By: Confirmed By:ALBERTO RAMOS MD
[2017-02-09] MEDS: ATORVASTATIN CA 10 MG TABLET (FP) PO SCH (21:37)
[2017-02-09] MEDS: MONTELUKAST NA 10 MG TABLET PO SCH (21:37)
[2017-02-10] MEDS: methylPREDNISolone NA SUCC 40 MG/1 ML VIAL IVPUSH SCH ×3 (02:40→18:00)
[2017-02-10] MEDS: ALPRAZolam 0.25 MG TABLET PO PRN ×2 (04:24→22:12)
[2017-02-10] MEDS ORDERED: PT OWN MED DRAWER 7, Y5N ONE ×2 (06:12→09:39)
[2017-02-10] MEDS: THYROID 60 MG TABLET PO SCH (06:13)
[2017-02-10] MEDS: BETHANECHOL CHLORIDE 25 MG TABLET PO SCH ×3 (06:13→22:12)
[2017-02-10] MEDS: ALBUTEROL SO4 2.5/IPRATROPIUM 0.5 INH SOL 3 ML VIAL.NEB. NEB SCH ×3 (06:57→22:10)
--- NOTE | 2017-02-10 09:12 | PN ---
Progress Note, Physician Chief Complaint: Feels better Less SOB History of Present Illness: Patient was seen and examined. Awake and alert. Chart was reviewed Denies chest pain, less SOB and no palpitations - Current Medication List Current Medications: Active Medications Acetaminophen (Tylenol -) 650 mg PO Q6H PRN PRN Reason: FEVER OR PAIN Albuterol Sulfate (Ventolin 0.5% -) 1 amp NEB Q4H PRN PRN Reason: SHORT OF BREATH/WHEEZING Last Admin: 02/07/17 10:45 Dose: 1 amp Albuterol/Ipratropium (Duoneb -) 1 amp NEB TIDR [facility] Last Admin: 02/10/17 06:57 Dose: 1 amp Alprazolam (Xanax -) 0.5 mg PO Q12H PRN PRN Reason: ANXIETY Last Admin: 02/10/17 04:24 Dose: 0.5 mg Atorvastatin Calcium (Lipitor -) 10 mg PO HS [facility] Last Admin: 02/09/17 21:37 Dose: 10 mg Bethanechol Chloride (Urecholine -) 25 mg PO TID [facility] Last Admin: 02/10/17 06:13 Dose: 25 mg Budesonide/Formoterol Fumarate (Symbicort 160/4.5mcg -) 2 puff IH BID [facility] Last Admin: 02/09/17 21:37 Dose: 2 puff Diltiazem HCl (Cardizem Cd -) 120 mg PO DAILY [facility] Last Admin: 02/09/17 09:54 Dose: 120 mg Folic Acid (Folic Acid -) 1 mg PO DAILY [facility] Last Admin: 02/09/17 09:54 Dose: 1 mg Levofloxacin (Levaquin 500 Mg Premixed Ivpb -) 500 mg in 100 mls @ 100 mls/hr IVPB DAILY [facility] Last Admin: 02/09/17 09:54 Dose: 100 mls/hr Methylprednisolone Sodium Succinate (Solu-Medrol -) 40 mg IVPUSH Q8H-IV [facility] Last Admin: 02/10/17 02:40 Dose: 40 mg Montelukast Sodium (Singulair -) 10 mg PO HS [facility] Last Admin: 02/09/17 21:37 Dose: 10 mg Morphine Sulfate (Morphine Sulfate) 1 mg IVPUSH Q4H PRN PRN Reason: PAIN Last Admin: 02/06/17 23:02 Dose: 1 mg Paroxetine HCl (Paxil -) 10 mg PO DAILY [facility] Last Admin: 02/09/17 09:57 Dose: 10 mg Polyethylene Glycol (Miralax (For Daily Use) -) 17 gm PO DAILY [facility] Last Admin: 02/09/17 10:59 Dose: 17 gm Spironolactone (Aldactone -) 25 mg PO BID [facility] Last Admin: 02/09/17 21:37 Dose: 25 mg Tamsulosin HCl (Flomax -) 0.4 mg PO DAILY@0830 [facility] Last Admin: 02/09/17 08:52 Dose: 0.4 mg Thyroid ([place] Thyroid -) 60 mg PO DAILY@0700 [facility] Last Admin: 02/10/17 06:13 Dose: 60 mg - Objective Vital Signs: Vital Signs Temperature 98.6 F 02/10/17 06:00 Pulse Rate 68 02/10/17 06:00 Respiratory Rate 18 02/10/17 08:03 Blood Pressure 108/59 02/10/17 06:00 O2 Sat by Pulse Oximetry (%) 97 02/10/17 08:03 Neck: Yes: Supple Cardiovascular: Yes: Regular Rate and Rhythm, S1, S2 Respiratory: Yes: Diminished Gastrointestinal: Yes: Normal Bowel Sounds, Soft. No: Tenderness Edema: No Additional Findings/Remarks: - Review of Systems Constitutional: denies: Chills, Fever Cardiovascular: reports: Shortness of Breath. denies: Chest Pain, Palpitations Respiratory: reports: Cough, SOB. denies: Hemoptysis, Orthopnea Gastrointestinal: denies: Bloating, Constipation. denies: Abdominal Pain, Diarrhea, Melena, Nausea, Rectal Bleeding, Vomiting Genitourinary: denies: Dysuria Neurological: denies: Dizziness, Headache, Seizure, Syncope, Weakness Endocrine: denies: Intolerance to Cold, Intolerance to Heat Labs: CBC, BMP 02/07/17 05:10 02/07/17 05:10 INR, PTT INR 1.04 (0.82-1.09) 02/04/17 09:53 Problem List - Problems (1) HTN (hypertension) Code(s): I10 - ESSENTIAL (PRIMARY) HYPERTENSION Qualifiers: Hypertension type: essential hypertension Qualified Code(s): I10 - Essential (primary) hypertension (2) Hypercholesterolemia Code(s): E78.00 - PURE HYPERCHOLESTEROLEMIA, UNSPECIFIED (3) Diabetes mellitus Code(s): E11.9 - TYPE 2 DIABETES MELLITUS WITHOUT COMPLICATIONS Qualifiers: Diabetes mellitus type: type 2 Diabetes mellitus complication status: without complication Diabetes mellitus nursing home insulin use: without assistant terminal manager use Qualified Code(s): E11.9 - Type 2 diabetes mellitus without complications (4) ANA (obstructive sleep apnea) Code(s): G47.33 - OBSTRUCTIVE SLEEP APNEA (ADULT) (PEDIATRIC) (5) ASHD (arteriosclerotic heart disease) Code(s): I25.10 - ATHSCL HEART DISEASE OF [place] CORONARY ARTERY W/O ANG PCTRS (6) COPD (chronic obstructive pulmonary disease) Code(s): J44.9 - CHRONIC OBSTRUCTIVE PULMONARY DISEASE, UNSPECIFIED Qualifiers: Emphysema type: unspecified (7) COPD exacerbation Code(s): J44.1 - CHRONIC OBSTRUCTIVE PULMONARY DISEASE W (ACUTE) EXACERBATION (8) GERD (gastroesophageal reflux disease) Code(s): K21.9 - GASTRO-ESOPHAGEAL REFLUX DISEASE WITHOUT ESOPHAGITIS Qualifiers: Esophagitis presence: without esophagitis Qualified Code(s): K21.9 - Gastro -esophageal reflux disease without esophagitis (9) Hypothyroidism Code(s): E03.9 - HYPOTHYROIDISM, UNSPECIFIED Qualifiers: Hypothyroidism type: unspecified Qualified Code(s): E03.9 - Hypothyroidism , unspecified (10) Mass of left lung Code(s): R91.8 - OTHER NONSPECIFIC ABNORMAL FINDING OF LUNG FIELD (11) Shortness of breath Code(s): R06.02 - SHORTNESS OF BREATH Assessment/Plan 1. Dyspnea with pulmonary nodule, possible malignancy and COPD exacerbation- await biopsy tentatively next week 2. CAD - non-obstructive, angina pectoris 3. HTN/HCVD 4. Diastolic LV dysfunction 5. Hypercholesterolemia 6. NIDDM 7. Hypothyroidism 8. PVD 9. Anemia 10. Degenerative disc disease 11. OSAS PLAN: 1. Proceed with CT guided biopsy and further plans are to follow 2. Continue Cardizem CD 3. Continue Atorvastatin 4. Continue Spironolactone 5. PET scan as outpatient for further malignancy work up. 6. Steroid taper and inhaled bronchodilator 7. Empiric antibiotic coverage Further plans are to follow Wilton Lubin MD
--- NOTE | 2017-02-10 09:25 | PN ---
Progress Note, Physician History of Present Illness: C/O CONSTIPATION BREATHING IS BETTER - Current Medication List Current Medications: Active Medications Acetaminophen (Tylenol -) 650 mg PO Q6H PRN PRN Reason: FEVER OR PAIN Albuterol Sulfate (Ventolin 0.5% -) 1 amp NEB Q4H PRN PRN Reason: SHORT OF BREATH/WHEEZING Last Admin: 02/07/17 10:45 Dose: 1 amp Albuterol/Ipratropium (Duoneb -) 1 amp NEB TIDR [facility] Last Admin: 02/10/17 06:57 Dose: 1 amp Alprazolam (Xanax -) 0.5 mg PO Q12H PRN PRN Reason: ANXIETY Last Admin: 02/10/17 04:24 Dose: 0.5 mg Atorvastatin Calcium (Lipitor -) 10 mg PO HS [facility] Last Admin: 02/09/17 21:37 Dose: 10 mg Bethanechol Chloride (Urecholine -) 25 mg PO TID [facility] Last Admin: 02/10/17 06:13 Dose: 25 mg Budesonide/Formoterol Fumarate (Symbicort 160/4.5mcg -) 2 puff IH BID [facility] Last Admin: 02/09/17 21:37 Dose: 2 puff Diltiazem HCl (Cardizem Cd -) 120 mg PO DAILY [facility] Last Admin: 02/09/17 09:54 Dose: 120 mg Folic Acid (Folic Acid -) 1 mg PO DAILY [facility] Last Admin: 02/09/17 09:54 Dose: 1 mg Levofloxacin (Levaquin 500 Mg Premixed Ivpb -) 500 mg in 100 mls @ 100 mls/hr IVPB DAILY [facility] Last Admin: 02/09/17 09:54 Dose: 100 mls/hr Methylprednisolone Sodium Succinate (Solu-Medrol -) 40 mg IVPUSH Q8H-IV [facility] Last Admin: 02/10/17 02:40 Dose: 40 mg Montelukast Sodium (Singulair -) 10 mg PO HS [facility] Last Admin: 02/09/17 21:37 Dose: 10 mg Morphine Sulfate (Morphine Sulfate) 1 mg IVPUSH Q4H PRN PRN Reason: PAIN Last Admin: 02/06/17 23:02 Dose: 1 mg Paroxetine HCl (Paxil -) 10 mg PO DAILY [facility] Last Admin: 02/09/17 09:57 Dose: 10 mg Polyethylene Glycol (Miralax (For Daily Use) -) 17 gm PO DAILY [facility] Last Admin: 02/09/17 10:59 Dose: 17 gm Spironolactone (Aldactone -) 25 mg PO BID [facility] Last Admin: 02/09/17 21:37 Dose: 25 mg Tamsulosin HCl (Flomax -) 0.4 mg PO DAILY@0830 [facility] Last Admin: 02/09/17 08:52 Dose: 0.4 mg Thyroid ([place] Thyroid -) 60 mg PO DAILY@0700 [facility] Last Admin: 02/10/17 06:13 Dose: 60 mg - Objective Vital Signs: Vital Signs Temperature 98.6 F 02/10/17 06:00 Pulse Rate 68 02/10/17 06:00 Respiratory Rate 18 02/10/17 08:03 Blood Pressure 108/59 02/10/17 06:00 O2 Sat by Pulse Oximetry (%) 97 02/10/17 08:03 Cardiovascular: Yes: Regular Rate and Rhythm Respiratory: Yes: Rhonchi Gastrointestinal: Yes: Normal Bowel Sounds, Soft. No: Tenderness Labs: CBC, BMP 02/07/17 05:10 02/07/17 05:10 INR, PTT INR 1.04 (0.82-1.09) 02/04/17 09:53 Problem List - Problems (1) Constipation Assessment/Plan: DULCOLOX GIVEN--WITH GOOD RESULTS MIRALAX Code(s): K59.00 - CONSTIPATION, UNSPECIFIED (2) COPD (chronic obstructive pulmonary disease) Assessment/Plan: STEROIDS NEBS Code(s): J44.9 - CHRONIC OBSTRUCTIVE PULMONARY DISEASE, UNSPECIFIED Qualifiers: Emphysema type: unspecified (3) Hypothyroid Code(s): E03.9 - HYPOTHYROIDISM, UNSPECIFIED (4) Mass of left lung Assessment/Plan: BIOPSY WHEN IMPROVED PET SCAN OUTPATIENT Code(s): R91.8 - OTHER NONSPECIFIC ABNORMAL FINDING OF LUNG FIELD (5) Urinary retention Assessment/Plan: SHIRA PHELAN TRIAL OF VOIDING--NO ISSUES AT THIS TIME Code(s): R33.9 - RETENTION OF URINE, UNSPECIFIED
[2017-02-10] MEDS: SPIRONOLACTONE 25 MG TABLET (FP) PO SCH ×2 (09:43→22:12)
[2017-02-10] MEDS: PARoxetine HCL 10 MG TABLET (FP) PO SCH (09:43)
[2017-02-10] MEDS: LEVOFLOXACIN 500 MG IVPB 500 MG/100 ML BAG IVPB SCH (09:43)
[2017-02-10] MEDS: FOLIC ACID 1 MG TABLET (FP) PO SCH (09:43)
[2017-02-10] MEDS: TAMSULOSIN HCL 0.4 MG CAP.ER.24H (FP) PO SCH (09:43)
[2017-02-10] MEDS: BUDESONIDE/FORMETEROL FUMARATE 160/4.5 mcg INHALER IH SCH ×2 (09:44→22:13)
[2017-02-10] MEDS: POLYETHYLENE GLYCOL 3350 119 GM BTL PO SCH (09:49)
--- NOTE | 2017-02-10 10:01 | PN ---
Progress Note, Physician History of Present Illness: pulmonary alert,feeling better,less dyspneic,less cough - Current Medication List Current Medications: Active Medications Acetaminophen (Tylenol -) 650 mg PO Q6H PRN PRN Reason: FEVER OR PAIN Albuterol Sulfate (Ventolin 0.5% -) 1 amp NEB Q4H PRN PRN Reason: SHORT OF BREATH/WHEEZING Last Admin: 02/07/17 10:45 Dose: 1 amp Albuterol/Ipratropium (Duoneb -) 1 amp NEB TIDR [facility] Last Admin: 02/10/17 06:57 Dose: 1 amp Alprazolam (Xanax -) 0.5 mg PO Q12H PRN PRN Reason: ANXIETY Last Admin: 02/10/17 04:24 Dose: 0.5 mg Atorvastatin Calcium (Lipitor -) 10 mg PO HS [facility] Last Admin: 02/09/17 21:37 Dose: 10 mg Bethanechol Chloride (Urecholine -) 25 mg PO TID [facility] Last Admin: 02/10/17 06:13 Dose: 25 mg Budesonide/Formoterol Fumarate (Symbicort 160/4.5mcg -) 2 puff IH BID [facility] Last Admin: 02/10/17 09:44 Dose: 2 puff Diltiazem HCl (Cardizem Cd -) 120 mg PO DAILY [facility] Last Admin: 02/10/17 09:43 Dose: 120 mg Folic Acid (Folic Acid -) 1 mg PO DAILY [facility] Last Admin: 02/10/17 09:43 Dose: 1 mg Levofloxacin (Levaquin 500 Mg Premixed Ivpb -) 500 mg in 100 mls @ 100 mls/hr IVPB DAILY [facility] Last Admin: 02/10/17 09:43 Dose: 100 mls/hr Methylprednisolone Sodium Succinate (Solu-Medrol -) 40 mg IVPUSH Q8H-IV [facility] Last Admin: 02/10/17 09:43 Dose: 40 mg Montelukast Sodium (Singulair -) 10 mg PO HS [facility] Last Admin: 02/09/17 21:37 Dose: 10 mg Morphine Sulfate (Morphine Sulfate) 1 mg IVPUSH Q4H PRN PRN Reason: PAIN Last Admin: 02/06/17 23:02 Dose: 1 mg Paroxetine HCl (Paxil -) 10 mg PO DAILY [facility] Last Admin: 02/10/17 09:43 Dose: 10 mg Polyethylene Glycol (Miralax (For Daily Use) -) 17 gm PO DAILY [facility] Last Admin: 02/10/17 09:49 Dose: Not Given Spironolactone (Aldactone -) 25 mg PO BID [facility] Last Admin: 02/10/17 09:43 Dose: 25 mg Tamsulosin HCl (Flomax -) 0.4 mg PO DAILY@0830 [facility] Last Admin: 02/10/17 09:43 Dose: 0.4 mg Thyroid ([place] Thyroid -) 60 mg PO DAILY@0700 [facility] Last Admin: 02/10/17 06:13 Dose: 60 mg - Objective Vital Signs: Vital Signs Temperature 98.6 F 02/10/17 06:00 Pulse Rate 68 02/10/17 06:00 Respiratory Rate 18 02/10/17 08:03 Blood Pressure 108/59 02/10/17 06:00 O2 Sat by Pulse Oximetry (%) 97 02/10/17 08:03 Constitutional: Yes: Well Nourished, Calm Eyes: Yes: WNL HENT: Yes: WNL Neck: Yes: Supple Cardiovascular: Yes: Regular Rate and Rhythm, S1, S2 Respiratory: Yes: Rhonchi (scattered hanny wheezes and rhonchi), Wheezes Gastrointestinal: Yes: Normal Bowel Sounds, Soft Extremities: Yes: WNL Edema: No Labs: CBC, BMP Problem List - Problems (1) Shortness of breath Code(s): R06.02 - SHORTNESS OF BREATH (2) COPD (chronic obstructive pulmonary disease) Code(s): J44.9 - CHRONIC OBSTRUCTIVE PULMONARY DISEASE, UNSPECIFIED Qualifiers: Emphysema type: unspecified (3) COPD exacerbation Code(s): J44.1 - CHRONIC OBSTRUCTIVE PULMONARY DISEASE W (ACUTE) EXACERBATION (4) Mass of left lung Code(s): R91.8 - OTHER NONSPECIFIC ABNORMAL FINDING OF LUNG FIELD (5) Abdominal distension Code(s): R14.0 - ABDOMINAL DISTENSION (GASEOUS) (6) GERD (gastroesophageal reflux disease) Code(s): K21.9 - GASTRO-ESOPHAGEAL REFLUX DISEASE WITHOUT ESOPHAGITIS Qualifiers: Esophagitis presence: without esophagitis Qualified Code(s): K21.9 - Gastro -esophageal reflux disease without esophagitis (7) Hypothyroid Code(s): E03.9 - HYPOTHYROIDISM, UNSPECIFIED (8) ASHD (arteriosclerotic heart disease) Code(s): I25.10 - ATHSCL HEART DISEASE OF [place] CORONARY ARTERY W/O ANG PCTRS Assessment/Plan IMP COPD EXACERBATION CONRAD MASS LIKELY MALIGNANT ABDOMINAL DISTENTION ASHD OSAS ON CPAP HTN GERD PULMONARY HTN PLAN CONTINUE IV STEROIDS SAME DOSE INHALED BRONCHODILATORS O2 CT GUIDED BX POSSIBLY IN AM PETS SCAN OUTPATIENT CPAP 7cmH2O AT BEDTIME MONITOR LYTES,CPK ENT EVALUATION DR DENISE Problem List - Problems (1) Shortness of breath Code(s): R06.02 - SHORTNESS OF BREATH (2) COPD (chronic obstructive pulmonary disease) Code(s): J44.9 - CHRONIC OBSTRUCTIVE PULMONARY DISEASE, UNSPECIFIED Qualifiers: Emphysema type: unspecified (3) COPD exacerbation Code(s): J44.1 - CHRONIC OBSTRUCTIVE PULMONARY DISEASE W (ACUTE) EXACERBATION (4) Mass of left lung Code(s): R91.8 - OTHER NONSPECIFIC ABNORMAL FINDING OF LUNG FIELD (5) Abdominal distension Code(s): R14.0 - ABDOMINAL DISTENSION (GASEOUS) (6) GERD (gastroesophageal reflux disease) Code(s): K21.9 - GASTRO-ESOPHAGEAL REFLUX DISEASE WITHOUT ESOPHAGITIS (7) Hypothyroid Code(s): E03.9 - HYPOTHYROIDISM, UNSPECIFIED (8) ASHD (arteriosclerotic heart disease) Code(s): I25.10 - ATHSCL HEART DISEASE OF [place] CORONARY ARTERY W/O ANG PCTRS
[2017-02-10] MEDS: MONTELUKAST NA 10 MG TABLET PO SCH (22:12)
[2017-02-10] MEDS: ATORVASTATIN CA 10 MG TABLET (FP) PO SCH (22:12)
[2017-02-11] MEDS: methylPREDNISolone NA SUCC 40 MG/1 ML VIAL IVPUSH SCH ×3 (01:33→17:00)
[2017-02-11] MEDS ORDERED: PT OWN MED DRAWER 7, Y5N ONE ×2 (06:22→09:41)
[2017-02-11] MEDS: BETHANECHOL CHLORIDE 25 MG TABLET PO SCH ×3 (06:25→21:57)
[2017-02-11] MEDS: THYROID 60 MG TABLET PO SCH (06:25)
[2017-02-11] MEDS: ALBUTEROL SO4 2.5/IPRATROPIUM 0.5 INH SOL 3 ML VIAL.NEB. NEB SCH ×3 (06:40→22:35)
--- NOTE | 2017-02-11 08:44 | PN ---
Progress Note, Physician History of Present Illness: C/O CONSTIPATION BREATHING IS BETTER - Current Medication List Current Medications: Active Medications Acetaminophen (Tylenol -) 650 mg PO Q6H PRN PRN Reason: FEVER OR PAIN Albuterol Sulfate (Ventolin 0.5% -) 1 amp NEB Q4H PRN PRN Reason: SHORT OF BREATH/WHEEZING Last Admin: 02/07/17 10:45 Dose: 1 amp Albuterol/Ipratropium (Duoneb -) 1 amp NEB TIDR [facility] Last Admin: 02/11/17 06:40 Dose: 1 amp Atorvastatin Calcium (Lipitor -) 10 mg PO HS [facility] Last Admin: 02/10/17 22:12 Dose: 10 mg Bethanechol Chloride (Urecholine -) 25 mg PO TID [facility] Last Admin: 02/11/17 06:25 Dose: 25 mg Budesonide/Formoterol Fumarate (Symbicort 160/4.5mcg -) 2 puff IH BID [facility] Last Admin: 02/10/17 22:13 Dose: 2 puff Diltiazem HCl (Cardizem Cd -) 120 mg PO DAILY [facility] Last Admin: 02/10/17 09:43 Dose: 120 mg Folic Acid (Folic Acid -) 1 mg PO DAILY [facility] Last Admin: 02/10/17 09:43 Dose: 1 mg Levofloxacin (Levaquin 500 Mg Premixed Ivpb -) 500 mg in 100 mls @ 100 mls/hr IVPB DAILY [facility] Last Admin: 02/10/17 09:43 Dose: 100 mls/hr Methylprednisolone Sodium Succinate (Solu-Medrol -) 40 mg IVPUSH Q8H-IV [facility] Last Admin: 02/11/17 01:33 Dose: 40 mg Montelukast Sodium (Singulair -) 10 mg PO HS [facility] Last Admin: 02/10/17 22:12 Dose: 10 mg Paroxetine HCl (Paxil -) 10 mg PO DAILY [facility] Last Admin: 02/10/17 09:43 Dose: 10 mg Polyethylene Glycol (Miralax (For Daily Use) -) 17 gm PO DAILY [facility] Last Admin: 02/10/17 09:49 Dose: Not Given Spironolactone (Aldactone -) 25 mg PO BID [facility] Last Admin: 02/10/17 22:12 Dose: 25 mg Tamsulosin HCl (Flomax -) 0.4 mg PO DAILY@0830 [facility] Last Admin: 02/10/17 09:43 Dose: 0.4 mg Thyroid ([place] Thyroid -) 60 mg PO DAILY@0700 [facility] Last Admin: 02/11/17 06:25 Dose: 60 mg - Objective Vital Signs: Vital Signs Temperature 97.9 F 02/11/17 06:18 Pulse Rate 85 02/11/17 06:18 Respiratory Rate 18 02/11/17 06:18 Blood Pressure 114/76 02/11/17 06:18 O2 Sat by Pulse Oximetry (%) 97 02/10/17 21:00 Cardiovascular: Yes: Regular Rate and Rhythm Respiratory: Yes: Rhonchi Gastrointestinal: Yes: Normal Bowel Sounds, Soft Labs: CBC, BMP 02/07/17 05:10 02/07/17 05:10 INR, PTT INR 1.04 (0.82-1.09) 02/04/17 09:53 Problem List - Problems (1) Constipation Assessment/Plan: DULCOLOX GIVEN--WITH GOOD RESULTS MIRALAX Code(s): K59.00 - CONSTIPATION, UNSPECIFIED (2) COPD (chronic obstructive pulmonary disease) Assessment/Plan: STEROIDS NEBS Code(s): J44.9 - CHRONIC OBSTRUCTIVE PULMONARY DISEASE, UNSPECIFIED Qualifiers: Emphysema type: unspecified (3) Hypothyroid Assessment/Plan: TSH--0.8 Code(s): E03.9 - HYPOTHYROIDISM, UNSPECIFIED (4) Mass of left lung Assessment/Plan: BIOPSY WHEN IMPROVED PET SCAN OUTPATIENT Code(s): R91.8 - OTHER NONSPECIFIC ABNORMAL FINDING OF LUNG FIELD (5) Urinary retention Assessment/Plan: SHIRA PHELAN TRIAL OF VOIDING--NO ISSUES AT THIS TIME Code(s): R33.9 - RETENTION OF URINE, UNSPECIFIED
--- NOTE | 2017-02-11 09:28 | PN ---
Progress Note, Physician Chief Complaint: Feels better Less SOB Complains of cough and bringing up sputum History of Present Illness: Patient was seen and examined. Awake and alert. Chart was reviewed Denies chest pain, less SOB and no palpitations As outlined. Await biopsy on Mon if clinically improved - Current Medication List Current Medications: Active Medications Acetaminophen (Tylenol -) 650 mg PO Q6H PRN PRN Reason: FEVER OR PAIN Albuterol Sulfate (Ventolin 0.5% -) 1 amp NEB Q4H PRN PRN Reason: SHORT OF BREATH/WHEEZING Last Admin: 02/07/17 10:45 Dose: 1 amp Albuterol/Ipratropium (Duoneb -) 1 amp NEB TIDR [facility] Last Admin: 02/11/17 06:40 Dose: 1 amp Atorvastatin Calcium (Lipitor -) 10 mg PO HS [facility] Last Admin: 02/10/17 22:12 Dose: 10 mg Bethanechol Chloride (Urecholine -) 25 mg PO TID [facility] Last Admin: 02/11/17 06:25 Dose: 25 mg Budesonide/Formoterol Fumarate (Symbicort 160/4.5mcg -) 2 puff IH BID [facility] Last Admin: 02/10/17 22:13 Dose: 2 puff Diltiazem HCl (Cardizem Cd -) 120 mg PO DAILY [facility] Last Admin: 02/10/17 09:43 Dose: 120 mg Folic Acid (Folic Acid -) 1 mg PO DAILY [facility] Last Admin: 02/10/17 09:43 Dose: 1 mg Levofloxacin (Levaquin 500 Mg Premixed Ivpb -) 500 mg in 100 mls @ 100 mls/hr IVPB DAILY [facility] Last Admin: 02/10/17 09:43 Dose: 100 mls/hr Methylprednisolone Sodium Succinate (Solu-Medrol -) 40 mg IVPUSH Q8H-IV [facility] Last Admin: 02/11/17 01:33 Dose: 40 mg Montelukast Sodium (Singulair -) 10 mg PO HS [facility] Last Admin: 02/10/17 22:12 Dose: 10 mg Paroxetine HCl (Paxil -) 10 mg PO DAILY [facility] Last Admin: 02/10/17 09:43 Dose: 10 mg Polyethylene Glycol (Miralax (For Daily Use) -) 17 gm PO DAILY [facility] Last Admin: 02/10/17 09:49 Dose: Not Given Spironolactone (Aldactone -) 25 mg PO BID [facility] Last Admin: 02/10/17 22:12 Dose: 25 mg Tamsulosin HCl (Flomax -) 0.4 mg PO DAILY@0830 [facility] Last Admin: 02/10/17 09:43 Dose: 0.4 mg Thyroid ([place] Thyroid -) 60 mg PO DAILY@0700 [facility] Last Admin: 02/11/17 06:25 Dose: 60 mg - Objective Vital Signs: Vital Signs Temperature 97.9 F 02/11/17 06:18 Pulse Rate 85 02/11/17 06:18 Respiratory Rate 18 02/11/17 06:18 Blood Pressure 114/76 02/11/17 06:18 O2 Sat by Pulse Oximetry (%) 97 02/10/17 21:00 Neck: Yes: Supple Cardiovascular: Yes: Regular Rate and Rhythm, S1, S2 Respiratory: Yes: Diminished Gastrointestinal: Yes: Normal Bowel Sounds, Soft. No: Tenderness Edema: No Additional Findings/Remarks: - Review of Systems Constitutional: denies: Chills, Fever Cardiovascular: reports: Shortness of Breath. denies: Chest Pain, Palpitations Respiratory: reports: Cough, SOB. denies: Hemoptysis, Orthopnea Gastrointestinal: denies: Bloating, Constipation. denies: Abdominal Pain, Diarrhea, Melena, Nausea, Rectal Bleeding, Vomiting Genitourinary: denies: Dysuria Neurological: denies: Dizziness, Headache, Seizure, Syncope, Weakness Endocrine: denies: Intolerance to Cold, Intolerance to Heat Problem List - Problems (1) HTN (hypertension) Code(s): I10 - ESSENTIAL (PRIMARY) HYPERTENSION Qualifiers: Hypertension type: essential hypertension Qualified Code(s): I10 - Essential (primary) hypertension (2) Hypercholesterolemia Code(s): E78.00 - PURE HYPERCHOLESTEROLEMIA, UNSPECIFIED (3) Diabetes mellitus Code(s): E11.9 - TYPE 2 DIABETES MELLITUS WITHOUT COMPLICATIONS Qualifiers: Diabetes mellitus type: type 2 Diabetes mellitus complication status: without complication Diabetes mellitus care home insulin use: without superintendent terminal use Qualified Code(s): E11.9 - Type 2 diabetes mellitus without complications (4) ANA (obstructive sleep apnea) Code(s): G47.33 - OBSTRUCTIVE SLEEP APNEA (ADULT) (PEDIATRIC) (5) ASHD (arteriosclerotic heart disease) Code(s): I25.10 - ATHSCL HEART DISEASE OF [place] CORONARY ARTERY W/O ANG PCTRS (6) COPD (chronic obstructive pulmonary disease) Code(s): J44.9 - CHRONIC OBSTRUCTIVE PULMONARY DISEASE, UNSPECIFIED Qualifiers: Emphysema type: unspecified (7) COPD exacerbation Code(s): J44.1 - CHRONIC OBSTRUCTIVE PULMONARY DISEASE W (ACUTE) EXACERBATION (8) GERD (gastroesophageal reflux disease) Code(s): K21.9 - GASTRO-ESOPHAGEAL REFLUX DISEASE WITHOUT ESOPHAGITIS Qualifiers: Esophagitis presence: without esophagitis Qualified Code(s): K21.9 - Gastro -esophageal reflux disease without esophagitis (9) Hypothyroidism Code(s): E03.9 - HYPOTHYROIDISM, UNSPECIFIED Qualifiers: Hypothyroidism type: unspecified Qualified Code(s): E03.9 - Hypothyroidism , unspecified (10) Mass of left lung Code(s): R91.8 - OTHER NONSPECIFIC ABNORMAL FINDING OF LUNG FIELD (11) Shortness of breath Code(s): R06.02 - SHORTNESS OF BREATH Assessment/Plan 1. Dyspnea with pulmonary nodule, possible malignancy and COPD exacerbation- await biopsy tentatively next week 2. CAD - non-obstructive, angina pectoris 3. HTN/HCVD 4. Diastolic LV dysfunction 5. Hypercholesterolemia 6. NIDDM 7. Hypothyroidism 8. PVD 9. Anemia 10. Degenerative disc disease 11. OSAS PLAN: 1. Proceed with CT guided biopsy and further plans are to follow 2. Continue Cardizem CD 3. Continue Atorvastatin 4. Continue Spironolactone 5. PET scan as outpatient for further malignancy work up. 6. Steroid taper and inhaled bronchodilator 7. Empiric antibiotic coverage Further plans are to follow. Clinically improving Wilton Lubin MD
[2017-02-11] MEDS: LEVOFLOXACIN 500 MG IVPB 500 MG/100 ML BAG IVPB SCH (09:55)
[2017-02-11] MEDS: BUDESONIDE/FORMETEROL FUMARATE 160/4.5 mcg INHALER IH SCH ×2 (10:01→21:57)
[2017-02-11] MEDS: SPIRONOLACTONE 25 MG TABLET (FP) PO SCH ×2 (10:01→21:57)
[2017-02-11] MEDS: PARoxetine HCL 10 MG TABLET (FP) PO SCH (10:01)
[2017-02-11] MEDS: POLYETHYLENE GLYCOL 3350 119 GM BTL PO SCH (10:01)
[2017-02-11] MEDS: FOLIC ACID 1 MG TABLET (FP) PO SCH (10:01)
[2017-02-11] MEDS: TAMSULOSIN HCL 0.4 MG CAP.ER.24H (FP) PO SCH (10:01)
--- NOTE | 2017-02-11 10:36 | PN ---
Progress Note, Physician History of Present Illness: pulmonary alert,feeling better,less dyspneic - Current Medication List Current Medications: Active Medications Acetaminophen (Tylenol -) 650 mg PO Q6H PRN PRN Reason: FEVER OR PAIN Albuterol Sulfate (Ventolin 0.5% -) 1 amp NEB Q4H PRN PRN Reason: SHORT OF BREATH/WHEEZING Last Admin: 02/07/17 10:45 Dose: 1 amp Albuterol/Ipratropium (Duoneb -) 1 amp NEB TIDR [facility] Last Admin: 02/11/17 06:40 Dose: 1 amp Atorvastatin Calcium (Lipitor -) 10 mg PO HS [facility] Last Admin: 02/10/17 22:12 Dose: 10 mg Bethanechol Chloride (Urecholine -) 25 mg PO TID [facility] Last Admin: 02/11/17 06:25 Dose: 25 mg Budesonide/Formoterol Fumarate (Symbicort 160/4.5mcg -) 2 puff IH BID [facility] Last Admin: 02/11/17 10:01 Dose: 2 puff Diltiazem HCl (Cardizem Cd -) 120 mg PO DAILY [facility] Last Admin: 02/11/17 10:01 Dose: 120 mg Folic Acid (Folic Acid -) 1 mg PO DAILY [facility] Last Admin: 02/11/17 10:01 Dose: 1 mg Levofloxacin (Levaquin 500 Mg Premixed Ivpb -) 500 mg in 100 mls @ 100 mls/hr IVPB DAILY [facility] Last Admin: 02/11/17 09:55 Dose: 100 mls/hr Methylprednisolone Sodium Succinate (Solu-Medrol -) 40 mg IVPUSH Q8H-IV [facility] Last Admin: 02/11/17 09:59 Dose: 40 mg Montelukast Sodium (Singulair -) 10 mg PO HS [facility] Last Admin: 02/10/17 22:12 Dose: 10 mg Paroxetine HCl (Paxil -) 10 mg PO DAILY [facility] Last Admin: 02/11/17 10:01 Dose: 10 mg Polyethylene Glycol (Miralax (For Daily Use) -) 17 gm PO DAILY [facility] Last Admin: 02/11/17 10:01 Dose: Not Given Spironolactone (Aldactone -) 25 mg PO BID [facility] Last Admin: 02/11/17 10:01 Dose: 25 mg Tamsulosin HCl (Flomax -) 0.4 mg PO DAILY@0830 [facility] Last Admin: 02/11/17 10:01 Dose: 0.4 mg Thyroid ([place] Thyroid -) 60 mg PO DAILY@0700 [facility] Last Admin: 02/11/17 06:25 Dose: 60 mg - Objective Vital Signs: Vital Signs Temperature 97.9 F 02/11/17 06:18 Pulse Rate 85 02/11/17 06:18 Respiratory Rate 18 02/11/17 06:18 Blood Pressure 114/76 02/11/17 06:18 O2 Sat by Pulse Oximetry (%) 97 02/10/17 21:00 Constitutional: Yes: Well Nourished, Calm Eyes: Yes: WNL HENT: Yes: WNL Neck: Yes: WNL Cardiovascular: Yes: Regular Rate and Rhythm, S1, S2 Respiratory: Yes: Rales (scattered hanny wheezes) Gastrointestinal: Yes: Normal Bowel Sounds, Soft Extremities: Yes: WNL Edema: No Labs: CBC, BMP Problem List - Problems (1) Shortness of breath Code(s): R06.02 - SHORTNESS OF BREATH (2) COPD (chronic obstructive pulmonary disease) Code(s): J44.9 - CHRONIC OBSTRUCTIVE PULMONARY DISEASE, UNSPECIFIED Qualifiers: Emphysema type: unspecified (3) COPD exacerbation Code(s): J44.1 - CHRONIC OBSTRUCTIVE PULMONARY DISEASE W (ACUTE) EXACERBATION (4) Mass of left lung Code(s): R91.8 - OTHER NONSPECIFIC ABNORMAL FINDING OF LUNG FIELD (5) Abdominal distension Code(s): R14.0 - ABDOMINAL DISTENSION (GASEOUS) (6) GERD (gastroesophageal reflux disease) Code(s): K21.9 - GASTRO-ESOPHAGEAL REFLUX DISEASE WITHOUT ESOPHAGITIS Qualifiers: Esophagitis presence: without esophagitis Qualified Code(s): K21.9 - Gastro -esophageal reflux disease without esophagitis (7) Hypothyroid Code(s): E03.9 - HYPOTHYROIDISM, UNSPECIFIED (8) ASHD (arteriosclerotic heart disease) Code(s): I25.10 - ATHSCL HEART DISEASE OF [place] CORONARY ARTERY W/O ANG PCTRS Assessment/Plan IMP COPD EXACERBATION CONRAD MASS LIKELY MALIGNANT ABDOMINAL DISTENTION ASHD [facility]AS ON CPAP HTN GERD PULMONARY HTN PLAN CONTINUE IV STEROIDS SAME DOSE INHALED BRONCHODILATORS O2 CT GUIDED BX WHEN RESPIRATORY STATUS IMPROVES PETS SCAN OUTPATIENT CPAP 7cmH2O AT BEDTIME MONITOR ROM LOVELL ENT EVALUATION PENDING DR DENISE Problem List - Problems (1) Shortness of breath Code(s): R06.02 - SHORTNESS OF BREATH (2) COPD (chronic obstructive pulmonary disease) Code(s): J44.9 - CHRONIC OBSTRUCTIVE PULMONARY DISEASE, UNSPECIFIED Qualifiers: Emphysema type: unspecified (3) COPD exacerbation Code(s): J44.1 - CHRONIC OBSTRUCTIVE PULMONARY DISEASE W (ACUTE) EXACERBATION (4) Mass of left lung Code(s): R91.8 - OTHER NONSPECIFIC ABNORMAL FINDING OF LUNG FIELD (5) Abdominal distension Code(s): R14.0 - ABDOMINAL DISTENSION (GASEOUS) (6) GERD (gastroesophageal reflux disease) Code(s): K21.9 - GASTRO-ESOPHAGEAL REFLUX DISEASE WITHOUT ESOPHAGITIS (7) Hypothyroid Code(s): E03.9 - HYPOTHYROIDISM, UNSPECIFIED (8) ASHD (arteriosclerotic heart disease) Code(s): I25.10 - ATHSCL HEART DISEASE OF [place] CORONARY ARTERY W/O ANG PCTRS
--- NOTE | 2017-02-11 18:03 | CON.ENT ---
Consult Consult Specialty:: ENT Referred by:: Pool Reason for Consultation:: Hoarseness - History of Present Illness Chief Complaint: hoarseness History of Present Illness: Pt with 3 weeks of hoarseness, improving partly since admission. She has ANA on cpap and GERD. 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 She denies choking and dysphagia currently. She also has had blood in nasal d/c. She has had copious post nasal drip and lots of secretions - History Source History Provided By: Patient, Medical Record Limitations to Obtaining History: No Limitations - Past Medical History Cardio/Vascular: Yes: CAD, CHF, HTN, Hyperlipdemia Gastrointestinal: Yes: GERD Endocrine: Yes: Diabetes Mellitus, Hypothyroidism - Alcohol/Substance Use Hx Alcohol Use: No - Smoking History Smoking history: Current every day smoker Have you smoked in the past 12 months: Yes Aproximately how many cigarettes per day: 5 Home Medications - Allergies Allergies/Adverse Reactions: Allergies Allergy/AdvReac Type Severity Reaction Status Date / Time pistachio nut Allergy Verified 02/04/17 09:12 shrimp Allergy Verified 02/04/17 09:12 tree and shrub pollen Allergy Verified 02/04/17 09:12 tree pollen Allergy Uncoded 02/04/17 09:12 - Home Medications Home Medications: Ambulatory Orders Atorvastatin Ca [Lipitor] 20 mg PO HS 02/04/17 Cyanocobalamin (Vitamin B-12) [B-12] 500 mcg PO WEEKLY 02/04/17 Desloratadine/Pseudoephedrine [Clarinex-D 12 Hour Tablet] 1 each PO DAILY Diltiazem Cd [Cardizem Cd -] 120 mg PO DAILY 02/04/17 Folic Acid 1 mg PO DAILY 02/04/17 Mesalamine 1.2 gm PO ASDIR 02/04/17 Montelukast Na [Singulair -] 10 mg PO HS 02/04/17 Paroxetine HCl [Paxil] 20 mg PO DAILY 02/04/17 Spironolactone [Aldactone] 25 mg PO DAILY 02/04/17 Thyroid [[place] Thyroid] 60 mg PO DAILY 02/04/17 Valsartan/Hydrochlorothiazide [Valsartan-Hctz 160-12.5 mg Tab] 1 each PO DAILY 02/04/17 Physical Exam-ENT Vital Signs: Vital Signs Temperature 98 F 02/11/17 14:44 Pulse Rate 82 02/11/17 14:44 Respiratory Rate 18 02/11/17 14:44 Blood Pressure 118/65 02/11/17 14:44 O2 Sat by Pulse Oximetry (%) 97 02/11/17 09:00 Constitutional: Yes: Well Nourished, No Distress Head: Yes: WNL, Atraumatic, Normocephalic Face: Yes: WNL, Symmetrical Eyes: Yes: WNL, Conjunctiva Clear Nose: Yes: WNL Nasal Passage: Yes: WNL Oral/Pharynx: Yes: WNL Outer Ear: Yes: WNL Neck: Yes: WNL, Other (scar from left hemithyroidectomy) Imaging - Results Cat Scan: Report Reviewed (chest with CONRAD mass) Problem List - Problems (1) Hoarseness Assessment/Plan: Left vocal cord paresis, 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 Please refer her for f/u laryngoscopy in 2-3 weeks. Code(s): R49.0 - DYSPHONIA (2) Epistaxis Assessment/Plan: No lesions, but nasal mucosa dry. Continue humified O2 and consider using saline spray and/or bacitracin to improve dryness. Code(s): R04.0 - EPISTAXIS Procedure Note Procedure: Nasal endoscopy with afrin/lido topically reveals deviation of septum, dry nasal mucosa, clear mucus. No masses or lesions. No sign of sinusitis. No bleeding sites. nasopharynx clear. Laryngoscopy: No masses/lesions, nor obstruction. She has mild arytenoid erythema and reduced speed and abduction of the left vocal cord. c/w GERD and partial left vocal cord paresis.
--- NOTE | 2017-02-11 21:52 | PN ---
Progress Note, Physician Chief Complaint: feeling better breathing improved History of Present Illness: copd,hypothryoidism,htn,ashd,awaiting lung bx - Current Medication List Current Medications: Active Medications Acetaminophen (Tylenol -) 650 mg PO Q6H PRN PRN Reason: FEVER OR PAIN Albuterol Sulfate (Ventolin 0.5% -) 1 amp NEB Q4H PRN PRN Reason: SHORT OF BREATH/WHEEZING Last Admin: 02/07/17 10:45 Dose: 1 amp Albuterol/Ipratropium (Duoneb -) 1 amp NEB TIDR [facility] Last Admin: 02/11/17 14:42 Dose: 1 amp Atorvastatin Calcium (Lipitor -) 10 mg PO HS [facility] Last Admin: 02/10/17 22:12 Dose: 10 mg Bethanechol Chloride (Urecholine -) 25 mg PO TID [facility] Last Admin: 02/11/17 14:00 Dose: 25 mg Budesonide/Formoterol Fumarate (Symbicort 160/4.5mcg -) 2 puff IH BID [facility] Last Admin: 02/11/17 10:01 Dose: 2 puff Diltiazem HCl (Cardizem Cd -) 120 mg PO DAILY [facility] Last Admin: 02/11/17 10:01 Dose: 120 mg Folic Acid (Folic Acid -) 1 mg PO DAILY [facility] Last Admin: 02/11/17 10:01 Dose: 1 mg Levofloxacin (Levaquin 500 Mg Premixed Ivpb -) 500 mg in 100 mls @ 100 mls/hr IVPB DAILY [facility] Last Admin: 02/11/17 09:55 Dose: 100 mls/hr Methylprednisolone Sodium Succinate (Solu-Medrol -) 40 mg IVPUSH Q8H-IV [facility] Last Admin: 02/11/17 17:00 Dose: 40 mg Montelukast Sodium (Singulair -) 10 mg PO HS [facility] Last Admin: 02/10/17 22:12 Dose: 10 mg Paroxetine HCl (Paxil -) 10 mg PO DAILY [facility] Last Admin: 02/11/17 10:01 Dose: 10 mg Polyethylene Glycol (Miralax (For Daily Use) -) 17 gm PO DAILY [facility] Last Admin: 02/11/17 10:01 Dose: Not Given Spironolactone (Aldactone -) 25 mg PO BID [facility] Last Admin: 02/11/17 10:01 Dose: 25 mg Tamsulosin HCl (Flomax -) 0.4 mg PO DAILY@0830 [facility] Last Admin: 02/11/17 10:01 Dose: 0.4 mg Thyroid ([place] Thyroid -) 60 mg PO DAILY@0700 [facility] Last Admin: 02/11/17 06:25 Dose: 60 mg - Objective Vital Signs: Vital Signs Temperature 97.6 F 02/11/17 19:40 Pulse Rate 75 02/11/17 19:40 Respiratory Rate 18 02/11/17 19:40 Blood Pressure 125/75 02/11/17 19:40 O2 Sat by Pulse Oximetry (%) 97 02/11/17 09:00 Constitutional: Yes: Calm Eyes: Yes: EOM Intact HENT: Yes: Normocephalic, Hoarseness Neck: Yes: Trachea Midline Cardiovascular: Yes: Regular Rate and Rhythm Respiratory: Yes: Rhonchi, Tachypnea Gastrointestinal: Yes: Normal Bowel Sounds ...Rectal Exam: Yes: Deferred Genitourinary: Yes: WNL Breast(s): Yes: WNL Musculoskeletal: Yes: WNL Extremities: Yes: WNL Edema: No Neurological: Yes: Alert, Oriented Labs: CBC, BMP 02/07/17 05:10 02/07/17 05:10 INR, PTT INR 1.04 (0.82-1.09) 02/04/17 09:53 Problem List - Problems (1) Hypothyroidism Code(s): E03.9 - HYPOTHYROIDISM, UNSPECIFIED Qualifiers: Hypothyroidism type: unspecified Qualified Code(s): E03.9 - Hypothyroidism , unspecified (2) ASHD (arteriosclerotic heart disease) Code(s): I25.10 - ATHSCL HEART DISEASE OF [place] CORONARY ARTERY W/O ANG PCTRS (3) Abdominal distension Code(s): R14.0 - ABDOMINAL DISTENSION (GASEOUS) (4) COPD (chronic obstructive pulmonary disease) Code(s): J44.9 - CHRONIC OBSTRUCTIVE PULMONARY DISEASE, UNSPECIFIED Qualifiers: Emphysema type: unspecified (5) GERD (gastroesophageal reflux disease) Code(s): K21.9 - GASTRO-ESOPHAGEAL REFLUX DISEASE WITHOUT ESOPHAGITIS Qualifiers: Esophagitis presence: without esophagitis Qualified Code(s): K21.9 - Gastro -esophageal reflux disease without esophagitis (6) Hypothyroid Code(s): E03.9 - HYPOTHYROIDISM, UNSPECIFIED (7) Mass of left lung Code(s): R91.8 - OTHER NONSPECIFIC ABNORMAL FINDING OF LUNG FIELD Assessment/Plan Current Active Problems ASHD (arteriosclerotic heart disease) (Acute) Abdominal distension (Acute) COPD (chronic obstructive pulmonary disease) (Acute) COPD exacerbation (Acute) Constipation (Acute) Diabetes mellitus (Acute) Epistaxis (Acute) GERD (gastroesophageal reflux disease) (Acute) HTN (hypertension) (Acute) Hoarseness (Acute) Hypercholesterolemia (Acute) Hypothyroid (Acute) Hypothyroidism (Acute) Mass of left lung (Acute) ANA (obstructive sleep apnea) (Acute) Shortness of breath (Acute) Urinary retention (Acute) Laboratory Tests 02/04/17 02/04/17 02/05/17 18:30 18:30 05:00 WBC RBC Hgb Hct MCV MCH MCHC RDW Sodium Potassium Chloride Carbon Dioxide Anion Gap BUN Creatinine Creat Clearance w eGFR Random Glucose Triglycerides 55 D Cholesterol 169 D Total LDL Cholesterol 116 H TSH 0.81 D Free T4 0.95 D 02/07/17 02/07/17 05:10 05:10 WBC 14.7 H RBC 4.59 Hgb 13.8 Hct 41.6 MCV 90.7 MCH 30.0 MCHC 33.1 RDW 13.2 Sodium 138 Potassium 4.4 Chloride 103 Carbon Dioxide 28 D Anion Gap 7 L BUN 20 H Creatinine 0.7 Creat Clearance w eGFR > 60 Random Glucose 105 D Triglycerides Cholesterol Total LDL Cholesterol TSH Free T4 plan: await lung bx stable for procedure Current Medications Generic Name Dose Route Start Last Admin Trade Name Freq PRN Reason Stop Dose Admin Acetaminophen 650 mg 02/04/17 15:54 Tylenol - PO Q6H PRN FEVER OR PAIN Albuterol Sulfate 1 amp 02/04/17 15:53 02/07/17 10:45 Ventolin 0.5% - NEB 1 amp Q4H PRN Administration SHORT OF BREATH/WHEEZING Albuterol/Ipratropium 1 amp 02/08/17 08:15 02/11/17 14:42 Duoneb - NEB 1 amp TIDR [facility] Administration Atorvastatin Calcium 10 mg 02/05/17 18:56 02/10/17 22:12 Lipitor - PO 10 mg HS [facility] Administration Bethanechol Chloride 25 mg 02/05/17 13:45 02/11/17 14:00 Urecholine - PO 25 mg TID [facility] Administration Budesonide/Formoterol Fumarate 2 puff 02/04/17 22:00 02/11/17 10:01 Symbicort 160/4.5mcg - IH 2 puff BID [facility] Administration Diltiazem HCl 120 mg 02/05/17 10:00 02/11/17 10:01 Cardizem Cd - PO 120 mg DAILY [facility] Administration Folic Acid 1 mg 02/05/17 10:00 02/11/17 10:01 Folic Acid - PO 1 mg DAILY [facility] Administration Levofloxacin 500 mg in 100 mls @ 100 mls/hr 02/04/17 22:30 02/11/17 09:55 Levaquin 500 Mg Premixed Ivpb - IVPB 100 mls/hr DAILY [facility] Administration Methylprednisolone Sodium Succinate 40 mg 02/07/17 18:00 02/11/17 17:00 Solu-Medrol - IVPUSH 40 mg Q8H-IV [facility] Administration Montelukast Sodium 10 mg 02/04/17 16:00 02/10/17 22:12 Singulair - PO 10 mg HS [facility] Administration Paroxetine HCl 10 mg 02/05/17 10:00 02/11/17 10:01 Paxil - PO 10 mg DAILY [facility] Administration Polyethylene Glycol 17 gm 02/07/17 10:00 02/11/17 10:01 Miralax (For Daily Use) - PO Not Given DAILY [facility] Spironolactone 25 mg 02/04/17 16:00 02/11/17 10:01 Aldactone - PO 25 mg BID [facility] Administration Tamsulosin HCl 0.4 mg 02/05/17 13:45 02/11/17 10:01 Flomax - PO 0.4 mg DAILY@0830 [facility] Administration Thyroid 60 mg 02/05/17 07:00 02/11/17 06:25 [place] Thyroid - PO 60 mg DAILY@0700 [facility] Administration
[2017-02-11] MEDS: MONTELUKAST NA 10 MG TABLET PO SCH (21:57)
[2017-02-11] MEDS: ATORVASTATIN CA 10 MG TABLET (FP) PO SCH (21:57)
[2017-02-12] MEDS: methylPREDNISolone NA SUCC 40 MG/1 ML VIAL IVPUSH SCH ×3 (01:51→14:47)
[2017-02-12] MEDS ORDERED: PT OWN MED DRAWER 7, Y5N ONE (06:07)
[2017-02-12] MEDS: BETHANECHOL CHLORIDE 25 MG TABLET PO SCH ×3 (06:15→22:37)
[2017-02-12] MEDS: THYROID 60 MG TABLET PO SCH (06:16)
[2017-02-12] MEDS: ALBUTEROL SO4 2.5/IPRATROPIUM 0.5 INH SOL 3 ML VIAL.NEB. NEB SCH ×3 (06:58→21:34)
[2017-02-12] MEDS: FOLIC ACID 1 MG TABLET (FP) PO SCH (10:03)
[2017-02-12] MEDS: TAMSULOSIN HCL 0.4 MG CAP.ER.24H (FP) PO SCH (10:03)
[2017-02-12] MEDS: SPIRONOLACTONE 25 MG TABLET (FP) PO SCH ×2 (10:03→22:37)
[2017-02-12] MEDS: POLYETHYLENE GLYCOL 3350 119 GM BTL PO SCH (10:03)
[2017-02-12] MEDS: BUDESONIDE/FORMETEROL FUMARATE 160/4.5 mcg INHALER IH SCH ×2 (10:04→22:38)
[2017-02-12] MEDS: PARoxetine HCL 10 MG TABLET (FP) PO SCH (10:04)
--- NOTE | 2017-02-12 11:44 | PN ---
Progress Note, Physician History of Present Illness: C/O CONSTIPATION BREATHING IS BETTER - Current Medication List Current Medications: Active Medications Acetaminophen (Tylenol -) 650 mg PO Q6H PRN PRN Reason: FEVER OR PAIN Albuterol Sulfate (Ventolin 0.5% -) 1 amp NEB Q4H PRN PRN Reason: SHORT OF BREATH/WHEEZING Last Admin: 02/07/17 10:45 Dose: 1 amp Albuterol/Ipratropium (Duoneb -) 1 amp NEB TIDR [facility] Last Admin: 02/12/17 06:58 Dose: 1 amp Atorvastatin Calcium (Lipitor -) 10 mg PO HS [facility] Last Admin: 02/11/17 21:57 Dose: 10 mg Bethanechol Chloride (Urecholine -) 25 mg PO TID [facility] Last Admin: 02/12/17 06:15 Dose: 25 mg Budesonide/Formoterol Fumarate (Symbicort 160/4.5mcg -) 2 puff IH BID [facility] Last Admin: 02/12/17 10:04 Dose: 2 puff Diltiazem HCl (Cardizem Cd -) 120 mg PO DAILY [facility] Last Admin: 02/12/17 10:02 Dose: 120 mg Folic Acid (Folic Acid -) 1 mg PO DAILY [facility] Last Admin: 02/12/17 10:03 Dose: 1 mg Methylprednisolone Sodium Succinate (Solu-Medrol -) 40 mg IVPUSH Q8H-IV [facility] Last Admin: 02/12/17 10:02 Dose: 40 mg Montelukast Sodium (Singulair -) 10 mg PO HS [facility] Last Admin: 02/11/17 21:57 Dose: 10 mg Paroxetine HCl (Paxil -) 10 mg PO DAILY [facility] Last Admin: 02/12/17 10:04 Dose: 10 mg Polyethylene Glycol (Miralax (For Daily Use) -) 17 gm PO DAILY [facility] Last Admin: 02/12/17 10:03 Dose: Not Given Spironolactone (Aldactone -) 25 mg PO BID [facility] Last Admin: 02/12/17 10:03 Dose: 25 mg Tamsulosin HCl (Flomax -) 0.4 mg PO DAILY@0830 [facility] Last Admin: 02/12/17 10:03 Dose: 0.4 mg Thyroid ([place] Thyroid -) 60 mg PO DAILY@0700 [facility] Last Admin: 02/12/17 06:16 Dose: 60 mg - Objective Vital Signs: Vital Signs Temperature 97.8 F 02/12/17 05:39 Pulse Rate 77 02/12/17 05:39 Respiratory Rate 20 02/12/17 07:42 Blood Pressure 120/67 02/12/17 05:39 O2 Sat by Pulse Oximetry (%) 97 02/12/17 07:42 Cardiovascular: Yes: Regular Rate and Rhythm Respiratory: Yes: Rhonchi, Other (MUCH IMPROVED) Gastrointestinal: Yes: Normal Bowel Sounds, Soft Labs: CBC, BMP 02/07/17 05:10 02/07/17 05:10 INR, PTT INR 1.04 (0.82-1.09) 02/04/17 09:53 Problem List - Problems (1) COPD (chronic obstructive pulmonary disease) Assessment/Plan: IMPROVED IV STEROIDS NEBS Code(s): J44.9 - CHRONIC OBSTRUCTIVE PULMONARY DISEASE, UNSPECIFIED Qualifiers: Emphysema type: unspecified (2) Constipation Assessment/Plan: RESOLVED DULCOLOX GIVEN--WITH GOOD RESULTS MIRALAX Code(s): K59.00 - CONSTIPATION, UNSPECIFIED (3) Hypothyroid Assessment/Plan: TSH--0.8 Code(s): E03.9 - HYPOTHYROIDISM, UNSPECIFIED (4) Mass of left lung Assessment/Plan: BIOPSY ON TUESDAY PET SCAN OUTPATIENT Code(s): R91.8 - OTHER NONSPECIFIC ABNORMAL FINDING OF LUNG FIELD (5) Urinary retention Assessment/Plan: SHIRA PHELAN--DOING WELL TRIAL OF VOIDING--NO ISSUES AT THIS TIME Code(s): R33.9 - RETENTION OF URINE, UNSPECIFIED
--- NOTE | 2017-02-12 12:05 | PN ---
Progress Note, Physician Chief Complaint: Feels better Less SOB Not in distress History of Present Illness: Patient was seen and examined. Awake and alert. Chart was reviewed Denies chest pain, less SOB and no palpitations - Current Medication List Current Medications: Active Medications Acetaminophen (Tylenol -) 650 mg PO Q6H PRN PRN Reason: FEVER OR PAIN Albuterol Sulfate (Ventolin 0.5% -) 1 amp NEB Q4H PRN PRN Reason: SHORT OF BREATH/WHEEZING Last Admin: 02/07/17 10:45 Dose: 1 amp Albuterol/Ipratropium (Duoneb -) 1 amp NEB TIDR [facility] Last Admin: 02/12/17 06:58 Dose: 1 amp Atorvastatin Calcium (Lipitor -) 10 mg PO HS [facility] Last Admin: 02/11/17 21:57 Dose: 10 mg Bethanechol Chloride (Urecholine -) 25 mg PO TID [facility] Last Admin: 02/12/17 06:15 Dose: 25 mg Budesonide/Formoterol Fumarate (Symbicort 160/4.5mcg -) 2 puff IH BID [facility] Last Admin: 02/12/17 10:04 Dose: 2 puff Diltiazem HCl (Cardizem Cd -) 120 mg PO DAILY [facility] Last Admin: 02/12/17 10:02 Dose: 120 mg Folic Acid (Folic Acid -) 1 mg PO DAILY [facility] [place] Last Admin: 02/12/17 10:03 Dose: 1 mg Methylprednisolone Sodium Succinate (Solu-Medrol -) 40 mg IVPUSH Q8H-IV [facility] Last Admin: 02/12/17 10:02 Dose: 40 mg Montelukast Sodium (Singulair -) 10 mg PO [facility] Last Admin: 02/11/17 21:57 Dose: 10 mg Paroxetine HCl (Paxil -) 10 mg PO DAILY [facility] Last Admin: 02/12/17 10:04 Dose: 10 mg Polyethylene Glycol (Miralax (For Daily Use) -) 17 gm PO DAILY [facility] Last Admin: 02/12/17 10:03 Dose: Not Given Spironolactone (Aldactone -) 25 mg PO BID [facility] Last Admin: 02/12/17 10:03 Dose: 25 mg Tamsulosin HCl (Flomax -) 0.4 mg PO DAILY@0830 [facility] Last Admin: 02/12/17 10:03 Dose: 0.4 mg Thyroid ([place] Thyroid -) 60 mg PO DAILY@0700 [facility] Last Admin: 02/12/17 06:16 Dose: 60 mg - Objective Vital Signs: Vital Signs Temperature 97.8 F 02/12/17 05:39 Pulse Rate 77 02/12/17 05:39 Respiratory Rate 20 02/12/17 07:42 Blood Pressure 120/67 02/12/17 05:39 O2 Sat by Pulse Oximetry (%) 97 02/12/17 07:42 Neck: Yes: Supple Cardiovascular: Yes: Regular Rate and Rhythm, S1, S2 Respiratory: Yes: Diminished Gastrointestinal: Yes: Normal Bowel Sounds, Soft. No: Tenderness Edema: No Additional Findings/Remarks: - Review of Systems Constitutional: denies: Chills, Fever Cardiovascular: reports: Shortness of Breath. denies: Chest Pain, Palpitations Respiratory: reports: Cough, SOB. denies: Hemoptysis, Orthopnea Gastrointestinal: denies: Bloating, Constipation. denies: Abdominal Pain, Diarrhea, Melena, Nausea, Rectal Bleeding, Vomiting Genitourinary: denies: Dysuria Neurological: denies: Dizziness, Headache, Seizure, Syncope, Weakness Endocrine: denies: Intolerance to Cold, Intolerance to Heat Labs: CBC, BMP 02/07/17 05:10 02/07/17 05:10 INR, PTT INR 1.04 (0.82-1.09) 02/04/17 09:53 Problem List - Problems (1) HTN (hypertension) Code(s): I10 - ESSENTIAL (PRIMARY) HYPERTENSION Qualifiers: Hypertension type: essential hypertension Qualified Code(s): I10 - Essential (primary) hypertension (2) Hypercholesterolemia Code(s): E78.00 - PURE HYPERCHOLESTEROLEMIA, UNSPECIFIED (3) Diabetes mellitus Code(s): E11.9 - TYPE 2 DIABETES MELLITUS WITHOUT COMPLICATIONS Qualifiers: Diabetes mellitus type: type 2 Diabetes mellitus complication status: without complication Diabetes mellitus termite control technician insulin use: without long-term use Qualified Code(s): E11.9 - Type 2 diabetes mellitus without complications (4) ANA (obstructive sleep apnea) Code(s): G47.33 - OBSTRUCTIVE SLEEP APNEA (ADULT) (PEDIATRIC) (5) ASHD (arteriosclerotic heart disease) Code(s): I25.10 - ATHSCL HEART DISEASE OF [place] CORONARY ARTERY W/O ANG PCTRS (6) COPD (chronic obstructive pulmonary disease) Code(s): J44.9 - CHRONIC OBSTRUCTIVE PULMONARY DISEASE, UNSPECIFIED Qualifiers: Emphysema type: unspecified (7) COPD exacerbation Code(s): J44.1 - CHRONIC OBSTRUCTIVE PULMONARY DISEASE W (ACUTE) EXACERBATION (8) GERD (gastroesophageal reflux disease) Code(s): K21.9 - GASTRO-ESOPHAGEAL REFLUX DISEASE WITHOUT ESOPHAGITIS Qualifiers: Esophagitis presence: without esophagitis Qualified Code(s): K21.9 - Gastro -esophageal reflux disease without esophagitis (9) Hypothyroidism Code(s): E03.9 - HYPOTHYROIDISM, UNSPECIFIED Qualifiers: Hypothyroidism type: unspecified Qualified Code(s): E03.9 - Hypothyroidism , unspecified (10) Mass of left lung Code(s): R91.8 - OTHER NONSPECIFIC ABNORMAL FINDING OF LUNG FIELD (11) Shortness of breath Code(s): R06.02 - SHORTNESS OF BREATH Assessment/Plan 1. Dyspnea with pulmonary nodule, possible malignancy and COPD exacerbation- await biopsy tentatively Tuesday 2. CAD - non-obstructive, angina pectoris 3. HTN/HCVD 4. Diastolic LV dysfunction 5. Hypercholesterolemia 6. NIDDM 7. Hypothyroidism 8. PVD 9. Anemia 10. Degenerative disc disease 11. OSAS PLAN: 1. Proceed with CT guided biopsy and further plans are to follow 2. Continue Cardizem CD 3. Continue Atorvastatin 4. Continue Spironolactone 5. PET scan as outpatient for further malignancy work up. 6. Steroid taper and inhaled bronchodilator 7. Empiric antibiotic coverage Further plans are to follow. Clinically improving Wilton Lubin MD
--- NOTE | 2017-02-12 14:29 | PN ---
Progress Note (short form) - Note Progress Note: Feels overall better. Less SOB. Some residual dry cough. Intake & Output 02/09/17 02/10/17 02/11/17 02/12/17 23:59 23:59 23:59 23:59 Intake Total 850 1450 160 330 Balance 850 1450 160 330 Weight 189 lb 189 lb 3.2 oz 194 lb 9.6 oz Last Vital Signs Temp Pulse Resp BP Pulse Ox 97.8 F 72 20 120/67 96 02/12/17 05:39 02/12/17 14:00 02/12/17 07:42 02/12/17 05:39 02/12/17 14:00 Active Medications Acetaminophen (Tylenol -) 650 mg PO Q6H PRN PRN Reason: FEVER OR PAIN Albuterol Sulfate (Ventolin 0.5% -) 1 amp NEB Q4H PRN PRN Reason: SHORT OF BREATH/WHEEZING Last Admin: 02/07/17 10:45 Dose: 1 amp Albuterol/Ipratropium (Duoneb -) 1 amp NEB TIDR [facility] Last Admin: 02/12/17 14:03 Dose: 1 amp Atorvastatin Calcium (Lipitor -) 10 mg PO HS [facility] Last Admin: 02/11/17 21:57 Dose: 10 mg Bethanechol Chloride (Urecholine -) 25 mg PO TID [facility] Last Admin: 02/12/17 06:15 Dose: 25 mg Budesonide/Formoterol Fumarate (Symbicort 160/4.5mcg -) 2 puff IH BID [facility] Last Admin: 02/12/17 10:04 Dose: 2 puff Diltiazem HCl (Cardizem Cd -) 120 mg PO DAILY [facility] Last Admin: 02/12/17 10:02 Dose: 120 mg Folic Acid (Folic Acid -) 1 mg PO DAILY [facility] Last Admin: 02/12/17 10:03 Dose: 1 mg Methylprednisolone Sodium Succinate (Solu-Medrol -) 40 mg IVPUSH Q8H-IV [facility] Last Admin: 02/12/17 10:02 Dose: 40 mg Montelukast Sodium (Singulair -) 10 mg PO HS [facility] Last Admin: 02/11/17 21:57 Dose: 10 mg Paroxetine HCl (Paxil -) 10 mg PO DAILY [facility] Last Admin: 02/12/17 10:04 Dose: 10 mg Polyethylene Glycol (Miralax (For Daily Use) -) 17 gm PO DAILY [facility] Last Admin: 02/12/17 10:03 Dose: Not Given Spironolactone (Aldactone -) 25 mg PO BID [facility] Last Admin: 02/12/17 10:03 Dose: 25 mg Tamsulosin HCl (Flomax -) 0.4 mg PO DAILY@0830 [facility] Last Admin: 02/12/17 10:03 Dose: 0.4 mg Thyroid ([place] Thyroid -) 60 mg PO DAILY@0700 [facility] Last Admin: 02/12/17 06:16 Dose: 60 mg Constitutional: Yes: Well Nourished, NAD Eyes: Yes: WNL HENT: Yes: WNL Neck: Yes: WNL Cardiovascular: Yes: Regular Rate and Rhythm, S1, S2 Respiratory: Yes: Few scattered basilar rhonchi, no wheeze Gastrointestinal: Yes: Normal Bowel Sounds, Soft Extremities: Yes: WNL Edema: No Labs: Problem List - Problems (1) Shortness of breath Code(s): R06.02 - SHORTNESS OF BREATH (2) COPD (chronic obstructive pulmonary disease) Code(s): J44.9 - CHRONIC OBSTRUCTIVE PULMONARY DISEASE, UNSPECIFIED Qualifiers: Emphysema type: unspecified (3) COPD exacerbation Code(s): J44.1 - CHRONIC OBSTRUCTIVE PULMONARY DISEASE W (ACUTE) EXACERBATION (4) Mass of left lung Code(s): R91.8 - OTHER NONSPECIFIC ABNORMAL FINDING OF LUNG FIELD (5) Abdominal distension Code(s): R14.0 - ABDOMINAL DISTENSION (GASEOUS) (6) GERD (gastroesophageal reflux disease) Code(s): K21.9 - GASTRO-ESOPHAGEAL REFLUX DISEASE WITHOUT ESOPHAGITIS Qualifiers: Esophagitis presence: without esophagitis Qualified Code(s): K21.9 - Gastro -esophageal reflux disease without esophagitis (7) Hypothyroid Code(s): E03.9 - HYPOTHYROIDISM, UNSPECIFIED (8) ASHD (arteriosclerotic heart disease) Code(s): I25.10 - ATHSCL HEART DISEASE OF [place] CORONARY ARTERY W/O ANG PCTRS Assessment/Plan IMP COPD EXACERBATION CONRAD MASS LIKELY MALIGNANT ABDOMINAL DISTENTION ASHD OSAS ON CPAP HTN GERD PULMONARY HTN PLAN TAPER STEROIDS INHALED BRONCHODILATORS O2 CT GUIDED BX POSSIBLY ON TUESDAY PET SCAN AN OUTPATIENT DR KNOWLES
[2017-02-12] MEDS: ATORVASTATIN CA 10 MG TABLET (FP) PO SCH (22:37)
[2017-02-12] MEDS: MONTELUKAST NA 10 MG TABLET PO SCH (22:37)
[2017-02-13] MEDS: methylPREDNISolone NA SUCC 40 MG/1 ML VIAL IVPUSH SCH ×2 (03:06→14:24)
[2017-02-13] MEDS: BETHANECHOL CHLORIDE 25 MG TABLET PO SCH ×3 (06:23→22:01)
[2017-02-13] MEDS: THYROID 60 MG TABLET PO SCH (06:23)
[2017-02-13] MEDS: ALBUTEROL SO4 2.5/IPRATROPIUM 0.5 INH SOL 3 ML VIAL.NEB. NEB SCH (06:50)
[2017-02-13] MEDS ORDERED: PT OWN MED DRAWER 7, Y5N ONE ×2 (08:16→09:10)
[2017-02-13] MEDS: FOLIC ACID 1 MG TABLET (FP) PO SCH (09:07)
[2017-02-13] MEDS: TAMSULOSIN HCL 0.4 MG CAP.ER.24H (FP) PO SCH (09:07)
[2017-02-13] MEDS: SPIRONOLACTONE 25 MG TABLET (FP) PO SCH ×2 (09:07→22:01)
[2017-02-13] MEDS: BUDESONIDE/FORMETEROL FUMARATE 160/4.5 mcg INHALER IH SCH ×2 (09:08→22:02)
[2017-02-13] MEDS: POLYETHYLENE GLYCOL 3350 119 GM BTL PO SCH (09:09)
[2017-02-13] MEDS: PARoxetine HCL 10 MG TABLET (FP) PO SCH (09:10)
--- NOTE | 2017-02-13 10:23 | PN ---
Progress Note, Physician Chief Complaint: Feels better Less SOB Not in distress Productive cough History of Present Illness: Patient was seen and examined. Awake and alert. Chart was reviewed Denies chest pain, less SOB and no palpitations Coughing persists with productive sputum - Current Medication List Current Medications: Active Medications Acetaminophen (Tylenol -) 650 mg PO Q6H PRN PRN Reason: FEVER OR PAIN Atorvastatin Calcium (Lipitor -) 10 mg PO HS [facility] Last Admin: 02/12/17 22:37 Dose: 10 mg Bethanechol Chloride (Urecholine -) 25 mg PO TID [facility] Last Admin: 02/13/17 06:23 Dose: 25 mg Budesonide/Formoterol Fumarate (Symbicort 160/4.5mcg -) 2 puff IH BID [facility] Last Admin: 02/13/17 09:08 Dose: 2 puff Diltiazem HCl (Cardizem Cd -) 120 mg PO DAILY [facility] Last Admin: 02/13/17 09:07 Dose: 120 mg Folic Acid (Folic Acid -) 1 mg PO DAILY [facility] Last Admin: 02/13/17 09:07 Dose: 1 mg Methylprednisolone Sodium Succinate (Solu-Medrol -) 40 mg IVPUSH Q12H [facility] Last Admin: 02/13/17 03:06 Dose: 40 mg Montelukast Sodium (Singulair -) 10 mg PO HS [facility] Last Admin: 02/12/17 22:37 Dose: 10 mg Paroxetine HCl (Paxil -) 10 mg PO DAILY [facility] Last Admin: 02/13/17 09:10 Dose: 10 mg Polyethylene Glycol (Miralax (For Daily Use) -) 17 gm PO DAILY [facility] Last Admin: 02/13/17 09:09 Dose: Not Given Spironolactone (Aldactone -) 25 mg PO BID [facility] Last Admin: 02/13/17 09:07 Dose: 25 mg Tamsulosin HCl (Flomax -) 0.4 mg PO DAILY@0830 [facility] Last Admin: 02/13/17 09:07 Dose: 0.4 mg Thyroid ([place] Thyroid -) 60 mg PO DAILY@0700 [facility] Last Admin: 02/13/17 06:23 Dose: 60 mg - Objective Vital Signs: Vital Signs Temperature 98.6 F 02/13/17 07:40 Pulse Rate 76 02/13/17 07:40 Respiratory Rate 20 02/13/17 07:43 Blood Pressure 118/72 02/13/17 07:40 O2 Sat by Pulse Oximetry (%) 96 02/12/17 20:19 Neck: Yes: Supple Cardiovascular: Yes: Regular Rate and Rhythm, S1, S2. No: Murmur Respiratory: Yes: Diminished, Rhonchi. No: Wheezes Gastrointestinal: Yes: Normal Bowel Sounds, Soft. No: Tenderness Edema: No Additional Findings/Remarks: - Review of Systems Constitutional: denies: Chills, Fever Cardiovascular: reports: Shortness of Breath. denies: Chest Pain, Palpitations Respiratory: reports: Cough, SOB. denies: Hemoptysis, Orthopnea Gastrointestinal: denies: Bloating, Constipation. denies: Abdominal Pain, Diarrhea, Melena, Nausea, Rectal Bleeding, Vomiting Genitourinary: denies: Dysuria Neurological: denies: Dizziness, Headache, Seizure, Syncope, Weakness Endocrine: denies: Intolerance to Cold, Intolerance to Heat Problem List - Problems (1) HTN (hypertension) Code(s): I10 - ESSENTIAL (PRIMARY) HYPERTENSION Qualifiers: Hypertension type: essential hypertension Qualified Code(s): I10 - Essential (primary) hypertension (2) Hypercholesterolemia Code(s): E78.00 - PURE HYPERCHOLESTEROLEMIA, UNSPECIFIED (3) Diabetes mellitus Code(s): E11.9 - TYPE 2 DIABETES MELLITUS WITHOUT COMPLICATIONS Qualifiers: Diabetes mellitus type: type 2 Diabetes mellitus complication status: without complication Diabetes mellitus 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 Qualified Code(s): E11.9 - Type 2 diabetes mellitus without complications (4) ANA (obstructive sleep apnea) Code(s): G47.33 - OBSTRUCTIVE SLEEP APNEA (ADULT) (PEDIATRIC) (5) ASHD (arteriosclerotic heart disease) Code(s): I25.10 - ATHSCL HEART DISEASE OF [place] CORONARY ARTERY W/O ANG PCTRS (6) COPD (chronic obstructive pulmonary disease) Code(s): J44.9 - CHRONIC OBSTRUCTIVE PULMONARY DISEASE, UNSPECIFIED Qualifiers: Emphysema type: unspecified (7) COPD exacerbation Code(s): J44.1 - CHRONIC OBSTRUCTIVE PULMONARY DISEASE W (ACUTE) EXACERBATION (8) GERD (gastroesophageal reflux disease) Code(s): K21.9 - GASTRO-ESOPHAGEAL REFLUX DISEASE WITHOUT ESOPHAGITIS Qualifiers: Esophagitis presence: without esophagitis Qualified Code(s): K21.9 - Gastro -esophageal reflux disease without esophagitis (9) Hypothyroidism Code(s): E03.9 - HYPOTHYROIDISM, UNSPECIFIED Qualifiers: Hypothyroidism type: unspecified Qualified Code(s): E03.9 - Hypothyroidism , unspecified (10) Mass of left lung Code(s): R91.8 - OTHER NONSPECIFIC ABNORMAL FINDING OF LUNG FIELD (11) Shortness of breath Code(s): R06.02 - SHORTNESS OF BREATH Assessment/Plan 1. Dyspnea with pulmonary nodule, possible malignancy and COPD exacerbation - await biopsy tentatively Tuesday 2. CAD - non-obstructive, angina pectoris 3. HTN/HCVD 4. Diastolic LV dysfunction 5. Hypercholesterolemia 6. NIDDM 7. Hypothyroidism 8. PVD 9. Anemia 10. Degenerative disc disease 11. OSAS PLAN: 1. Proceed with CT guided biopsy tentatively tomorrow and further plans are to follow. 2. Continue Cardizem CD 3. Continue Atorvastatin 4. Continue Spironolactone 5. PET scan can be done as outpatient for further malignancy work up. 6. Steroid taper and inhaled bronchodilator 7. Empiric antibiotic coverage Further plans are to follow. Wilton Lubin MD
--- NOTE | 2017-02-13 13:23 | PN ---
Progress Note (short form) - Note Progress Note: Feels overall better. Less SOB. Some residual dry cough. Intake & Output 02/10/17 02/11/17 02/12/17 02/13/17 23:59 23:59 23:59 23:59 Intake Total 1450 160 970 320 Balance 1450 160 970 320 Weight 189 lb 3.2 oz 194 lb 9.6 oz 187 lb 2 oz Last Vital Signs Temp Pulse Resp BP Pulse Ox 98.6 F 94 H 20 118/72 97 02/13/17 07:40 02/13/17 11:18 02/13/17 07:43 02/13/17 07:40 02/13/17 11:18 Active Medications Acetaminophen (Tylenol -) 650 mg PO Q6H PRN PRN Reason: FEVER OR PAIN Atorvastatin Calcium (Lipitor -) 10 mg PO [facility] Last Admin: 02/12/17 22:37 Dose: 10 mg Bethanechol Chloride (Urecholine -) 25 mg PO TID [facility] Last Admin: 02/13/17 06:23 Dose: 25 mg Budesonide/Formoterol Fumarate (Symbicort 160/4.5mcg -) 2 puff IH BID [facility] Last Admin: 02/13/17 09:08 Dose: 2 puff Diltiazem HCl (Cardizem Cd -) 120 mg PO DAILY [facility] Last Admin: 02/13/17 09:07 Dose: 120 mg Folic Acid (Folic Acid -) 1 mg PO DAILY [facility] Last Admin: 02/13/17 09:07 Dose: 1 mg Methylprednisolone Sodium Succinate (Solu-Medrol -) 40 mg IVPUSH Q12H [facility] Last Admin: 02/13/17 03:06 Dose: 40 mg Montelukast Sodium (Singulair -) 10 mg PO HS [facility] Last Admin: 02/12/17 22:37 Dose: 10 mg Paroxetine HCl (Paxil -) 10 mg PO DAILY [facility] Last Admin: 02/13/17 09:10 Dose: 10 mg Polyethylene Glycol (Miralax (For Daily Use) -) 17 gm PO DAILY [facility] Last Admin: 02/13/17 09:09 Dose: Not Given Spironolactone (Aldactone -) 25 mg PO BID [facility] Last Admin: 02/13/17 09:07 Dose: 25 mg Tamsulosin HCl (Flomax -) 0.4 mg PO DAILY@0830 [facility] Last Admin: 02/13/17 09:07 Dose: 0.4 mg Thyroid ([place] Thyroid -) 60 mg PO DAILY@0700 [facility] Last Admin: 02/13/17 06:23 Dose: 60 mg Constitutional: Yes: Well Nourished, NAD Eyes: Yes: WNL HENT: Yes: WNL Neck: Yes: WNL Cardiovascular: Yes: Regular Rate and Rhythm, S1, S2 Respiratory: Yes: Few scattered basilar rhonchi, no wheeze Gastrointestinal: Yes: Normal Bowel Sounds, Soft Extremities: Yes: WNL Edema: No Labs: Problem List - Problems (1) Shortness of breath Code(s): R06.02 - SHORTNESS OF BREATH (2) COPD (chronic obstructive pulmonary disease) Code(s): J44.9 - CHRONIC OBSTRUCTIVE PULMONARY DISEASE, UNSPECIFIED Qualifiers: Emphysema type: unspecified (3) COPD exacerbation Code(s): J44.1 - CHRONIC OBSTRUCTIVE PULMONARY DISEASE W (ACUTE) EXACERBATION (4) Mass of left lung Code(s): R91.8 - OTHER NONSPECIFIC ABNORMAL FINDING OF LUNG FIELD (5) Abdominal distension Code(s): R14.0 - ABDOMINAL DISTENSION (GASEOUS) (6) GERD (gastroesophageal reflux disease) Code(s): K21.9 - GASTRO-ESOPHAGEAL REFLUX DISEASE WITHOUT ESOPHAGITIS Qualifiers: Esophagitis presence: without esophagitis Qualified Code(s): K21.9 - Gastro -esophageal reflux disease without esophagitis (7) Hypothyroid Code(s): E03.9 - HYPOTHYROIDISM, UNSPECIFIED (8) ASHD (arteriosclerotic heart disease) Code(s): I25.10 - ATHSCL HEART DISEASE OF [place] CORONARY ARTERY W/O ANG PCTRS Assessment/Plan IMP COPD EXACERBATION CONRAD MASS LIKELY MALIGNANT ABDOMINAL DISTENTION ASHD [facility] ON CPAP HTN GERD PULMONARY HTN PLAN STEROIDS INHALED BRONCHODILATORS O2 CT GUIDED BX POSSIBLY TOMORROW POSSIBLE PET SCAN AN OUTPATIENT DR KNOWLES
--- NOTE | 2017-02-13 13:25 | PN ---
Progress Note, Physician History of Present Illness: C/O CONSTIPATION BREATHING IS BETTER - Current Medication List Current Medications: Active Medications Acetaminophen (Tylenol -) 650 mg PO Q6H PRN PRN Reason: FEVER OR PAIN Atorvastatin Calcium (Lipitor -) 10 mg PO HS [facility] Last Admin: 02/12/17 22:37 Dose: 10 mg Bethanechol Chloride (Urecholine -) 25 mg PO TID [facility] Last Admin: 02/13/17 06:23 Dose: 25 mg Budesonide/Formoterol Fumarate (Symbicort 160/4.5mcg -) 2 puff IH BID [facility] Last Admin: 02/13/17 09:08 Dose: 2 puff Diltiazem HCl (Cardizem Cd -) 120 mg PO DAILY [facility] Last Admin: 02/13/17 09:07 Dose: 120 mg Folic Acid (Folic Acid -) 1 mg PO DAILY [facility] Last Admin: 02/13/17 09:07 Dose: 1 mg Methylprednisolone Sodium Succinate (Solu-Medrol -) 40 mg IVPUSH Q12H [facility] Last Admin: 02/13/17 03:06 Dose: 40 mg Montelukast Sodium (Singulair -) 10 mg PO HS [facility] Last Admin: 02/12/17 22:37 Dose: 10 mg Paroxetine HCl (Paxil -) 10 mg PO DAILY [facility] Last Admin: 02/13/17 09:10 Dose: 10 mg Polyethylene Glycol (Miralax (For Daily Use) -) 17 gm PO DAILY [facility] Last Admin: 02/13/17 09:09 Dose: Not Given Spironolactone (Aldactone -) 25 mg PO BID [facility] Last Admin: 02/13/17 09:07 Dose: 25 mg Tamsulosin HCl (Flomax -) 0.4 mg PO DAILY@0830 [facility] Last Admin: 02/13/17 09:07 Dose: 0.4 mg Thyroid ([place] Thyroid -) 60 mg PO DAILY@0700 [facility] Last Admin: 02/13/17 06:23 Dose: 60 mg - Objective Vital Signs: Vital Signs Temperature 98.6 F 02/13/17 07:40 Pulse Rate 94 H 02/13/17 11:18 Respiratory Rate 20 02/13/17 07:43 Blood Pressure 118/72 02/13/17 07:40 O2 Sat by Pulse Oximetry (%) 97 02/13/17 11:18 Cardiovascular: Yes: Regular Rate and Rhythm Respiratory: Yes: Rhonchi Gastrointestinal: Yes: Normal Bowel Sounds, Soft Labs: CBC, BMP 02/07/17 05:10 02/07/17 05:10 INR, PTT INR 1.04 (0.82-1.09) 02/04/17 09:53 Problem List - Problems (1) COPD (chronic obstructive pulmonary disease) Assessment/Plan: IMPROVED IV STEROIDS NEBS Code(s): J44.9 - CHRONIC OBSTRUCTIVE PULMONARY DISEASE, UNSPECIFIED Qualifiers: Emphysema type: unspecified (2) Constipation Assessment/Plan: RESOLVED DULCOLOX GIVEN--WITH GOOD RESULTS MIRALAX Code(s): K59.00 - CONSTIPATION, UNSPECIFIED (3) Hypothyroid Assessment/Plan: TSH--0.8 Code(s): E03.9 - HYPOTHYROIDISM, UNSPECIFIED (4) Mass of left lung Assessment/Plan: BIOPSY ON TUESDAY PET SCAN OUTPATIENT Code(s): R91.8 - OTHER NONSPECIFIC ABNORMAL FINDING OF LUNG FIELD (5) Urinary retention Assessment/Plan: SHIRA PHELAN--DOING WELL TRIAL OF VOIDING--NO ISSUES AT THIS TIME Code(s): R33.9 - RETENTION OF URINE, UNSPECIFIED
[2017-02-13 18:08] LABS: BASOPHIL 0.2 % (0-2.0); MCH 30.7 pg (25.7-33.7); MCHC 33.8 g/dl (32.0-36.0); MEAN CELL VOLUME 90.6 fl (80-96); NEUTROPHILS 89.9 % (42.8-82.8); PLATELET COUNT 264 K/MM3 (134-434); RDW 13.3 % (11.6-15.6); WHITE BLOOD COUNT 19.9 K/mm3 (4.0-10.0)
[2017-02-13 18:24] LABS: ALBUMIN 3.3 g/dl (3.4-5.0); ANION GAP 8 (8-16); CALCIUM 8.4 mg/dL (8.5-10.1); CO2 29 mmol/L (21-32); CREATININE 0.8 mg/dL (0.55-1.02); GLUCOSE,RANDOM 120 mg/dL (74-106); SGPT/ALT 55 U/L (12-78)
[2017-02-13 18:25] LABS: ALK PHOS 55 U/L (45-117); BILIRUBIN,TOTAL 0.5 mg/dL (0.2-1.0); TOT PROT 6.6 g/dl (6.4-8.2)
[2017-02-13 18:26] LABS: SGOT/AST 17 U/L (15-37)
[2017-02-13] MEDS: ATORVASTATIN CA 10 MG TABLET (FP) PO SCH (22:01)
[2017-02-13] MEDS: MONTELUKAST NA 10 MG TABLET PO SCH (22:01)
--- NOTE | 2017-02-13 22:05 | PN ---
Progress Note (short form) - Note Progress Note: still anxious,and dyspneic awaiting lung bx Current Active Problems ASHD (arteriosclerotic heart disease) (Acute) Abdominal distension (Acute) COPD (chronic obstructive pulmonary disease) (Acute) COPD exacerbation (Acute) Constipation (Acute) Diabetes mellitus (Acute) Epistaxis (Acute) GERD (gastroesophageal reflux disease) (Acute) HTN (hypertension) (Acute) Hoarseness (Acute) Hypercholesterolemia (Acute) Hypothyroid (Acute) Hypothyroidism (Acute) Mass of left lung (Acute) ANA (obstructive sleep apnea) (Acute) Shortness of breath (Acute) Urinary retention (Acute) Abnormal Lab Results 02/13/17 02/13/17 17:10 17:10 WBC 19.9 H D MPV 7.0 L D Neutrophils % 89.9 H D Lymphocytes % 4.8 L D BUN 30 H D Random Glucose 120 H Calcium 8.4 L Albumin 3.3 L Laboratory Results - last 24 hr 02/13/17 02/13/17 17:10 17:10 WBC 19.9 H D RBC 4.81 Hgb 14.7 Hct 43.6 MCV 90.6 MCH 30.7 MCHC 33.8 RDW 13.3 Plt Count 264 MPV 7.0 L D Neutrophils % 89.9 H D Lymphocytes % 4.8 L D Monocytes % 5.1 Eosinophils % 0.0 D Basophils % 0.2 Sodium 137 Potassium 4.9 Chloride 100 Carbon Dioxide 29 Anion Gap 8 BUN 30 H D Creatinine 0.8 Creat Clearance w eGFR > 60 Random Glucose 120 H Calcium 8.4 L Total Bilirubin 0.5 AST 17 D ALT 55 Alkaline Phosphatase 55 Total Protein 6.6 Albumin 3.3 L plan: lung biopsy possible malignancy further eval depending on result of bx Problem List - Problems (1) Hypothyroidism Code(s): E03.9 - HYPOTHYROIDISM, UNSPECIFIED Qualifiers: Hypothyroidism type: unspecified Qualified Code(s): E03.9 - Hypothyroidism , unspecified (2) ASHD (arteriosclerotic heart disease) Code(s): I25.10 - ATHSCL HEART DISEASE OF [place] CORONARY ARTERY W/O ANG PCTRS (3) Abdominal distension Code(s): R14.0 - ABDOMINAL DISTENSION (GASEOUS) (4) COPD (chronic obstructive pulmonary disease) Code(s): J44.9 - CHRONIC OBSTRUCTIVE PULMONARY DISEASE, UNSPECIFIED Qualifiers: Emphysema type: unspecified (5) GERD (gastroesophageal reflux disease) Code(s): K21.9 - GASTRO-ESOPHAGEAL REFLUX DISEASE WITHOUT ESOPHAGITIS Qualifiers: Esophagitis presence: without esophagitis Qualified Code(s): K21.9 - Gastro -esophageal reflux disease without esophagitis (6) Hypothyroid Code(s): E03.9 - HYPOTHYROIDISM, UNSPECIFIED (7) Mass of left lung Code(s): R91.8 - OTHER NONSPECIFIC ABNORMAL FINDING OF LUNG FIELD
[2017-02-14] MEDS: methylPREDNISolone NA SUCC 40 MG/1 ML VIAL IVPUSH SCH ×2 (03:32→15:23)
[2017-02-14] MEDS ORDERED: PT OWN MED DRAWER 7, Y5N ONE ×2 (06:16→09:11)
[2017-02-14] MEDS: THYROID 60 MG TABLET PO SCH (06:28)
[2017-02-14] MEDS: BETHANECHOL CHLORIDE 25 MG TABLET PO SCH ×3 (06:28→21:43)
--- NOTE | 2017-02-14 08:50 | PN ---
Progress Note, Physician History of Present Illness: C/O CONSTIPATION BREATHING IS BETTER - Current Medication List Current Medications: Active Medications Acetaminophen (Tylenol -) 650 mg PO Q6H PRN PRN Reason: FEVER OR PAIN Atorvastatin Calcium (Lipitor -) 10 mg PO HS [facility] Last Admin: 02/13/17 22:01 Dose: 10 mg Bethanechol Chloride (Urecholine -) 25 mg PO TID [facility] Last Admin: 02/14/17 06:28 Dose: 25 mg Budesonide/Formoterol Fumarate (Symbicort 160/4.5mcg -) 2 puff IH BID [facility] Last Admin: 02/13/17 22:02 Dose: 2 puff Diltiazem HCl (Cardizem Cd -) 120 mg PO DAILY [facility] Last Admin: 02/13/17 09:07 Dose: 120 mg Folic Acid (Folic Acid -) 1 mg PO DAILY [facility] Last Admin: 02/13/17 09:07 Dose: 1 mg Methylprednisolone Sodium Succinate (Solu-Medrol -) 40 mg IVPUSH Q12H [facility] Last Admin: 02/14/17 03:32 Dose: 40 mg Montelukast Sodium (Singulair -) 10 mg PO HS [facility] Last Admin: 02/13/17 22:01 Dose: 10 mg Morphine Sulfate (Morphine Sulfate) 1 mg IVPUSH Q4H PRN PRN Reason: PAIN Paroxetine HCl (Paxil -) 10 mg PO DAILY [facility] Last Admin: 02/13/17 09:10 Dose: 10 mg Polyethylene Glycol (Miralax (For Daily Use) -) 17 gm PO DAILY [facility] Last Admin: 02/13/17 09:09 Dose: Not Given Spironolactone (Aldactone -) 25 mg PO BID [facility] Last Admin: 02/13/17 22:01 Dose: 25 mg Tamsulosin HCl (Flomax -) 0.4 mg PO DAILY@0830 [facility] Last Admin: 02/13/17 09:07 Dose: 0.4 mg Thyroid ([place] Thyroid -) 60 mg PO DAILY@0700 [facility] Last Admin: 02/14/17 06:28 Dose: 60 mg - Objective Vital Signs: Vital Signs Temperature 97.0 F L 02/14/17 07:36 Pulse Rate 84 02/14/17 07:36 Respiratory Rate 20 02/14/17 07:43 Blood Pressure 120/81 02/14/17 07:36 O2 Sat by Pulse Oximetry (%) 96 02/13/17 20:43 Cardiovascular: Yes: Regular Rate and Rhythm Respiratory: Yes: Regular, CTA Bilaterally Gastrointestinal: Yes: Normal Bowel Sounds, Soft Labs: CBC, BMP 02/13/17 17:10 02/13/17 17:10 INR, PTT INR 1.04 (0.82-1.09) 02/04/17 09:53 Problem List - Problems (1) COPD (chronic obstructive pulmonary disease) Assessment/Plan: IMPROVED IV STEROIDS--TO PO AFTER PROCEDURE NEBS Code(s): J44.9 - CHRONIC OBSTRUCTIVE PULMONARY DISEASE, UNSPECIFIED Qualifiers: Emphysema type: unspecified (2) Constipation Assessment/Plan: RESOLVED DULCOLOX GIVEN--WITH GOOD RESULTS MIRALAX Code(s): K59.00 - CONSTIPATION, UNSPECIFIED (3) Hypothyroid Assessment/Plan: TSH--0.8 Code(s): E03.9 - HYPOTHYROIDISM, UNSPECIFIED (4) Mass of left lung Assessment/Plan: BIOPSY TODAY PET SCAN OUTPATIENT Code(s): R91.8 - OTHER NONSPECIFIC ABNORMAL FINDING OF LUNG FIELD (5) Urinary retention Assessment/Plan: SHIRA PHELAN--DOING WELL TRIAL OF VOIDING--NO ISSUES AT THIS TIME Code(s): R33.9 - RETENTION OF URINE, UNSPECIFIED
[2017-02-14] MEDS: FOLIC ACID 1 MG TABLET (FP) PO SCH (09:10)
[2017-02-14] MEDS: SPIRONOLACTONE 25 MG TABLET (FP) PO SCH ×2 (09:10→21:42)
[2017-02-14] MEDS: TAMSULOSIN HCL 0.4 MG CAP.ER.24H (FP) PO SCH (09:10)
[2017-02-14] MEDS: PARoxetine HCL 10 MG TABLET (FP) PO SCH (09:12)
[2017-02-14] MEDS: BUDESONIDE/FORMETEROL FUMARATE 160/4.5 mcg INHALER IH SCH ×2 (09:12→21:43)
[2017-02-14] MEDS: POLYETHYLENE GLYCOL 3350 119 GM BTL PO SCH (09:13)
--- NOTE | 2017-02-14 10:45 | PN ---
Progress Note, Physician Chief Complaint: Feels better Less SOB Not in distress History of Present Illness: Patient was seen and examined. Awake and alert. Chart was reviewed Denies chest pain, less SOB and no palpitations Less cough - Current Medication List Current Medications: Active Medications Acetaminophen (Tylenol -) 650 mg PO Q6H PRN PRN Reason: FEVER OR PAIN Atorvastatin Calcium (Lipitor -) 10 mg PO HS [facility] Last Admin: 02/13/17 22:01 Dose: 10 mg Bethanechol Chloride (Urecholine -) 25 mg PO TID [facility] Last Admin: 02/14/17 06:28 Dose: 25 mg Budesonide/Formoterol Fumarate (Symbicort 160/4.5mcg -) 2 puff IH BID [facility] Last Admin: 02/14/17 09:12 Dose: 2 puff Diltiazem HCl (Cardizem Cd -) 120 mg PO DAILY [facility] Last Admin: 02/14/17 09:10 Dose: 120 mg Folic Acid (Folic Acid -) 1 mg PO DAILY [facility] Last Admin: 02/14/17 09:10 Dose: 1 mg Methylprednisolone Sodium Succinate (Solu-Medrol -) 40 mg IVPUSH Q12H [facility] Last Admin: 02/14/17 03:32 Dose: 40 mg Montelukast Sodium (Singulair -) 10 mg PO HS [facility] Last Admin: 02/13/17 22:01 Dose: 10 mg Morphine Sulfate (Morphine Sulfate) 1 mg IVPUSH Q4H PRN PRN Reason: PAIN Paroxetine HCl (Paxil -) 10 mg PO DAILY [facility] Last Admin: 02/14/17 09:12 Dose: 10 mg Polyethylene Glycol (Miralax (For Daily Use) -) 17 gm PO DAILY [facility] Last Admin: 02/14/17 09:13 Dose: 17 gm Spironolactone (Aldactone -) 25 mg PO BID [facility] Last Admin: 02/14/17 09:10 Dose: 25 mg Tamsulosin HCl (Flomax -) 0.4 mg PO DAILY@0830 [facility] Last Admin: 02/14/17 09:10 Dose: 0.4 mg Thyroid ([place] Thyroid -) 60 mg PO DAILY@0700 [facility] Last Admin: 02/14/17 06:28 Dose: 60 mg - Objective Vital Signs: Vital Signs Temperature 97.0 F L 02/14/17 07:36 Pulse Rate 84 02/14/17 07:36 Respiratory Rate 20 02/14/17 07:43 Blood Pressure 120/81 02/14/17 07:36 O2 Sat by Pulse Oximetry (%) 96 02/13/17 20:43 Neck: Yes: Supple Cardiovascular: Yes: Regular Rate and Rhythm, S1, S2 Respiratory: Yes: Diminished Gastrointestinal: Yes: Normal Bowel Sounds, Soft. No: Tenderness Edema: No Additional Findings/Remarks: - Review of Systems Constitutional: denies: Chills, Fever Cardiovascular: reports: Shortness of Breath. denies: Chest Pain, Palpitations Respiratory: reports: Cough, SOB. denies: Hemoptysis, Orthopnea Gastrointestinal: denies: Bloating, Constipation. denies: Abdominal Pain, Diarrhea, Melena, Nausea, Rectal Bleeding, Vomiting Genitourinary: denies: Dysuria Neurological: denies: Dizziness, Headache, Seizure, Syncope, Weakness Endocrine: denies: Intolerance to Cold, Intolerance to Heat Labs: CBC, BMP 02/13/17 17:10 02/13/17 17:10 Problem List - Problems (1) HTN (hypertension) Code(s): I10 - ESSENTIAL (PRIMARY) HYPERTENSION Qualifiers: Hypertension type: essential hypertension Qualified Code(s): I10 - Essential (primary) hypertension (2) Hypercholesterolemia Code(s): E78.00 - PURE HYPERCHOLESTEROLEMIA, UNSPECIFIED (3) Diabetes mellitus Code(s): E11.9 - TYPE 2 DIABETES MELLITUS WITHOUT COMPLICATIONS Qualifiers: Diabetes mellitus type: type 2 Diabetes mellitus complication status: without complication Diabetes mellitus meterman insulin use: without meterman use Qualified Code(s): E11.9 - Type 2 diabetes mellitus without complications (4) ANA (obstructive sleep apnea) Code(s): G47.33 - OBSTRUCTIVE SLEEP APNEA (ADULT) (PEDIATRIC) (5) ASHD (arteriosclerotic heart disease) Code(s): I25.10 - ATHSCL HEART DISEASE OF [place] CORONARY ARTERY W/O ANG PCTRS (6) COPD (chronic obstructive pulmonary disease) Code(s): J44.9 - CHRONIC OBSTRUCTIVE PULMONARY DISEASE, UNSPECIFIED Qualifiers: Emphysema type: unspecified (7) COPD exacerbation Code(s): J44.1 - CHRONIC OBSTRUCTIVE PULMONARY DISEASE W (ACUTE) EXACERBATION (8) GERD (gastroesophageal reflux disease) Code(s): K21.9 - GASTRO-ESOPHAGEAL REFLUX DISEASE WITHOUT ESOPHAGITIS Qualifiers: Esophagitis presence: without esophagitis Qualified Code(s): K21.9 - Gastro -esophageal reflux disease without esophagitis (9) Hypothyroidism Code(s): E03.9 - HYPOTHYROIDISM, UNSPECIFIED Qualifiers: Hypothyroidism type: unspecified Qualified Code(s): E03.9 - Hypothyroidism , unspecified (10) Mass of left lung Code(s): R91.8 - OTHER NONSPECIFIC ABNORMAL FINDING OF LUNG FIELD (11) Shortness of breath Code(s): R06.02 - SHORTNESS OF BREATH Assessment/Plan 1. Dyspnea with pulmonary nodule, possible malignancy and COPD exacerbation - await biopsy today 2. CAD - non-obstructive, angina pectoris 3. HTN/HCVD 4. Diastolic LV dysfunction 5. Hypercholesterolemia 6. NIDDM 7. Hypothyroidism 8. PVD 9. Anemia 10. Degenerative disc disease 11. OSAS PLAN: 1. Proceed with CT guided biopsy and further plans are to follow. 2. Continue Cardizem CD 3. Continue Atorvastatin 4. Continue Spironolactone 5. PET scan can be done as outpatient for further malignancy work up. 6. Steroid taper and inhaled bronchodilator 7. Empiric antibiotic coverage Further plans are to follow. Wilton Lubin MD
[2017-02-14] MEDS: morphine SULFATE 4 MG/ML VIAL IVPUSH PRN ×2 (11:01→19:00)
--- NOTE | 2017-02-14 11:06 | PN ---
Progress Note, Physician History of Present Illness: PULMONARY ALERT,FEELING BETTER,SOB IMPROVING. - Current Medication List Current Medications: Active Medications Acetaminophen (Tylenol -) 650 mg PO Q6H PRN PRN Reason: FEVER OR PAIN Atorvastatin Calcium (Lipitor -) 10 mg PO HS [facility] Last Admin: 02/13/17 22:01 Dose: 10 mg Bethanechol Chloride (Urecholine -) 25 mg PO TID [facility] Last Admin: 02/14/17 06:28 Dose: 25 mg Budesonide/Formoterol Fumarate (Symbicort 160/4.5mcg -) 2 puff IH BID [facility] Last Admin: 02/14/17 09:12 Dose: 2 puff Diltiazem HCl (Cardizem Cd -) 120 mg PO DAILY [facility] Last Admin: 02/14/17 09:10 Dose: 120 mg Folic Acid (Folic Acid -) 1 mg PO DAILY [facility] Last Admin: 02/14/17 09:10 Dose: 1 mg Methylprednisolone Sodium Succinate (Solu-Medrol -) 40 mg IVPUSH Q12H [facility] Last Admin: 02/14/17 03:32 Dose: 40 mg Montelukast Sodium (Singulair -) 10 mg PO HS [facility] Last Admin: 02/13/17 22:01 Dose: 10 mg Morphine Sulfate (Morphine Sulfate) 1 mg IVPUSH Q4H PRN PRN Reason: PAIN Paroxetine HCl (Paxil -) 10 mg PO DAILY [facility] Last Admin: 02/14/17 09:12 Dose: 10 mg Polyethylene Glycol (Miralax (For Daily Use) -) 17 gm PO DAILY [facility] Last Admin: 02/14/17 09:13 Dose: 17 gm Spironolactone (Aldactone -) 25 mg PO BID [facility] Last Admin: 02/14/17 09:10 Dose: 25 mg Tamsulosin HCl (Flomax -) 0.4 mg PO DAILY@0830 [facility] Last Admin: 02/14/17 09:10 Dose: 0.4 mg Thyroid ([place] Thyroid -) 60 mg PO DAILY@0700 [facility] Last Admin: 02/14/17 06:28 Dose: 60 mg - Objective Vital Signs: Vital Signs Temperature 97.0 F L 02/14/17 07:36 Pulse Rate 84 02/14/17 07:36 Respiratory Rate 20 02/14/17 07:43 Blood Pressure 120/81 02/14/17 07:36 O2 Sat by Pulse Oximetry (%) 96 02/13/17 20:43 Constitutional: Yes: Well Nourished, Calm Eyes: Yes: WNL HENT: Yes: WNL Neck: Yes: WNL Cardiovascular: Yes: Regular Rate and Rhythm, S1, S2 Respiratory: Yes: Wheezes (LESS WHEEZES BILATERALLY) Gastrointestinal: Yes: Normal Bowel Sounds, Soft Extremities: Yes: WNL Edema: No Labs: CBC, BMP Problem List - Problems (1) Shortness of breath Code(s): R06.02 - SHORTNESS OF BREATH (2) COPD (chronic obstructive pulmonary disease) Code(s): J44.9 - CHRONIC OBSTRUCTIVE PULMONARY DISEASE, UNSPECIFIED Qualifiers: Emphysema type: unspecified (3) COPD exacerbation Code(s): J44.1 - CHRONIC OBSTRUCTIVE PULMONARY DISEASE W (ACUTE) EXACERBATION (4) Mass of left lung Code(s): R91.8 - OTHER NONSPECIFIC ABNORMAL FINDING OF LUNG FIELD (5) Abdominal distension Code(s): R14.0 - ABDOMINAL DISTENSION (GASEOUS) (6) GERD (gastroesophageal reflux disease) Code(s): K21.9 - GASTRO-ESOPHAGEAL REFLUX DISEASE WITHOUT ESOPHAGITIS Qualifiers: Esophagitis presence: without esophagitis Qualified Code(s): K21.9 - Gastro -esophageal reflux disease without esophagitis (7) Hypothyroid Code(s): E03.9 - HYPOTHYROIDISM, UNSPECIFIED (8) ASHD (arteriosclerotic heart disease) Code(s): I25.10 - ATHSCL HEART DISEASE OF [place] CORONARY ARTERY W/O ANG PCTRS Assessment/Plan IMP COPD EXACERBATION CONRAD MASS LIKELY MALIGNANT ABDOMINAL DISTENTION ASHD OSAS ON CPAP HTN GERD PULMONARY HTN PLAN CONTINUE IV STEROIDS 40mg Q12 IN[address] BRON[address]ATORS O2 CT GUIDED BX TODAY PETS SCAN OUTPATIENT CPAP 7cmH2O AT BEDTIME DR DENISE Problem List - Problems (1) Shortness of breath Code(s): R06.02 - SHORTNESS OF BREATH (2) COPD (chronic obstructive pulmonary disease) Code(s): J44.9 - CHRONIC OBSTRUCTIVE PULMONARY DISEASE, UNSPECIFIED Qualifiers: Emphysema type: unspecified (3) COPD exacerbation Code(s): J44.1 - CHRONIC OBSTRUCTIVE PULMONARY DISEASE W (ACUTE) EXACERBATION (4) Mass of left lung Code(s): R91.8 - OTHER NONSPECIFIC ABNORMAL FINDING OF LUNG FIELD (5) Abdominal distension Code(s): R14.0 - ABDOMINAL DISTENSION (GASEOUS) (6) GERD (gastroesophageal reflux disease) Code(s): K21.9 - GASTRO-ESOPHAGEAL REFLUX DISEASE WITHOUT ESOPHAGITIS (7) Hypothyroid Code(s): E03.9 - HYPOTHYROIDISM, UNSPECIFIED (8) ASHD (arteriosclerotic heart disease) Code(s): I25.10 - ATHSCL HEART DISEASE OF [place] CORONARY ARTERY W/O ANG PCTRS
[2017-02-14] MEDS: LORazepam 1 MG TABLET PO PRN (19:01)
[2017-02-14] MEDS: ATORVASTATIN CA 10 MG TABLET (FP) PO SCH (21:42)
[2017-02-14] MEDS: MONTELUKAST NA 10 MG TABLET PO SCH (21:43)
--- NOTE | 2017-02-15 00:30 | PN ---
Progress Note, Physician Chief Complaint: resting post op lung biopsy History of Present Illness: sp lung bx,sp pneumotx chest tube in place - Current Medication List Current Medications: Active Medications Acetaminophen (Tylenol -) 650 mg PO Q6H PRN PRN Reason: FEVER OR PAIN Atorvastatin Calcium (Lipitor -) 10 mg PO HS [facility] Last Admin: 02/14/17 21:42 Dose: 10 mg Bethanechol Chloride (Urecholine -) 25 mg PO TID [facility] Last Admin: 02/14/17 21:43 Dose: 25 mg Budesonide/Formoterol Fumarate (Symbicort 160/4.5mcg -) 2 puff IH BID [facility] Last Admin: 02/14/17 21:43 Dose: 2 puff Diltiazem HCl (Cardizem Cd -) 120 mg PO DAILY [facility] Last Admin: 02/14/17 09:10 Dose: 120 mg Folic Acid (Folic Acid -) 1 mg PO DAILY [facility] Last Admin: 02/14/17 09:10 Dose: 1 mg Lorazepam (Ativan -) 1 mg PO BID PRN PRN Reason: ANXIETY Last Admin: 02/14/17 19:01 Dose: 1 mg Methylprednisolone Sodium Succinate (Solu-Medrol -) 40 mg IVPUSH Q12H [facility] Last Admin: 02/14/17 03:32 Dose: 40 mg Montelukast Sodium (Singulair -) 10 mg PO HS [facility] Last Admin: 02/14/17 21:43 Dose: 10 mg Morphine Sulfate (Morphine Sulfate) 1 mg IVPUSH Q4H PRN PRN Reason: PAIN Last Admin: 02/14/17 19:00 Dose: 1 mg Paroxetine HCl (Paxil -) 10 mg PO DAILY [facility] Last Admin: 02/14/17 09:12 Dose: 10 mg Polyethylene Glycol (Miralax (For Daily Use) -) 17 gm PO DAILY [facility] Last Admin: 02/14/17 09:13 Dose: 17 gm Spironolactone (Aldactone -) 25 mg PO BID [facility] Last Admin: 02/14/17 21:42 Dose: 25 mg Tamsulosin HCl (Flomax -) 0.4 mg PO DAILY@0830 [facility] Last Admin: 02/14/17 09:10 Dose: 0.4 mg Thyroid ([place] Thyroid -) 60 mg PO DAILY@0700 [facility] Last Admin: 02/14/17 06:28 Dose: 60 mg - Objective Vital Signs: Vital Signs Temperature 97.7 F 02/14/17 18:00 Pulse Rate 75 02/14/17 18:00 Respiratory Rate 19 02/14/17 18:00 Blood Pressure 113/62 02/14/17 18:00 O2 Sat by Pulse Oximetry (%) 98 02/14/17 15:49 Constitutional: Yes: No Distress Eyes: Yes: WNL HENT: Yes: Normocephalic Neck: Yes: Trachea Midline Cardiovascular: Yes: Regular Rate and Rhythm Respiratory: Yes: Tachypnea Gastrointestinal: Yes: Normal Bowel Sounds ...Rectal Exam: Yes: Deferred Genitourinary: Yes: WNL Musculoskeletal: Yes: WNL Extremities: Yes: WNL Neurological: Yes: Alert, Oriented Labs: CBC, BMP 02/13/17 17:10 02/13/17 17:10 INR, PTT INR 1.04 (0.82-1.09) 02/04/17 09:53 Problem List - Problems (1) Hypothyroidism Code(s): E03.9 - HYPOTHYROIDISM, UNSPECIFIED Qualifiers: Hypothyroidism type: unspecified Qualified Code(s): E03.9 - Hypothyroidism , unspecified (2) ASHD (arteriosclerotic heart disease) Code(s): I25.10 - ATHSCL HEART DISEASE OF [place] CORONARY ARTERY W/O ANG PCTRS (3) Abdominal distension Code(s): R14.0 - ABDOMINAL DISTENSION (GASEOUS) (4) COPD (chronic obstructive pulmonary disease) Code(s): J44.9 - CHRONIC OBSTRUCTIVE PULMONARY DISEASE, UNSPECIFIED Qualifiers: Emphysema type: unspecified (5) GERD (gastroesophageal reflux disease) Code(s): K21.9 - GASTRO-ESOPHAGEAL REFLUX DISEASE WITHOUT ESOPHAGITIS Qualifiers: Esophagitis presence: without esophagitis Qualified Code(s): K21.9 - Gastro -esophageal reflux disease without esophagitis (6) Hypothyroid Code(s): E03.9 - HYPOTHYROIDISM, UNSPECIFIED (7) Mass of left lung Code(s): R91.8 - OTHER NONSPECIFIC ABNORMAL FINDING OF LUNG FIELD Assessment/Plan Current Active Problems ASHD (arteriosclerotic heart disease) (Acute) Abdominal distension (Acute) COPD (chronic obstructive pulmonary disease) (Acute) COPD exacerbation (Acute) Constipation (Acute) Diabetes mellitus (Acute) Epistaxis (Acute) GERD (gastroesophageal reflux disease) (Acute) HTN (hypertension) (Acute) Hoarseness (Acute) Hypercholesterolemia (Acute) Hypothyroid (Acute) Hypothyroidism (Acute) Mass of left lung (Acute) ANA (obstructive sleep apnea) (Acute) Shortness of breath (Acute) Urinary retention (Acute) pneumotx sp lung bx Laboratory Tests 02/13/17 02/13/17 17:10 17:10 WBC 19.9 H D RBC 4.81 Hgb 14.7 Hct 43.6 MCV 90.6 MCH 30.7 MCHC 33.8 Plt Count 264 Sodium 137 Potassium 4.9 Chloride 100 Carbon Dioxide 29 Anion Gap 8 BUN 30 H D Creatinine 0.8 Creat Clearance w eGFR > 60 Random Glucose 120 H plan: chest tube in place pain controll await lung bx pet scan as op
[2017-02-15] MEDS: methylPREDNISolone NA SUCC 40 MG/1 ML VIAL IVPUSH SCH ×2 (03:30→13:52)
[2017-02-15] MEDS ORDERED: PT OWN MED DRAWER 7, Y5N ONE (06:31)
[2017-02-15] MEDS: THYROID 60 MG TABLET PO SCH (06:42)
[2017-02-15] MEDS: BETHANECHOL CHLORIDE 25 MG TABLET PO SCH ×3 (06:42→22:07)
--- NOTE | 2017-02-15 08:23 | PN ---
Progress Note, Physician History of Present Illness: HAD LUNG BIOPSY PNEUMOTHORAX--S/P PLEUREX CATH - Current Medication List Current Medications: Active Medications Acetaminophen (Tylenol -) 650 mg PO Q6H PRN PRN Reason: FEVER OR PAIN Atorvastatin Calcium (Lipitor -) 10 mg PO HS [facility] Last Admin: 02/14/17 21:42 Dose: 10 mg Bethanechol Chloride (Urecholine -) 25 mg PO TID [facility] Last Admin: 02/15/17 06:42 Dose: 25 mg Budesonide/Formoterol Fumarate (Symbicort 160/4.5mcg -) 2 puff IH BID [facility] Last Admin: 02/14/17 21:43 Dose: 2 puff Diltiazem HCl (Cardizem Cd -) 120 mg PO DAILY [facility] Last Admin: 02/14/17 09:10 Dose: 120 mg Folic Acid (Folic Acid -) 1 mg PO DAILY [facility] Last Admin: 02/14/17 09:10 Dose: 1 mg Lorazepam (Ativan -) 1 mg PO BID PRN PRN Reason: ANXIETY Last Admin: 02/14/17 19:01 Dose: 1 mg Methylprednisolone Sodium Succinate (Solu-Medrol -) 40 mg IVPUSH Q12H [facility] Last Admin: 02/15/17 03:30 Dose: 40 mg Montelukast Sodium (Singulair -) 10 mg PO HS [facility] Last Admin: 02/14/17 21:43 Dose: 10 mg Morphine Sulfate (Morphine Sulfate) 1 mg IVPUSH Q4H PRN PRN Reason: PAIN Last Admin: 02/14/17 19:00 Dose: 1 mg Paroxetine HCl (Paxil -) 10 mg PO DAILY [facility] Last Admin: 02/14/17 09:12 Dose: 10 mg Polyethylene Glycol (Miralax (For Daily Use) -) 17 gm PO DAILY [facility] Last Admin: 02/14/17 09:13 Dose: 17 gm Spironolactone (Aldactone -) 25 mg PO BID [facility] Last Admin: 02/14/17 21:42 Dose: 25 mg Tamsulosin HCl (Flomax -) 0.4 mg PO DAILY@0830 [facility] Last Admin: 02/14/17 09:10 Dose: 0.4 mg Thyroid ([place] Thyroid -) 60 mg PO DAILY@0700 [facility] Last Admin: 02/15/17 06:42 Dose: 60 mg - Objective Vital Signs: Vital Signs Temperature 97.8 F 02/15/17 05:52 Pulse Rate 67 02/15/17 05:52 Respiratory Rate 20 02/15/17 05:52 Blood Pressure 112/74 02/15/17 05:52 O2 Sat by Pulse Oximetry (%) 99 02/14/17 21:00 Respiratory: Yes: Diminished (AT THE LEFT BASE), Rhonchi Gastrointestinal: Yes: Normal Bowel Sounds, Soft. No: Tenderness Labs: CBC, BMP 02/13/17 17:10 02/13/17 17:10 INR, PTT INR 1.04 (0.82-1.09) 02/04/17 09:53 Problem List - Problems (1) COPD (chronic obstructive pulmonary disease) Assessment/Plan: IMPROVED IV STEROIDS--TO PO PER PULM NEBS Code(s): J44.9 - CHRONIC OBSTRUCTIVE PULMONARY DISEASE, UNSPECIFIED Qualifiers: Emphysema type: unspecified (2) Constipation Assessment/Plan: RESOLVED DULCOLOX GIVEN--WITH GOOD RESULTS MIRALAX Code(s): K59.00 - CONSTIPATION, UNSPECIFIED (3) Hypothyroid Assessment/Plan: TSH--0.8 Code(s): E03.9 - HYPOTHYROIDISM, UNSPECIFIED (4) Mass of left lung Assessment/Plan: S/P BIOPSY PET SCAN OUTPATIENT Code(s): R91.8 - OTHER NONSPECIFIC ABNORMAL FINDING OF LUNG FIELD (5) Urinary retention Assessment/Plan: SILVA DC--DOING WELL TRIAL OF VOIDING--NO ISSUES AT THIS TIME Code(s): R33.9 - RETENTION OF URINE, UNSPECIFIED (6) Pneumothorax after biopsy Assessment/Plan: PLEUREX IN PLACE CXR Code(s): J95.811 - POSTPROCEDURAL PNEUMOTHORAX
[2017-02-15] MEDS: SPIRONOLACTONE 25 MG TABLET (FP) PO SCH ×2 (09:49→22:22)
[2017-02-15] MEDS: FOLIC ACID 1 MG TABLET (FP) PO SCH (09:49)
[2017-02-15] MEDS: TAMSULOSIN HCL 0.4 MG CAP.ER.24H (FP) PO SCH (09:50)
[2017-02-15] MEDS: PARoxetine HCL 10 MG TABLET (FP) PO SCH (09:51)
[2017-02-15] MEDS: POLYETHYLENE GLYCOL 3350 119 GM BTL PO SCH (09:51)
[2017-02-15] MEDS: BUDESONIDE/FORMETEROL FUMARATE 160/4.5 mcg INHALER IH SCH ×2 (09:52→22:07)
[2017-02-15] MEDS: morphine SULFATE 4 MG/ML VIAL IVPUSH PRN ×2 (10:04→22:07)
--- NOTE | 2017-02-15 11:25 | PN ---
Progress Note (short form) - Note Progress Note: Chief Complaint: Events noted, notes reviewed, post biopsy with iatrogenic pneumothorax post PLEUREX catheter/chest tube insertion, complaining of discomfort at the catheter insertion site History of Present Illness: Seen and examined on telemetry. Events noted, notes reviewed, post biopsy with iatrogenic pneumothorax post PLEUREX catheter/chest tube insertion, complaining of discomfort at the catheter insertion site - Current Medication List Current Medications Acetaminophen (Tylenol -) 650 mg PO Q6H PRN PRN Reason: FEVER OR PAIN Atorvastatin Calcium (Lipitor -) 10 mg PO HS [facility] Last Admin: 02/14/17 21:42 Dose: 10 mg Bethanechol Chloride (Urecholine -) 25 mg PO TID [facility] Last Admin: 02/15/17 06:42 Dose: 25 mg Budesonide/Formoterol Fumarate (Symbicort 160/4.5mcg -) 2 puff IH BID [facility] Last Admin: 02/15/17 09:52 Dose: 2 puff Diltiazem HCl (Cardizem Cd -) 120 mg PO DAILY [facility] Last Admin: 02/15/17 09:50 Dose: 120 mg Folic Acid (Folic Acid -) 1 mg PO DAILY [facility] Last Admin: 02/15/17 09:49 Dose: 1 mg Lorazepam (Ativan -) 1 mg PO BID PRN PRN Reason: ANXIETY Last Admin: 02/14/17 19:01 Dose: 1 mg Methylprednisolone Sodium Succinate (Solu-Medrol -) 40 mg IVPUSH Q12H [facility] Last Admin: 02/15/17 03:30 Dose: 40 mg Montelukast Sodium (Singulair -) 10 mg PO HS [facility] Last Admin: 02/14/17 21:43 Dose: 10 mg Morphine Sulfate (Morphine Sulfate) 1 mg IVPUSH Q4H PRN PRN Reason: PAIN Last Admin: 02/15/17 10:04 Dose: 1 mg Paroxetine HCl (Paxil -) 10 mg PO DAILY [facility] Last Admin: 02/15/17 09:51 Dose: 10 mg Polyethylene Glycol (Miralax (For Daily Use) -) 17 gm PO DAILY [facility] Last Admin: 02/15/17 09:51 Dose: Not Given Spironolactone (Aldactone -) 25 mg PO BID [facility] Last Admin: 02/15/17 09:49 Dose: 25 mg Tamsulosin HCl (Flomax -) 0.4 mg PO DAILY@0830 [facility] Last Admin: 02/15/17 09:50 Dose: 0.4 mg Thyroid ([place] Thyroid -) 60 mg PO DAILY@0700 [facility] Last Admin: 02/15/17 06:42 Dose: 60 mg - Review of Systems Constitutional: denies: Chills, Fever Cardiovascular: reports: Shortness of Breath. denies: Chest Pain, Palpitations Respiratory: reports: Cough, SOB. denies: Hemoptysis, Orthopnea Gastrointestinal: denies: Bloating, Constipation. denies: Abdominal Pain, Diarrhea, Melena, Nausea, Rectal Bleeding, Vomiting Genitourinary: denies: Dysuria Neurological: denies: Dizziness, Headache, Seizure, Syncope, Weakness Endocrine: denies: Intolerance to Cold, Intolerance to Heat - Objective Vital Signs: Last Vital Signs Temp Pulse Resp BP Pulse Ox 97.8 F 97 H 20 110/67 93 L 02/15/17 08:50 02/15/17 08:50 02/15/17 08:50 02/15/17 08:50 02/15/17 08:55 Intake & Output 02/12/17 02/13/17 02/14/17 02/15/17 23:59 23:59 23:59 23:59 Intake Total 970 980 240 150 Output Total 1100 Balance 970 980 -860 150 Weight 187 lb 2 oz 186 lb 8 oz Neck: Supple Negative JVD No Bruit Cardiovascular: S1 S2 Regular Rate and Rhythm Respiratory: Diminished Bilaterally Gastrointestinal: Soft Benign Normal Bowel Sounds Ext: No edema Labs: CBC, BMP 02/13/17 17:10 02/13/17 17:10 Assessment/Plan ASSESSMENT: 1. Dyspnea related to COPD exacerbation, resolving 2. Lung mass most likely malignant post biopsy 3. CAD non-obstructive CAD, angina pectoris 4. Diastolic LV dysfunction with class 0 NYHA classification LV failure 5. HTN 6. NIDDM 7. Hypercholesterolemia 8. Hypothyroidism 9. PVD PLAN: 1. Continue Cardizem CD 2. Continue Lipitor 3. Continue Spironolactone 4. Await biopsy results 5. PLEUREX catheter management as per IR team eLnard Cunha MD
--- NOTE | 2017-02-15 11:41 | PN ---
Progress Note, Physician History of Present Illness: pulmonary alert,feeling better. pt s/p ct guided bx oralia mass tolerated procedure well. post-op chest x-ray + ptx, pigtail cath inserted w/o complications. - Current Medication List Current Medications: Active Medications Acetaminophen (Tylenol -) 650 mg PO Q6H PRN PRN Reason: FEVER OR PAIN Atorvastatin Calcium (Lipitor -) 10 mg PO HS [facility] Last Admin: 02/14/17 21:42 Dose: 10 mg Bethanechol Chloride (Urecholine -) 25 mg PO TID [facility] Last Admin: 02/15/17 06:42 Dose: 25 mg Budesonide/Formoterol Fumarate (Symbicort 160/4.5mcg -) 2 puff IH BID [facility] Last Admin: 02/15/17 09:52 Dose: 2 puff Diltiazem HCl (Cardizem Cd -) 120 mg PO DAILY [facility] Last Admin: 02/15/17 09:50 Dose: 120 mg Folic Acid (Folic Acid -) 1 mg PO DAILY [facility] Last Admin: 02/15/17 09:49 Dose: 1 mg Lorazepam (Ativan -) 1 mg PO BID PRN PRN Reason: ANXIETY Last Admin: 02/14/17 19:01 Dose: 1 mg Methylprednisolone Sodium Succinate (Solu-Medrol -) 40 mg IVPUSH Q12H [facility] Last Admin: 02/15/17 03:30 Dose: 40 mg Montelukast Sodium (Singulair -) 10 mg PO HS [facility] Last Admin: 02/14/17 21:43 Dose: 10 mg Morphine Sulfate (Morphine Sulfate) 1 mg IVPUSH Q4H PRN PRN Reason: PAIN Last Admin: 02/15/17 10:04 Dose: 1 mg Paroxetine HCl (Paxil -) 10 mg PO DAILY [facility] Last Admin: 02/15/17 09:51 Dose: 10 mg Polyethylene Glycol (Miralax (For Daily Use) -) 17 gm PO DAILY [facility] Last Admin: 02/15/17 09:51 Dose: Not Given Spironolactone (Aldactone -) 25 mg PO BID [facility] Last Admin: 02/15/17 09:49 Dose: 25 mg Tamsulosin HCl (Flomax -) 0.4 mg PO DAILY@0830 [facility] Last Admin: 02/15/17 09:50 Dose: 0.4 mg Thyroid ([place] Thyroid -) 60 mg PO DAILY@0700 [facility] Last Admin: 02/15/17 06:42 Dose: 60 mg - Objective Vital Signs: Vital Signs Temperature 97.8 F 02/15/17 08:50 Pulse Rate 97 H 02/15/17 08:50 Respiratory Rate 20 02/15/17 08:50 Blood Pressure 110/67 02/15/17 08:50 O2 Sat by Pulse Oximetry (%) 93 L 02/15/17 11:33 Constitutional: Yes: Well Nourished, Calm Eyes: Yes: WNL HENT: Yes: WNL Neck: Yes: WNL Cardiovascular: Yes: Regular Rate and Rhythm, S1, S2 Respiratory: Yes: Wheezes (less wheezes bilaterally) Gastrointestinal: Yes: Normal Bowel Sounds, Soft Extremities: Yes: WNL Edema: No Problem List - Problems (1) Shortness of breath Code(s): R06.02 - SHORTNESS OF BREATH (2) COPD (chronic obstructive pulmonary disease) Code(s): J44.9 - CHRONIC OBSTRUCTIVE PULMONARY DISEASE, UNSPECIFIED Qualifiers: Emphysema type: unspecified (3) COPD exacerbation Code(s): J44.1 - CHRONIC OBSTRUCTIVE PULMONARY DISEASE W (ACUTE) EXACERBATION (4) Mass of left lung Code(s): R91.8 - OTHER NONSPECIFIC ABNORMAL FINDING OF LUNG FIELD (5) Abdominal distension Code(s): R14.0 - ABDOMINAL DISTENSION (GASEOUS) (6) GERD (gastroesophageal reflux disease) Code(s): K21.9 - GASTRO-ESOPHAGEAL REFLUX DISEASE WITHOUT ESOPHAGITIS Qualifiers: Esophagitis presence: without esophagitis Qualified Code(s): K21.9 - Gastro -esophageal reflux disease without esophagitis (7) Hypothyroid Code(s): E03.9 - HYPOTHYROIDISM, UNSPECIFIED (8) ASHD (arteriosclerotic heart disease) Code(s): I25.10 - ATHSCL HEART DISEASE OF [place] CORONARY ARTERY W/O ANG PCTRS Assessment/Plan IMP COPD EXACERBATION ORALIA MASS LIKELY MALIGNANT L PTX S/P BX ABDOMINAL DISTENTION ASHD OSAS ON CPAP HTN GERD PULMONARY HTN PLAN CONTINUE IV STEROIDS 40mg Q12 INHALED BRONCHODILATORS O2 CHECK PATH F/U CHEST X-RAYS DR DENISE Problem List - Problems (1) Shortness of breath Code(s): R06.02 - SHORTNESS OF BREATH (2) COPD (chronic obstructive pulmonary disease) Code(s): J44.9 - CHRONIC OBSTRUCTIVE PULMONARY DISEASE, UNSPECIFIED Qualifiers: Emphysema type: unspecified (3) COPD exacerbation Code(s): J44.1 - CHRONIC OBSTRUCTIVE PULMONARY DISEASE W (ACUTE) EXACERBATION (4) Mass of left lung Code(s): R91.8 - OTHER NONSPECIFIC ABNORMAL FINDING OF LUNG FIELD (5) Abdominal distension Code(s): R14.0 - ABDOMINAL DISTENSION (GASEOUS) (6) GERD (gastroesophageal reflux disease) Code(s): K21.9 - GASTRO-ESOPHAGEAL REFLUX DISEASE WITHOUT ESOPHAGITIS (7) Hypothyroid Code(s): E03.9 - HYPOTHYROIDISM, UNSPECIFIED (8) ASHD (arteriosclerotic heart disease) Code(s): I25.10 - ATHSCL HEART DISEASE OF [place] CORONARY ARTERY W/O ANG PCTRS
--- NOTE | 2017-02-15 16:14 | PATH ---
Surgical Pathology Report Patient Name: ABE WILLETT [facility]. Rec. #: [id number] /Age/Gender: 1955 (Age: 61) / F Account: [id number] Location: 4 W TELEMETRY U Taken: 02/14/2017 Received: 02/14/2017 Reported: 02/15/2017 Physicians: Macarena Strickland M.D. Specimen(s) Received LUNG BIOPSY Clinical History Preoperative diagnosis: 61-year-old female smoker with emphysema and left upper lobe nodule Postoperative diagnosis: Left upper lobe lung nodule Final Diagnosis Lung, left, biopsy: ADENOCarcinoma, moderately DIFFERENTIATED. SEE COMMENT. Comment: Immunohistochemical stains performed and interpreted at [facility] show the tumor is positive for CK7, and TTF-1. Rare cells show positive staining for P63. Histomorphology and immunophenotype supports the above diagnosis. Electronically Signed Ewelina Garza M.D. Gross Description Received in formalin labeled "left lung," are 3 scott, cylindrical portions of soft tissue ranging from 0.5-0.9 cm in length and averaging 0.1 cm in diameter. The specimens are submitted in toto in one cassette. 02/14/201702/14/2017
[2017-02-15] MEDS: MONTELUKAST NA 10 MG TABLET PO SCH (22:07)
[2017-02-15] MEDS: LORazepam 1 MG TABLET PO PRN (22:07)
[2017-02-15] MEDS: ATORVASTATIN CA 10 MG TABLET (FP) PO SCH (22:07)
--- NOTE | 2017-02-16 01:02 | PN ---
Progress Note (short form) - Note Progress Note: comfortable yet dyspneic,pain control with injection at night ms Current Active Problems ASHD (arteriosclerotic heart disease) (Acute) Abdominal distension (Acute) COPD (chronic obstructive pulmonary disease) (Acute) COPD exacerbation (Acute) Constipation (Acute) Diabetes mellitus (Acute) Epistaxis (Acute) GERD (gastroesophageal reflux disease) (Acute) HTN (hypertension) (Acute) Hoarseness (Acute) Hypercholesterolemia (Acute) Hypothyroid (Acute) Hypothyroidism (Acute) Mass of left lung (Acute) ANA (obstructive sleep apnea) (Acute) Pneumothorax after biopsy (Acute) Shortness of breath (Acute) Urinary retention (Acute) ADENOCARCINOMA LUNG MASS BX NOTED discussed dx and further treatment will depend on progress and improvement clinically chest tube clamped Laboratory Tests 02/13/17 02/13/17 17:10 17:10 WBC 19.9 H D RBC 4.81 Hgb 14.7 Hct 43.6 MCV 90.6 MCH 30.7 RDW 13.3 Plt Count 264 Sodium 137 Potassium 4.9 Chloride 100 Carbon Dioxide 29 Anion Gap 8 BUN 30 H D Creatinine 0.8 Random Glucose 120 H plan: pet scan as outpatient for staging and further workup as needed when breathing improves Problem List - Problems (1) Hypothyroidism Code(s): E03.9 - HYPOTHYROIDISM, UNSPECIFIED Qualifiers: Hypothyroidism type: unspecified Qualified Code(s): E03.9 - Hypothyroidism , unspecified (2) ASHD (arteriosclerotic heart disease) Code(s): I25.10 - ATHSCL HEART DISEASE OF [place] CORONARY ARTERY W/O ANG PCTRS (3) Abdominal distension Code(s): R14.0 - ABDOMINAL DISTENSION (GASEOUS) (4) COPD (chronic obstructive pulmonary disease) Code(s): J44.9 - CHRONIC OBSTRUCTIVE PULMONARY DISEASE, UNSPECIFIED Qualifiers: Emphysema type: unspecified (5) GERD (gastroesophageal reflux disease) Code(s): K21.9 - GASTRO-ESOPHAGEAL REFLUX DISEASE WITHOUT ESOPHAGITIS Qualifiers: Esophagitis presence: without esophagitis Qualified Code(s): K21.9 - Gastro -esophageal reflux disease without esophagitis (6) Hypothyroid Code(s): E03.9 - HYPOTHYROIDISM, UNSPECIFIED (7) Mass of left lung Code(s): R91.8 - OTHER NONSPECIFIC ABNORMAL FINDING OF LUNG FIELD
[2017-02-16] MEDS: methylPREDNISolone NA SUCC 40 MG/1 ML VIAL IVPUSH SCH (03:12)
[2017-02-16] MEDS ORDERED: PT OWN MED DRAWER 7, Y5N ONE ×2 (05:55→09:47)
[2017-02-16] MEDS: THYROID 60 MG TABLET PO SCH (06:08)
[2017-02-16] MEDS: BETHANECHOL CHLORIDE 25 MG TABLET PO SCH ×3 (06:09→22:00)
[2017-02-16] MEDS: TAMSULOSIN HCL 0.4 MG CAP.ER.24H (FP) PO SCH (08:10)
[2017-02-16] MEDS: morphine SULFATE 4 MG/ML VIAL IVPUSH PRN ×2 (08:40→20:11)
--- NOTE | 2017-02-16 08:42 | PN ---
Progress Note, Physician - Current Medication List Current Medications: Active Medications Acetaminophen (Tylenol -) 650 mg PO Q6H PRN PRN Reason: FEVER OR PAIN Atorvastatin Calcium (Lipitor -) 10 mg PO HS [facility] Last Admin: 02/15/17 22:07 Dose: 10 mg Bethanechol Chloride (Urecholine -) 25 mg PO TID [facility] Last Admin: 02/16/17 06:09 Dose: 25 mg Budesonide/Formoterol Fumarate (Symbicort 160/4.5mcg -) 2 puff IH BID [facility] Last Admin: 02/15/17 22:07 Dose: 2 puff Diltiazem HCl (Cardizem Cd -) 120 mg PO DAILY [facility] Last Admin: 02/15/17 09:50 Dose: 120 mg Folic Acid (Folic Acid -) 1 mg PO DAILY [facility] Last Admin: 02/15/17 09:49 Dose: 1 mg Lorazepam (Ativan -) 1 mg PO BID PRN PRN Reason: ANXIETY Last Admin: 02/15/17 22:07 Dose: 1 mg Methylprednisolone Sodium Succinate (Solu-Medrol -) 40 mg IVPUSH Q12H [facility] Last Admin: 02/16/17 03:12 Dose: 40 mg Montelukast Sodium (Singulair -) 10 mg PO HS [facility] Last Admin: 02/15/17 22:07 Dose: 10 mg Morphine Sulfate (Morphine Sulfate) 1 mg IVPUSH Q4H PRN PRN Reason: PAIN Last Admin: 02/15/17 22:07 Dose: 1 mg Paroxetine HCl (Paxil -) 10 mg PO DAILY [facility] Last Admin: 02/15/17 09:51 Dose: 10 mg Polyethylene Glycol (Miralax (For Daily Use) -) 17 gm PO DAILY [facility] Last Admin: 02/15/17 09:51 Dose: Not Given Spironolactone (Aldactone -) 25 mg PO BID [facility] Last Admin: 02/15/17 22:22 Dose: 25 mg Tamsulosin HCl (Flomax -) 0.4 mg PO DAILY@0830 [facility] Last Admin: 02/16/17 08:10 Dose: 0.4 mg Thyroid ([place] Thyroid -) 60 mg PO DAILY@0700 [facility] Last Admin: 02/16/17 06:08 Dose: 60 mg - Objective Vital Signs: Vital Signs Temperature 98.7 F 02/16/17 04:18 Pulse Rate 82 11/29/17 06:00 Respiratory Rate 20 02/16/17 06:00 Blood Pressure 116/80 02/16/17 06:00 O2 Sat by Pulse Oximetry (%) 94 L 02/15/17 21:00 Labs: CBC, BMP 02/13/17 17:10 02/13/17 17:10 INR, PTT INR 1.04 (0.82-1.09) 02/04/17 09:53 Problem List - Problems (1) COPD (chronic obstructive pulmonary disease) Assessment/Plan: IMPROVED IV STEROIDS--TO PO TODAY--40 MG NEBS Code(s): J44.9 - CHRONIC OBSTRUCTIVE PULMONARY DISEASE, UNSPECIFIED Qualifiers: Emphysema type: unspecified (2) Constipation Assessment/Plan: RESOLVED DULCOLOX GIVEN--WITH GOOD RESULTS MIRALAX Code(s): K59.00 - CONSTIPATION, UNSPECIFIED (3) Hypothyroid Assessment/Plan: TSH--0.8 Code(s): E03.9 - HYPOTHYROIDISM, UNSPECIFIED (4) Mass of left lung Assessment/Plan: S/P BIOPSY PET SCAN OUTPATIENT Code(s): R91.8 - OTHER NONSPECIFIC ABNORMAL FINDING OF LUNG FIELD (5) Urinary retention Assessment/Plan: SILVA DC--DOING WELL TRIAL OF VOIDING--NO ISSUES AT THIS TIME Code(s): R33.9 - RETENTION OF URINE, UNSPECIFIED (6) Pneumothorax after biopsy Assessment/Plan: PLEUREX IN PLACE CXR Code(s): J95.811 - POSTPROCEDURAL PNEUMOTHORAX
[2017-02-16] MEDS: SPIRONOLACTONE 25 MG TABLET (FP) PO SCH ×2 (09:45→22:00)
[2017-02-16] MEDS: predniSONE 20 MG TABLET (UD) PO SCH (09:45)
[2017-02-16] MEDS: FOLIC ACID 1 MG TABLET (FP) PO SCH (09:45)
[2017-02-16] MEDS: BUDESONIDE/FORMETEROL FUMARATE 160/4.5 mcg INHALER IH SCH ×2 (09:47→22:00)
[2017-02-16] MEDS: PARoxetine HCL 10 MG TABLET (FP) PO SCH (09:49)
[2017-02-16] MEDS: POLYETHYLENE GLYCOL 3350 119 GM BTL PO SCH (09:50)
--- NOTE | 2017-02-16 11:27 | PN ---
Progress Note, Physician History of Present Illness: pulmonary alert,feeling better,dyspnea improving. bx + adeno ca - Current Medication List Current Medications: Active Medications Acetaminophen (Tylenol -) 650 mg PO Q6H PRN PRN Reason: FEVER OR PAIN Atorvastatin Calcium (Lipitor -) 10 mg PO HS [facility] Last Admin: 02/15/17 22:07 Dose: 10 mg Bethanechol Chloride (Urecholine -) 25 mg PO TID [facility] Last Admin: 02/16/17 06:09 Dose: 25 mg Budesonide/Formoterol Fumarate (Symbicort 160/4.5mcg -) 2 puff IH BID [facility] Last Admin: 02/16/17 09:47 Dose: 2 puff Diltiazem HCl (Cardizem Cd -) 120 mg PO DAILY [facility] Last Admin: 02/16/17 09:45 Dose: 120 mg Folic Acid (Folic Acid -) 1 mg PO DAILY [facility] Last Admin: 02/16/17 09:45 Dose: 1 mg Lorazepam (Ativan -) 1 mg PO BID PRN PRN Reason: ANXIETY Last Admin: 02/15/17 22:07 Dose: 1 mg Montelukast Sodium (Singulair -) 10 mg PO HS [facility] Last Admin: 02/15/17 22:07 Dose: 10 mg Morphine Sulfate (Morphine Sulfate) 1 mg IVPUSH Q4H PRN PRN Reason: PAIN Last Admin: 02/16/17 08:40 Dose: 1 mg Paroxetine HCl (Paxil -) 10 mg PO DAILY [facility] Last Admin: 02/16/17 09:49 Dose: 10 mg Polyethylene Glycol (Miralax (For Daily Use) -) 17 gm PO DAILY [facility] Last Admin: 02/16/17 09:50 Dose: Not Given Prednisone (Deltasone -) 40 mg PO DAILY [facility] Last Admin: 02/16/17 09:45 Dose: 40 mg Spironolactone (Aldactone -) 25 mg PO BID [facility] Last Admin: 02/16/17 09:45 Dose: 25 mg Tamsulosin HCl (Flomax -) 0.4 mg PO DAILY@0830 [facility] Last Admin: 02/16/17 08:10 Dose: 0.4 mg Thyroid ([place] Thyroid -) 60 mg PO DAILY@0700 [facility] Last Admin: 02/16/17 06:08 Dose: 60 mg - Objective Vital Signs: Vital Signs Temperature 98.0 F 02/16/17 08:51 Pulse Rate 86 02/16/17 11:14 Respiratory Rate 20 02/16/17 08:51 Blood Pressure 114/58 02/16/17 08:51 O2 Sat by Pulse Oximetry (%) 94 L 02/16/17 11:14 Constitutional: Yes: Well Nourished, Calm Eyes: Yes: WNL HENT: Yes: WNL Neck: Yes: WNL Cardiovascular: Yes: Regular Rate and Rhythm, S1, S2 Respiratory: Yes: Wheezes (few scattered hanny wheezes) Gastrointestinal: Yes: Normal Bowel Sounds, Soft Extremities: Yes: WNL Edema: No Labs: Problem List - Problems (1) Shortness of breath Code(s): R06.02 - SHORTNESS OF BREATH (2) COPD (chronic obstructive pulmonary disease) Code(s): J44.9 - CHRONIC OBSTRUCTIVE PULMONARY DISEASE, UNSPECIFIED Qualifiers: Emphysema type: unspecified (3) COPD exacerbation Code(s): J44.1 - CHRONIC OBSTRUCTIVE PULMONARY DISEASE W (ACUTE) EXACERBATION (4) Mass of left lung Code(s): R91.8 - OTHER NONSPECIFIC ABNORMAL FINDING OF LUNG FIELD (5) Abdominal distension Code(s): R14.0 - ABDOMINAL DISTENSION (GASEOUS) (6) GERD (gastroesophageal reflux disease) Code(s): K21.9 - GASTRO-ESOPHAGEAL REFLUX DISEASE WITHOUT ESOPHAGITIS Qualifiers: Esophagitis presence: without esophagitis Qualified Code(s): K21.9 - Gastro -esophageal reflux disease without esophagitis (7) Hypothyroid Code(s): E03.9 - HYPOTHYROIDISM, UNSPECIFIED (8) ASHD (arteriosclerotic heart disease) Code(s): I25.10 - ATHSCL HEART DISEASE OF [place] CORONARY ARTERY W/O ANG PCTRS Assessment/Plan IMP COPD EXACERBATION IMPROVED CONRAD MASS MALIGNANT ADENO CA L PTX S/P BX ABDOMINAL DISTENTION ASHD OSAS ON CPAP HTN GERD PULMONARY HTN PLAN PREDNISONE 40mg INHALED BRONCHODILATORS O2 CHEST TUBE REMOVAL PER IR PET SCAN OUT PATIENT DR DENISE Problem List - Problems (1) Shortness of breath Code(s): R06.02 - SHORTNESS OF BREATH (2) COPD (chronic obstructive pulmonary disease) Code(s): J44.9 - CHRONIC OBSTRUCTIVE PULMONARY DISEASE, UNSPECIFIED Qualifiers: Emphysema type: unspecified (3) COPD exacerbation Code(s): J44.1 - CHRONIC OBSTRUCTIVE PULMONARY DISEASE W (ACUTE) EXACERBATION (4) Mass of left lung Code(s): R91.8 - OTHER NONSPECIFIC ABNORMAL FINDING OF LUNG FIELD (5) Abdominal distension Code(s): R14.0 - ABDOMINAL DISTENSION (GASEOUS) (6) GERD (gastroesophageal reflux disease) Code(s): K21.9 - GASTRO-ESOPHAGEAL REFLUX DISEASE WITHOUT ESOPHAGITIS (7) Hypothyroid Code(s): E03.9 - HYPOTHYROIDISM, UNSPECIFIED (8) ASHD (arteriosclerotic heart disease) Code(s): I25.10 - ATHSCL HEART DISEASE OF [place] CORONARY ARTERY W/O ANG PCTRS
--- NOTE | 2017-02-16 11:29 | PN ---
Progress Note, Physician History of Present Illness: Dyspnea improved, chest tube removed. - Current Medication List Current Medications: Active Medications Acetaminophen (Tylenol -) 650 mg PO Q6H PRN PRN Reason: FEVER OR PAIN Atorvastatin Calcium (Lipitor -) 10 mg PO HS [facility] Last Admin: 02/15/17 22:07 Dose: 10 mg Bethanechol Chloride (Urecholine -) 25 mg PO TID [facility] Last Admin: 02/16/17 06:09 Dose: 25 mg Budesonide/Formoterol Fumarate (Symbicort 160/4.5mcg -) 2 puff IH BID [facility] Last Admin: 02/16/17 09:47 Dose: 2 puff Diltiazem HCl (Cardizem Cd -) 120 mg PO DAILY [facility] Last Admin: 02/16/17 09:45 Dose: 120 mg Folic Acid (Folic Acid -) 1 mg PO DAILY [facility] Last Admin: 02/16/17 09:45 Dose: 1 mg Lorazepam (Ativan -) 1 mg PO BID PRN PRN Reason: ANXIETY Last Admin: 02/15/17 22:07 Dose: 1 mg Montelukast Sodium (Singulair -) 10 mg PO HS [facility] Last Admin: 02/15/17 22:07 Dose: 10 mg Morphine Sulfate (Morphine Sulfate) 1 mg IVPUSH Q4H PRN PRN Reason: PAIN Last Admin: 02/16/17 08:40 Dose: 1 mg Paroxetine HCl (Paxil -) 10 mg PO DAILY [facility] Last Admin: 02/16/17 09:49 Dose: 10 mg Polyethylene Glycol (Miralax (For Daily Use) -) 17 gm PO DAILY [facility] Last Admin: 02/16/17 09:50 Dose: Not Given Prednisone (Deltasone -) 40 mg PO DAILY [facility] Last Admin: 02/16/17 09:45 Dose: 40 mg Spironolactone (Aldactone -) 25 mg PO BID [facility] Last Admin: 02/16/17 09:45 Dose: 25 mg Tamsulosin HCl (Flomax -) 0.4 mg PO DAILY@0830 [facility] Last Admin: 02/16/17 08:10 Dose: 0.4 mg Thyroid ([place] Thyroid -) 60 mg PO DAILY@0700 [facility] Last Admin: 02/16/17 06:08 Dose: 60 mg - Objective Vital Signs: Vital Signs Temperature 98.0 F 02/16/17 08:51 Pulse Rate 86 02/16/17 11:14 Respiratory Rate 20 02/16/17 08:51 Blood Pressure 114/58 02/16/17 08:51 O2 Sat by Pulse Oximetry (%) 94 L 02/16/17 11:14 Constitutional: Yes: No Distress, Calm Neck: Yes: Supple Cardiovascular: Yes: Regular Rate and Rhythm Respiratory: Yes: Regular, Diminished, On Nasal O2 Gastrointestinal: Yes: Normal Bowel Sounds, Soft Edema: No Labs: CBC, BMP 02/13/17 17:10 02/13/17 17:10 INR, PTT INR 1.04 (0.82-1.09) 02/04/17 09:53 Problem List - Problems (1) ASHD (arteriosclerotic heart disease) Code(s): I25.10 - ATHSCL HEART DISEASE OF [place] CORONARY ARTERY W/O ANG PCTRS (2) COPD exacerbation Code(s): J44.1 - CHRONIC OBSTRUCTIVE PULMONARY DISEASE W (ACUTE) EXACERBATION (3) Diabetes mellitus Code(s): E11.9 - TYPE 2 DIABETES MELLITUS WITHOUT COMPLICATIONS Qualifiers: Diabetes mellitus type: type 2 Diabetes mellitus complication status: without complication Diabetes mellitus terminal system operator insulin use: without nursing home use Qualified Code(s): E11.9 - Type 2 diabetes mellitus without complications (4) HTN (hypertension) Code(s): I10 - ESSENTIAL (PRIMARY) HYPERTENSION Qualifiers: Hypertension type: essential hypertension Qualified Code(s): I10 - Essential (primary) hypertension (5) Hypercholesterolemia Code(s): E78.00 - PURE HYPERCHOLESTEROLEMIA, UNSPECIFIED (6) Hypothyroidism Code(s): E03.9 - HYPOTHYROIDISM, UNSPECIFIED Qualifiers: Hypothyroidism type: unspecified Qualified Code(s): E03.9 - Hypothyroidism , unspecified (7) ANA (obstructive sleep apnea) Code(s): G47.33 - OBSTRUCTIVE SLEEP APNEA (ADULT) (PEDIATRIC) (8) Shortness of breath Code(s): R06.02 - SHORTNESS OF BREATH (9) Adenocarcinoma of left lung Code(s): C34.92 - MALIGNANT NEOPLASM OF UNSP PART OF LEFT BRONCHUS OR LUNG Assessment/Plan 1. Dyspnea related to COPD exacerbation, resolving 2. Lung upper lobe mass c/w mod differentiated adenocarcinoma 3. CAD non-obstructive CAD, angina pectoris 4. Diastolic LV dysfunction with class 0 NYHA classification LV failure 5. HTN 6. NIDDM 7. Hypercholesterolemia 8. Hypothyroidism 9. PVD 10. Left PTX post lung biopsy resolved 11. OSAS on cpap PLAN: 1. Continue Cardizem CD 120 qd 2. Continue Lipitor 10 qhs 3. Continue Spironolactone 25 bid 4. BD, singulair, oral steroid taper, O2 as needed 5. Pet scan as outpatient
[2017-02-16] MEDS: MONTELUKAST NA 10 MG TABLET PO SCH (22:00)
[2017-02-16] MEDS: ATORVASTATIN CA 10 MG TABLET (FP) PO SCH (22:00)
[2017-02-16] MEDS: LORazepam 1 MG TABLET PO PRN (23:41)
[2017-02-17] MEDS ORDERED: PT OWN MED DRAWER 7, Y5N ONE ×2 (06:57→09:46)
[2017-02-17] MEDS: THYROID 60 MG TABLET PO SCH (06:59)
[2017-02-17] MEDS: BETHANECHOL CHLORIDE 25 MG TABLET PO SCH ×3 (06:59→21:52)
[2017-02-17] MEDS: LORazepam 1 MG TABLET PO PRN ×2 (07:42→18:39)
--- NOTE | 2017-02-17 08:40 | PN ---
Progress Note, Physician History of Present Illness: HAD LUNG BIOPSY PNEUMOTHORAX--S/P PLEUREX CATH --CXR NO PNEUMOTHORAX - Current Medication List Current Medications: Active Medications Acetaminophen (Tylenol -) 650 mg PO Q6H PRN PRN Reason: FEVER OR PAIN Atorvastatin Calcium (Lipitor -) 10 mg PO HS [facility] Last Admin: 02/16/17 22:00 Dose: 10 mg Bethanechol Chloride (Urecholine -) 25 mg PO TID [facility] Last Admin: 02/17/17 06:59 Dose: 25 mg Budesonide/Formoterol Fumarate (Symbicort 160/4.5mcg -) 2 puff IH BID [facility] Last Admin: 02/16/17 22:00 Dose: 2 puff Diltiazem HCl (Cardizem Cd -) 120 mg PO DAILY [facility] Last Admin: 02/16/17 09:45 Dose: 120 mg Folic Acid (Folic Acid -) 1 mg PO DAILY [facility] Last Admin: 02/16/17 09:45 Dose: 1 mg Lorazepam (Ativan -) 1 mg PO BID PRN PRN Reason: ANXIETY Last Admin: 02/17/17 07:42 Dose: 1 mg Montelukast Sodium (Singulair -) 10 mg PO HS [facility] Last Admin: 02/16/17 22:00 Dose: 10 mg Morphine Sulfate (Morphine Sulfate) 1 mg IVPUSH Q4H PRN PRN Reason: PAIN Last Admin: 02/16/17 20:11 Dose: 1 mg Paroxetine HCl (Paxil -) 10 mg PO DAILY [facility] Last Admin: 02/16/17 09:49 Dose: 10 mg Polyethylene Glycol (Miralax (For Daily Use) -) 17 gm PO DAILY [facility] Last Admin: 02/16/17 09:50 Dose: Not Given Prednisone (Deltasone -) 40 mg PO DAILY [facility] Last Admin: 02/16/17 09:45 Dose: 40 mg Spironolactone (Aldactone -) 25 mg PO BID [facility] Last Admin: 02/16/17 22:00 Dose: 25 mg Tamsulosin HCl (Flomax -) 0.4 mg PO DAILY@0830 [facility] Last Admin: 02/16/17 08:10 Dose: 0.4 mg Thyroid ([place] Thyroid -) 60 mg PO DAILY@0700 [facility] Last Admin: 02/17/17 06:59 Dose: 60 mg - Objective Vital Signs: Vital Signs Temperature 98.7 F 02/17/17 06:33 Pulse Rate 78 02/17/17 06:33 Respiratory Rate 20 02/17/17 06:33 Blood Pressure 125/80 02/17/17 06:33 O2 Sat by Pulse Oximetry (%) 93 L 02/16/17 21:00 Cardiovascular: Yes: Regular Rate and Rhythm Respiratory: Yes: Diminished, Rhonchi, Wheezes Gastrointestinal: Yes: Normal Bowel Sounds, Soft Edema: No Labs: CBC, BMP 02/13/17 17:10 02/13/17 17:10 INR, PTT INR 1.04 (0.82-1.09) 02/04/17 09:53 Problem List - Problems (1) COPD (chronic obstructive pulmonary disease) Assessment/Plan: WHEEZING TODAY--IV STEROIDS CXR NEBS Code(s): J44.9 - CHRONIC OBSTRUCTIVE PULMONARY DISEASE, UNSPECIFIED Qualifiers: Emphysema type: unspecified (2) Constipation Assessment/Plan: RESOLVED DULCOLOX GIVEN--WITH GOOD RESULTS MIRALAX Code(s): K59.00 - CONSTIPATION, UNSPECIFIED (3) Hypothyroid Assessment/Plan: TSH--0.8 Code(s): E03.9 - HYPOTHYROIDISM, UNSPECIFIED (4) Mass of left lung Assessment/Plan: S/P BIOPSY --[place]ENO PET SCAN OUTPATIENT Code(s): R91.8 - OTHER NONSPECIFIC ABNORMAL FINDING OF LUNG FIELD (5) Urinary retention Code(s): R33.9 - RETENTION OF URINE, UNSPECIFIED (6) Pneumothorax after biopsy Assessment/Plan: PLEUREX IN PLACE CXR--RESOLVED Code(s): J95.811 - POSTPROCEDURAL PNEUMOTHORAX (7) Adenocarcinoma Assessment/Plan: PET SCAN OUTPATIENT Code(s): C80.1 - MALIGNANT (PRIMARY) NEOPLASM, UNSPECIFIED
[2017-02-17] MEDS: TAMSULOSIN HCL 0.4 MG CAP.ER.24H (FP) PO SCH (08:52)
[2017-02-17] MEDS ORDERED: ALBUTEROL SO4 2.5/IPRATROPIUM 0.5 INH SOL 3 ML VIAL.NEB. NEB ONE (08:57)
[2017-02-17] MEDS ORDERED: methylPREDNISolone NA SUCC 125 MG/2 ML VIAL IVPUSH ONE (09:00)
[2017-02-17 09:28] LABS: BASOPHIL 0.3 % (0-2.0); EOSINOPHIL 0.5 % (0-4.5); MCH 30.3 pg (25.7-33.7); MCHC 33.5 g/dl (32.0-36.0); MEAN CELL VOLUME 90.5 fl (80-96); MEAN PLT VOLUME 7.3 fl (7.5-11.1); NEUTROPHILS 80.8 % (42.8-82.8); PLATELET COUNT 191 K/MM3 (134-434); RDW 13.4 % (11.6-15.6); WHITE BLOOD COUNT 20.8 K/mm3 (4.0-10.0)
[2017-02-17 09:46] LABS: ALBUMIN 2.9 g/dl (3.4-5.0); ALK PHOS 53 U/L (45-117); ANION GAP 8 (8-16); BILIRUBIN,TOTAL 0.6 mg/dL (0.2-1.0); CALCIUM 7.9 mg/dL (8.5-10.1); CO2 26 mmol/L (21-32); CREATININE 0.9 mg/dL (0.55-1.02); GLUCOSE,RANDOM 174 mg/dL (74-106); SGOT/AST 9 U/L (15-37); SGPT/ALT 42 U/L (12-78); TOT PROT 5.7 g/dl (6.4-8.2)
[2017-02-17] MEDS: FOLIC ACID 1 MG TABLET (FP) PO SCH (09:53)
[2017-02-17] MEDS: predniSONE 20 MG TABLET (UD) PO SCH (09:53)
[2017-02-17] MEDS: SPIRONOLACTONE 25 MG TABLET (FP) PO SCH ×2 (09:53→21:52)
[2017-02-17] MEDS: PARoxetine HCL 10 MG TABLET (FP) PO SCH (09:55)
[2017-02-17] MEDS: BUDESONIDE/FORMETEROL FUMARATE 160/4.5 mcg INHALER IH SCH ×2 (09:57→21:52)
[2017-02-17] MEDS: POLYETHYLENE GLYCOL 3350 119 GM BTL PO SCH (09:57)
--- NOTE | 2017-02-17 10:48 | PN ---
Progress Note, Physician Chief Complaint: Chest tube taken out Coughing up blood Wheezing History of Present Illness: Patient was seen and examined. Awake and alert. Chart was reviewed Informed lung biopsy result with adenocarcinoma. Patient became very emotional and developed some wheezing Denies chest pain or palpitations - Current Medication List Current Medications: Active Medications Acetaminophen (Tylenol -) 650 mg PO Q6H PRN PRN Reason: FEVER OR PAIN Albuterol/Ipratropium (Duoneb -) 1 amp NEB QIDR [facility] Atorvastatin Calcium (Lipitor -) 10 mg PO HS [facility] Last Admin: 02/16/17 22:00 Dose: 10 mg Bethanechol Chloride (Urecholine -) 25 mg PO TID [facility] Last Admin: 02/17/17 06:59 Dose: 25 mg Budesonide/Formoterol Fumarate (Symbicort 160/4.5mcg -) 2 puff IH BID [facility] Last Admin: 02/17/17 09:57 Dose: 2 puff Diltiazem HCl (Cardizem Cd -) 120 mg PO DAILY [facility] Last Admin: 02/17/17 09:53 Dose: 120 mg Folic Acid (Folic Acid -) 1 mg PO DAILY [facility] Last Admin: 02/17/17 09:53 Dose: 1 mg Lorazepam (Ativan -) 1 mg PO BID PRN PRN Reason: ANXIETY Last Admin: 02/17/17 07:42 Dose: 1 mg Methylprednisolone Sodium Succinate (Solu-Medrol -) 40 mg IVPUSH Q6H-IV [facility] Montelukast Sodium (Singulair -) 10 mg PO [facility] Last Admin: 02/16/17 22:00 Dose: 10 mg Paroxetine HCl (Paxil -) 10 mg PO DAILY [facility] Last Admin: 02/17/17 09:55 Dose: 10 mg Polyethylene Glycol (Miralax (For Daily Use) -) 17 gm PO DAILY [facility] Last Admin: 02/17/17 09:57 Dose: 17 gm Prednisone (Deltasone -) 40 mg PO DAILY [facility] Last Admin: 02/17/17 09:53 Dose: 40 mg Spironolactone (Aldactone -) 25 mg PO BID [facility] Last Admin: 02/17/17 09:53 Dose: 25 mg Tamsulosin HCl (Flomax -) 0.4 mg PO DAILY@0830 [facility] Last Admin: 02/17/17 08:52 Dose: 0.4 mg Thyroid ([place] Thyroid -) 60 mg PO DAILY@0700 [facility] Last Admin: 02/17/17 06:59 Dose: 60 mg - Objective Vital Signs: Vital Signs Temperature 98.3 F 02/17/17 09:00 Pulse Rate 81 02/17/17 09:00 Respiratory Rate 22 02/17/17 09:00 Blood Pressure 126/69 02/17/17 09:00 O2 Sat by Pulse Oximetry (%) 93 L 02/16/17 21:00 Cardiovascular: Yes: Regular Rate and Rhythm, S1, S2 Respiratory: Yes: Diminished, Rhonchi Gastrointestinal: Yes: Normal Bowel Sounds, Soft. No: Tenderness Edema: No Additional Findings/Remarks: - Review of Systems Constitutional: denies: Chills, Fever Cardiovascular: reports: Shortness of Breath. denies: Chest Pain, Palpitations Respiratory: reports: Cough, SOB. denies: Hemoptysis, Orthopnea Gastrointestinal: denies: Bloating, Constipation. denies: Abdominal Pain, Diarrhea, Melena, Nausea, Rectal Bleeding, Vomiting Genitourinary: denies: Dysuria Neurological: denies: Dizziness, Headache, Seizure, Syncope, Weakness Endocrine: denies: Intolerance to Cold, Intolerance to Heat Labs: CBC, BMP 02/17/17 08:50 02/17/17 08:50 Problem List - Problems (1) HTN (hypertension) Code(s): I10 - ESSENTIAL (PRIMARY) HYPERTENSION Qualifiers: Hypertension type: essential hypertension Qualified Code(s): I10 - Essential (primary) hypertension (2) Hypercholesterolemia Code(s): E78.00 - PURE HYPERCHOLESTEROLEMIA, UNSPECIFIED (3) Diabetes mellitus Code(s): E11.9 - TYPE 2 DIABETES MELLITUS WITHOUT COMPLICATIONS Qualifiers: Diabetes mellitus type: type 2 Diabetes mellitus complication status: without complication Diabetes mellitus petroleum terminal plant operator insulin use: without petroleum terminal plant operator use Qualified Code(s): E11.9 - Type 2 diabetes mellitus without complications (4) ANA (obstructive sleep apnea) Code(s): G47.33 - OBSTRUCTIVE SLEEP APNEA (ADULT) (PEDIATRIC) (5) ASHD (arteriosclerotic heart disease) Code(s): I25.10 - ATHSCL HEART DISEASE OF [place] CORONARY ARTERY W/O ANG PCTRS (6) COPD (chronic obstructive pulmonary disease) Code(s): J44.9 - CHRONIC OBSTRUCTIVE PULMONARY DISEASE, UNSPECIFIED Qualifiers: Emphysema type: unspecified (7) COPD exacerbation Code(s): J44.1 - CHRONIC OBSTRUCTIVE PULMONARY DISEASE W (ACUTE) EXACERBATION (8) GERD (gastroesophageal reflux disease) Code(s): K21.9 - GASTRO-ESOPHAGEAL REFLUX DISEASE WITHOUT ESOPHAGITIS Qualifiers: Esophagitis presence: without esophagitis Qualified Code(s): K21.9 - Gastro -esophageal reflux disease without esophagitis (9) Hypothyroidism Code(s): E03.9 - HYPOTHYROIDISM, UNSPECIFIED Qualifiers: Hypothyroidism type: unspecified Qualified Code(s): E03.9 - Hypothyroidism , unspecified (10) Mass of left lung Code(s): R91.8 - OTHER NONSPECIFIC ABNORMAL FINDING OF LUNG FIELD (11) Shortness of breath Code(s): R06.02 - SHORTNESS OF BREATH (12) Adenocarcinoma of lung Code(s): C34.90 - MALIGNANT NEOPLASM OF UNSP PART OF UNSP BRONCHUS OR LUNG Qualifiers: Laterality: left Qualified Code(s): C34.92 - Malignant neoplasm of unspecified part of left bronchus or lung Assessment/Plan 1. Dyspnea with pulmonary nodule, moderately differentiated adenocarcinoma 2. COPD exacerbation 3. CAD - non-obstructive, angina pectoris 4. HTN/HCVD 5. Diastolic LV dysfunction 6. Hypercholesterolemia 7. NIDDM 8. Hypothyroidism 9. PVD 10. Anemia 11. Degenerative disc disease 12. OSAS PLAN: 1. Further malignancy work up for metastasis will be needed. Consult Oncology for further options and management 2. Continue Cardizem CD 3. Continue Atorvastatin 4. Continue Spironolactone 5. Steroid taper and inhaled bronchodilator Further plans are to follow. Wilton Lubin MD
--- NOTE | 2017-02-17 11:04 | PN ---
Progress Note, Physician History of Present Illness: pulmonary distraught about diagnosis ,c/o of hemoptysis since chest tube removed,less dyspneic. - Current Medication List Current Medications: Active Medications Acetaminophen (Tylenol -) 650 mg PO Q6H PRN PRN Reason: FEVER OR PAIN Albuterol/Ipratropium (Duoneb -) 1 amp NEB QIDR [facility] Atorvastatin Calcium (Lipitor -) 10 mg PO HS [facility] Last Admin: 02/16/17 22:00 Dose: 10 mg Bethanechol Chloride (Urecholine -) 25 mg PO TID [facility] Last Admin: 02/17/17 06:59 Dose: 25 mg Budesonide/Formoterol Fumarate (Symbicort 160/4.5mcg -) 2 puff IH BID [facility] Last Admin: 02/17/17 09:57 Dose: 2 puff Diltiazem HCl (Cardizem Cd -) 120 mg PO DAILY [facility] Last Admin: 02/17/17 09:53 Dose: 120 mg Folic Acid (Folic Acid -) 1 mg PO DAILY [facility] Last Admin: 02/17/17 09:53 Dose: 1 mg Lorazepam (Ativan -) 1 mg PO BID PRN PRN Reason: ANXIETY Last Admin: 02/17/17 07:42 Dose: 1 mg Methylprednisolone Sodium Succinate (Solu-Medrol -) 40 mg IVPUSH Q6H-IV [facility] Montelukast Sodium (Singulair -) 10 mg PO HS [facility] Last Admin: 02/16/17 22:00 Dose: 10 mg Paroxetine HCl (Paxil -) 10 mg PO DAILY [facility] Last Admin: 02/17/17 09:55 Dose: 10 mg Polyethylene Glycol (Miralax (For Daily Use) -) 17 gm PO DAILY [facility] Last Admin: 02/17/17 09:57 Dose: 17 gm Prednisone (Deltasone -) 40 mg PO DAILY [facility] Last Admin: 02/17/17 09:53 Dose: 40 mg Spironolactone (Aldactone -) 25 mg PO BID [facility] Last Admin: 02/17/17 09:53 Dose: 25 mg Tamsulosin HCl (Flomax -) 0.4 mg PO DAILY@0830 [facility] Last Admin: 02/17/17 08:52 Dose: 0.4 mg Thyroid ([place] Thyroid -) 60 mg PO DAILY@0700 [facility] Last Admin: 02/17/17 06:59 Dose: 60 mg - Objective Vital Signs: Vital Signs Temperature 98.3 F 02/17/17 09:00 Pulse Rate 81 02/17/17 09:00 Respiratory Rate 22 02/17/17 09:00 Blood Pressure 126/69 02/17/17 09:00 O2 Sat by Pulse Oximetry (%) 93 L 02/16/17 21:00 Constitutional: Yes: Well Nourished, Anxious Eyes: Yes: WNL HENT: Yes: WNL Neck: Yes: WNL Cardiovascular: Yes: Regular Rate and Rhythm, S1, S2 Respiratory: Yes: Wheezes (few scattered wheezes) Extremities: Yes: WNL Edema: No Labs: CBC, BMP 02/17/17 08:50 02/17/17 08:50 INR, PTT INR 1.04 (0.82-1.09) 02/04/17 09:53 - ....Imaging Chest X-ray: Report Reviewed, Image Reviewed Problem List - Problems (1) Shortness of breath Code(s): R06.02 - SHORTNESS OF BREATH (2) COPD (chronic obstructive pulmonary disease) Code(s): J44.9 - CHRONIC OBSTRUCTIVE PULMONARY DISEASE, UNSPECIFIED Qualifiers: Emphysema type: unspecified (3) COPD exacerbation Code(s): J44.1 - CHRONIC OBSTRUCTIVE PULMONARY DISEASE W (ACUTE) EXACERBATION (4) Mass of left lung Code(s): R91.8 - OTHER NONSPECIFIC ABNORMAL FINDING OF LUNG FIELD (5) Abdominal distension Code(s): R14.0 - ABDOMINAL DISTENSION (GASEOUS) (6) GERD (gastroesophageal reflux disease) Code(s): K21.9 - GASTRO-ESOPHAGEAL REFLUX DISEASE WITHOUT ESOPHAGITIS Qualifiers: Esophagitis presence: without esophagitis Qualified Code(s): K21.9 - Gastro -esophageal reflux disease without esophagitis (7) Hypothyroid Code(s): E03.9 - HYPOTHYROIDISM, UNSPECIFIED (8) ASHD (arteriosclerotic heart disease) Code(s): I25.10 - ATHSCL HEART DISEASE OF [place] CORONARY ARTERY W/O ANG PCTRS Assessment/Plan IMP COPD EXACERBATION IMPROVED CONRAD MASS MALIGNANT ADENO CA L PTX S/P BX ABDOMINAL DISTENTION ASHD OSAS ON CPAP HTN GERD PULMONARY HTN HEMOPTYSIS SECONDARY TO RECENTBX PLAN PREDNISONE 40mg INHALED BRONCHODILATORS O2 PET SCAN OUT PATIENT QUANTIFY HEMOPTYSIS METASTATIC W/U OUTPATIENT DR DENISE Problem List - Problems (1) Shortness of breath Code(s): R06.02 - SHORTNESS OF BREATH (2) COPD (chronic obstructive pulmonary disease) Code(s): J44.9 - CHRONIC OBSTRUCTIVE PULMONARY DISEASE, UNSPECIFIED Qualifiers: Emphysema type: unspecified (3) COPD exacerbation Code(s): J44.1 - CHRONIC OBSTRUCTIVE PULMONARY DISEASE W (ACUTE) EXACERBATION (4) Mass of left lung Code(s): R91.8 - OTHER NONSPECIFIC ABNORMAL FINDING OF LUNG FIELD (5) Abdominal distension Code(s): R14.0 - ABDOMINAL DISTENSION (GASEOUS) (6) GERD (gastroesophageal reflux disease) Code(s): K21.9 - GASTRO-ESOPHAGEAL REFLUX DISEASE WITHOUT ESOPHAGITIS (7) Hypothyroid Code(s): E03.9 - HYPOTHYROIDISM, UNSPECIFIED (8) ASHD (arteriosclerotic heart disease) Code(s): I25.10 - ATHSCL HEART DISEASE OF [place] CORONARY ARTERY W/O ANG PCTRS
[2017-02-17] MEDS: ALBUTEROL SO4 2.5/IPRATROPIUM 0.5 INH SOL 3 ML VIAL.NEB. NEB SCH ×3 (14:48→23:13)
[2017-02-17] MEDS: methylPREDNISolone NA SUCC 40 MG/1 ML VIAL IVPUSH SCH ×2 (15:05→21:52)
--- NOTE | 2017-02-17 19:55 | CONSULT ---
Consult - text type - Consultation Consultation Note: Patient is a 61 year old female with underlying history of coronary artery disease, non-obstructive, angina pectoris, diastolic left ventricular dysfunction with class 0 NYHA classification heart failure, redundant mitral valve leaflet with mild mitral valve regurgitation, hypertension, NIDDM, hypercholesterolemia and PVD. Patient also has history of hypothyroidism, degenerative disc disease, OSAS and GERD. - History Source History Provided By: Patient, Medical Record - Past Medical History Cardio/Vascular: Yes: CAD, CHF, HTN, Hyperlipdemia Gastrointestinal: Yes: GERD Heme/Onc: Yes: Anemia Endocrine: Yes: Diabetes Mellitus, Hypothyroidism - Smoking History Smoking history: Current every day smoker Home Medications - Allergies Allergies/Adverse Reactions: Allergies Allergy/AdvReac Type Severity Reaction Status Date / Time pistachio nut Allergy Verified 02/04/17 09:12 shrimp Allergy Verified 02/04/17 09:12 tree and shrub pollen Allergy Verified 02/04/17 09:12 tree pollen Allergy Uncoded 02/04/17 09:12 - Home Medications Home Medications: Ambulatory Orders Atorvastatin Ca [Lipitor] 20 mg PO HS 02/04/17 Cyanocobalamin (Vitamin B-12) [B-12] 500 mcg PO WEEKLY 02/04/17 Desloratadine/Pseudoephedrine [Clarinex-D 12 Hour Tablet] 1 each PO DAILY Diltiazem Cd [Cardizem Cd -] 120 mg PO DAILY 02/04/17 Folic Acid 1 mg PO DAILY 02/04/17 Mesalamine 1.2 gm PO ASDIR 02/04/17 Montelukast Na [Singulair -] 10 mg PO HS 02/04/17 Paroxetine HCl [Paxil] 20 mg PO DAILY 02/04/17 Spironolactone [Aldactone] 25 mg PO DAILY 02/04/17 Thyroid [[place] Thyroid] 60 mg PO DAILY 02/04/17 Valsartan/Hydrochlorothiazide [Valsartan-Hctz 160-12.5 mg Tab] 1 each PO DAILY 02/04/17 Last Vital Signs Temp Pulse Resp BP Pulse Ox 98.2 F 71 20 107/57 97 02/17/17 20:53 02/17/17 20:53 02/17/17 20:53 02/17/17 20:53 02/17/17 20:49 Neck: Yes: Supple Respiratory: Yes: Diminished Gastrointestinal: Yes: Normal Bowel Sounds, Soft. Cardiovascular: Yes: Regular Rate and Rhythm Heart Sounds: Yes: S1, S2 Murmur: Yes: Systolic Murmur, Grade 1 Abnormal Lab Results 02/17/17 02/17/17 08:50 08:50 WBC 20.8 H MPV 7.3 L BUN 22 H D Random Glucose 174 H D Calcium 7.9 L AST 9 L D Total Protein 5.7 L Albumin 2.9 L Problem List - Problems (1) HTN (hypertension) Code(s): I10 - ESSENTIAL (PRIMARY) HYPERTENSION Qualifiers: Hypertension type: essential hypertension Qualified Code(s): I10 - Essential (primary) hypertension (2) Hypercholesterolemia Code(s): E78.00 - PURE HYPERCHOLESTEROLEMIA, UNSPECIFIED (3) Diabetes mellitus Code(s): E11.9 - TYPE 2 DIABETES MELLITUS WITHOUT COMPLICATIONS Qualifiers: Diabetes mellitus type: type 2 Diabetes mellitus complication status: without complication Diabetes mellitus senior care insulin use: without automatic pinsetter adjuster use Qualified Code(s): E11.9 - Type 2 diabetes mellitus without complications (4) ANA (obstructive sleep apnea) Code(s): G47.33 - OBSTRUCTIVE SLEEP APNEA (ADULT) (PEDIATRIC) (5) ASHD (arteriosclerotic heart disease) Code(s): I25.10 - ATHSCL HEART DISEASE OF [place] CORONARY ARTERY W/O ANG PCTRS (6) COPD (chronic obstructive pulmonary disease) Code(s): J44.9 - CHRONIC OBSTRUCTIVE PULMONARY DISEASE, UNSPECIFIED Qualifiers: Emphysema type: unspecified (7) COPD exacerbation Code(s): J44.1 - CHRONIC OBSTRUCTIVE PULMONARY DISEASE W (ACUTE) EXACERBATION (8) GERD (gastroesophageal reflux disease) Code(s): K21.9 - GASTRO-ESOPHAGEAL REFLUX DISEASE WITHOUT ESOPHAGITIS Qualifiers: Esophagitis presence: without esophagitis Qualified Code(s): K21.9 - Gastro -esophageal reflux disease without esophagitis (9) Hypothyroidism Code(s): E03.9 - HYPOTHYROIDISM, UNSPECIFIED Qualifiers: Hypothyroidism type: unspecified Qualified Code(s): E03.9 - Hypothyroidism , unspecified (10) Mass of left lung Code(s): R91.8 - OTHER NONSPECIFIC ABNORMAL FINDING OF LUNG FIELD (11) Shortness of breath Code(s): R06.02 - SHORTNESS OF BREATH Assessment/Plan 1. COPD 2. CAD - non-obstructive, angina pectoris 3. HTN/HCVD 4. Diastolic LV dysfunction 5. Hypercholesterolemia 6. NIDDM 7. Hypothyroidism 8. PVD 9. Anemia 10. Degenerative disc disease 11. OSAS 61 y/o female with 1.8cm LULmass, 3.2cm AP window mass, suggestive of necrotic lymph node, Lt. hilar adenopathy biopsy of CONRAD mass c/w pumonary adeoca BX complicated by pneumothorax now MRI brain with solitary 1.4cm midbrain hemorrhagic mass stage IV adeno ca of lung---solitary brain lesion--will discuss with neurosurgery/rad-onc
[2017-02-17] MEDS: MONTELUKAST NA 10 MG TABLET PO SCH (21:52)
[2017-02-17] MEDS: ATORVASTATIN CA 10 MG TABLET (FP) PO SCH (21:52)
--- NOTE | 2017-02-18 02:07 | PN ---
Progress Note (short form) - Note Progress Note: discussed case with patient and family to have oncology and workup for malignancy finding noted mri lesion brain,and probable mets as additional concern Current Active Problems ASHD (arteriosclerotic heart disease) (Acute) Abdominal distension (Acute) Adenocarcinoma (Acute) Adenocarcinoma of left lung (Acute) Adenocarcinoma of lung (Acute) COPD (chronic obstructive pulmonary disease) (Acute) COPD exacerbation (Acute) Constipation (Acute) Diabetes mellitus (Acute) Epistaxis (Acute) GERD (gastroesophageal reflux disease) (Acute) HTN (hypertension) (Acute) Hoarseness (Acute) Hypercholesterolemia (Acute) Hypothyroid (Acute) Hypothyroidism (Acute) Mass of left lung (Acute) ANA (obstructive sleep apnea) (Acute) Pneumothorax after biopsy (Acute) Shortness of breath (Acute) Urinary retention (Acute) abrain lesion mri mass suspect mets Abnormal Lab Results 02/17/17 02/17/17 08:50 08:50 WBC 20.8 H MPV 7.3 L BUN 22 H D Random Glucose 174 H D Calcium 7.9 L AST 9 L D Total Protein 5.7 L Albumin 2.9 L Laboratory Results - last 24 hr 02/17/17 02/17/17 08:50 08:50 WBC 20.8 H RBC 4.74 Hgb 14.3 Hct 42.9 MCV 90.5 MCH 30.3 MCHC 33.5 RDW 13.4 Plt Count 191 D MPV 7.3 L Neutrophils % 80.8 Lymphocytes % 14.1 D Monocytes % 4.3 Eosinophils % 0.5 D Basophils % 0.3 Sodium 136 Potassium 3.8 D Chloride 102 Carbon Dioxide 26 Anion Gap 8 BUN 22 H D Creatinine 0.9 Creat Clearance w eGFR > 60 Random Glucose 174 H D Calcium 7.9 L Total Bilirubin 0.6 AST 9 L D ALT 42 D Alkaline Phosphatase 53 Total Protein 5.7 L Albumin 2.9 L plan: follow up with oncology plans pet scan and possible ns opinion Problem List - Problems (1) Hypothyroidism Code(s): E03.9 - HYPOTHYROIDISM, UNSPECIFIED Qualifiers: Hypothyroidism type: unspecified Qualified Code(s): E03.9 - Hypothyroidism , unspecified (2) ASHD (arteriosclerotic heart disease) Code(s): I25.10 - ATHSCL HEART DISEASE OF [place] CORONARY ARTERY W/O ANG PCTRS (3) Abdominal distension Code(s): R14.0 - ABDOMINAL DISTENSION (GASEOUS) (4) COPD (chronic obstructive pulmonary disease) Code(s): J44.9 - CHRONIC OBSTRUCTIVE PULMONARY DISEASE, UNSPECIFIED Qualifiers: Emphysema type: unspecified (5) GERD (gastroesophageal reflux disease) Code(s): K21.9 - GASTRO-ESOPHAGEAL REFLUX DISEASE WITHOUT ESOPHAGITIS Qualifiers: Esophagitis presence: without esophagitis Qualified Code(s): K21.9 - Gastro -esophageal reflux disease without esophagitis (6) Hypothyroid Code(s): E03.9 - HYPOTHYROIDISM, UNSPECIFIED (7) Mass of left lung Code(s): R91.8 - OTHER NONSPECIFIC ABNORMAL FINDING OF LUNG FIELD
[2017-02-18] MEDS: methylPREDNISolone NA SUCC 40 MG/1 ML VIAL IVPUSH SCH ×2 (03:30→12:58)
[2017-02-18] MEDS: BETHANECHOL CHLORIDE 25 MG TABLET PO SCH ×3 (06:04→21:26)
[2017-02-18] MEDS: THYROID 60 MG TABLET PO SCH (06:05)
[2017-02-18] MEDS: ALBUTEROL SO4 2.5/IPRATROPIUM 0.5 INH SOL 3 ML VIAL.NEB. NEB SCH ×4 (06:33→23:13)
[2017-02-18 07:04] LABS: MCH 30.3 pg (25.7-33.7); MCHC 33.3 g/dl (32.0-36.0); MEAN PLT VOLUME 7.5 fl (7.5-11.1); PLATELET COUNT 200 K/MM3 (134-434); RDW 13.5 % (11.6-15.6); WHITE BLOOD COUNT 21.6 K/mm3 (4.0-10.0)
[2017-02-18 07:09] LABS: ALBUMIN 3.2 g/dl (3.4-5.0); ANION GAP 7 (8-16); CALCIUM 8.6 mg/dL (8.5-10.1); CO2 29 mmol/L (21-32); GLUCOSE,RANDOM 137 mg/dL (74-106)
[2017-02-18 07:13] LABS: ALK PHOS 49 U/L (45-117); BILIRUBIN,TOTAL 0.6 mg/dL (0.2-1.0); CREATININE 0.7 mg/dL (0.55-1.02); SGOT/AST 10 U/L (15-37); SGPT/ALT 49 U/L (12-78); TOT PROT 6.2 g/dl (6.4-8.2)
--- NOTE | 2017-02-18 08:10 | PN ---
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
[2017-02-18] MEDS ORDERED: PT OWN MED DRAWER 7, Y5N ONE ×2 (08:35→09:17)
[2017-02-18] MEDS: PARoxetine HCL 10 MG TABLET (FP) PO SCH (09:20)
[2017-02-18] MEDS: SPIRONOLACTONE 25 MG TABLET (FP) PO SCH ×2 (09:20→21:26)
[2017-02-18] MEDS: FOLIC ACID 1 MG TABLET (FP) PO SCH (09:20)
[2017-02-18] MEDS: TAMSULOSIN HCL 0.4 MG CAP.ER.24H (FP) PO SCH (09:20)
[2017-02-18] MEDS: POLYETHYLENE GLYCOL 3350 119 GM BTL PO SCH (09:20)
[2017-02-18] MEDS: BUDESONIDE/FORMETEROL FUMARATE 160/4.5 mcg INHALER IH SCH ×2 (09:22→21:27)
[2017-02-18 09:33] LABS: TOTAL CELLS COUNTED 100
[2017-02-18 09:34] LABS: PLATELET ESTIMATE ADEQUATE
--- NOTE | 2017-02-18 09:35 | PN ---
Progress Note, Physician History of Present Illness: Dyspnea and post-biopsy hemoptysis improved, upset about news of possible brain mets. Does not want to be evaluated now. - Current Medication List Current Medications: Active Medications Acetaminophen (Tylenol -) 650 mg PO Q6H PRN PRN Reason: FEVER OR PAIN Albuterol/Ipratropium (Duoneb -) 1 amp NEB QIDR [facility] Last Admin: 02/18/17 06:33 Dose: 1 amp Atorvastatin Calcium (Lipitor -) 10 mg PO HS [facility] Last Admin: 02/17/17 21:52 Dose: 10 mg Bethanechol Chloride (Urecholine -) 25 mg PO TID [facility] Last Admin: 02/18/17 06:04 Dose: 25 mg Budesonide/Formoterol Fumarate (Symbicort 160/4.5mcg -) 2 puff IH BID [facility] Last Admin: 02/18/17 09:22 Dose: 2 puff Diltiazem HCl (Cardizem Cd -) 120 mg PO DAILY [facility] Last Admin: 02/18/17 09:20 Dose: 120 mg Folic Acid (Folic Acid -) 1 mg PO DAILY [facility] Last Admin: 02/18/17 09:20 Dose: 1 mg Lorazepam (Ativan -) 1 mg PO BID PRN PRN Reason: ANXIETY Last Admin: 02/17/17 18:39 Dose: 1 mg Methylprednisolone Sodium Succinate (Solu-Medrol -) 40 mg IVPUSH Q6H-IV [facility] Last Admin: 02/18/17 03:30 Dose: 40 mg Montelukast Sodium (Singulair -) 10 mg PO HS [facility] Last Admin: 02/17/17 21:52 Dose: 10 mg Paroxetine HCl (Paxil -) 10 mg PO DAILY [facility] Last Admin: 02/18/17 09:20 Dose: 10 mg Polyethylene Glycol (Miralax (For Daily Use) -) 17 gm PO DAILY [facility] Last Admin: 02/18/17 09:20 Dose: 17 gm Prednisone (Deltasone -) 40 mg PO DAILY [facility] Last Admin: 02/17/17 09:53 Dose: 40 mg Spironolactone (Aldactone -) 25 mg PO BID [facility] Last Admin: 02/18/17 09:20 Dose: 25 mg Tamsulosin HCl (Flomax -) 0.4 mg PO DAILY@0830 [facility] Last Admin: 02/18/17 09:20 Dose: 0.4 mg Thyroid ([place] Thyroid -) 60 mg PO DAILY@0700 [facility] Last Admin: 02/18/17 06:05 Dose: 60 mg - Objective Vital Signs: Vital Signs Temperature 97.8 F 02/18/17 06:01 Pulse Rate 74 02/18/17 06:01 Respiratory Rate 20 02/18/17 06:01 Blood Pressure 120/72 02/18/17 06:01 O2 Sat by Pulse Oximetry (%) 97 02/17/17 20:49 Constitutional: Yes: Anxious, Mild Distress Respiratory: Yes: On Nasal O2 Labs: CBC, BMP 02/18/17 06:25 02/18/17 06:25 INR, PTT INR 1.04 (0.82-1.09) 02/04/17 09:53 - ....Imaging MRI: Report Reviewed (Left midbrain lesion suggestive of mets) EKG: Report Reviewed (Tele: NSR without events) Problem List - Problems (1) ASHD (arteriosclerotic heart disease) Code(s): I25.10 - ATHSCL HEART DISEASE OF [place] CORONARY ARTERY W/O ANG PCTRS (2) COPD exacerbation Code(s): J44.1 - CHRONIC OBSTRUCTIVE PULMONARY DISEASE W (ACUTE) EXACERBATION (3) Diabetes mellitus Code(s): E11.9 - TYPE 2 DIABETES MELLITUS WITHOUT COMPLICATIONS Qualifiers: Diabetes mellitus type: type 2 Diabetes mellitus complication status: without complication Diabetes mellitus equipment operator intermodal yard insulin use: without equipment operator intermodal yard use Qualified Code(s): E11.9 - Type 2 diabetes mellitus without complications (4) HTN (hypertension) Code(s): I10 - ESSENTIAL (PRIMARY) HYPERTENSION Qualifiers: Hypertension type: essential hypertension Qualified Code(s): I10 - Essential (primary) hypertension (5) Hypercholesterolemia Code(s): E78.00 - PURE HYPERCHOLESTEROLEMIA, UNSPECIFIED (6) Hypothyroidism Code(s): E03.9 - HYPOTHYROIDISM, UNSPECIFIED Qualifiers: Hypothyroidism type: unspecified Qualified Code(s): E03.9 - Hypothyroidism , unspecified (7) ANA (obstructive sleep apnea) Code(s): G47.33 - OBSTRUCTIVE SLEEP APNEA (ADULT) (PEDIATRIC) (8) Shortness of breath Code(s): R06.02 - SHORTNESS OF BREATH (9) Adenocarcinoma of left lung Code(s): C34.92 - MALIGNANT NEOPLASM OF UNSP PART OF LEFT BRONCHUS OR LUNG (10) Metastatic adenocarcinoma to brain Code(s): C79.31 - SECONDARY MALIGNANT NEOPLASM OF BRAIN (11) Hemoptysis Code(s): R04.2 - HEMOPTYSIS Assessment/Plan 1. Dyspnea with pulmonary nodule, moderately differentiated adenocarcinoma and likely brain mets 2. COPD exacerbation improving 3. CAD - non-obstructive, angina pectoris 4. HTN/HCVD 5. Diastolic LV dysfunction 6. Hypercholesterolemia 7. NIDDM 8. Hypothyroidism 9. PVD 10. Anemia 11. Degenerative disc disease 12. OSAS PLAN: 1. Neurosurgery and oncology input appreciated 2. Continue Cardizem CD 120 qd 3. Continue Atorvastatin 10 qhs 4. Continue Spironolactone 25 bid 5. IV steroid (d/c prednisone), Singulair and inhaled bronchodilator, O2 as needed
--- NOTE | 2017-02-18 10:48 | PN ---
Progress Note (short form) - Note Progress Note: Radiation Oncology Came to see pt but she asked me to leave, wishes to speak with only Dr. Atwood. Will return when pt agreeable.
--- NOTE | 2017-02-18 11:25 | PN ---
Progress Note, Physician History of Present Illness: PULMONARY ALERT,CRYING,INFORMED ABOUT DIAGNOSIS WITH SCANNING TECH MET. - Current Medication List Current Medications: Active Medications Acetaminophen (Tylenol -) 650 mg PO Q6H PRN PRN Reason: FEVER OR PAIN Albuterol/Ipratropium (Duoneb -) 1 amp NEB QIDR [facility] Last Admin: 02/18/17 06:33 Dose: 1 amp Atorvastatin Calcium (Lipitor -) 10 mg PO HS [facility] Last Admin: 02/17/17 21:52 Dose: 10 mg Bethanechol Chloride (Urecholine -) 25 mg PO TID [facility] Last Admin: 02/18/17 06:04 Dose: 25 mg Budesonide/Formoterol Fumarate (Symbicort 160/4.5mcg -) 2 puff IH BID [facility] Last Admin: 02/18/17 09:22 Dose: 2 puff Diltiazem HCl (Cardizem Cd -) 120 mg PO DAILY [facility] Last Admin: 02/18/17 09:20 Dose: 120 mg Folic Acid (Folic Acid -) 1 mg PO DAILY [facility] Last Admin: 02/18/17 09:20 Dose: 1 mg Lorazepam (Ativan -) 1 mg PO BID PRN PRN Reason: ANXIETY Last Admin: 02/17/17 18:39 Dose: 1 mg Methylprednisolone Sodium Succinate (Solu-Medrol -) 40 mg IVPUSH Q6H-IV [facility] Last Admin: 02/18/17 03:30 Dose: 40 mg Montelukast Sodium (Singulair -) 10 mg PO HS [facility] Last Admin: 02/17/17 21:52 Dose: 10 mg Paroxetine HCl (Paxil -) 10 mg PO DAILY [facility] Last Admin: 02/18/17 09:20 Dose: 10 mg Polyethylene Glycol (Miralax (For Daily Use) -) 17 gm PO DAILY [facility] Last Admin: 02/18/17 09:20 Dose: 17 gm Prednisone (Deltasone -) 40 mg PO DAILY [facility] Last Admin: 02/17/17 09:53 Dose: 40 mg Spironolactone (Aldactone -) 25 mg PO BID [facility] Last Admin: 02/18/17 09:20 Dose: 25 mg Tamsulosin HCl (Flomax -) 0.4 mg PO DAILY@0830 [facility] Last Admin: 02/18/17 09:20 Dose: 0.4 mg Thyroid ([place] Thyroid -) 60 mg PO DAILY@0700 [facility] Last Admin: 02/18/17 06:05 Dose: 60 mg - Objective Vital Signs: Vital Signs Temperature 97.8 F 02/18/17 06:01 Pulse Rate 74 02/18/17 06:01 Respiratory Rate 20 02/18/17 06:01 Blood Pressure 120/72 02/18/17 06:01 O2 Sat by Pulse Oximetry (%) 97 02/17/17 20:49 Constitutional: Yes: Well Nourished, Other (DISTRAUGHT) Eyes: Yes: WNL HENT: Yes: WNL Neck: Yes: WNL Cardiovascular: Yes: Regular Rate and Rhythm, S1, S2 Respiratory: Yes: Wheezes (SCATTERED ANDRE WHEEZES) Gastrointestinal: Yes: Normal Bowel Sounds, Soft Extremities: Yes: WNL Edema: No Labs: CBC, BMP 02/18/17 06:25 02/18/17 06:25 INR, PTT INR 1.04 (0.82-1.09) 02/04/17 09:53 - ....Imaging MRI: Report Reviewed Problem List - Problems (1) Shortness of breath Code(s): R06.02 - SHORTNESS OF BREATH (2) COPD (chronic obstructive pulmonary disease) Code(s): J44.9 - CHRONIC OBSTRUCTIVE PULMONARY DISEASE, UNSPECIFIED Qualifiers: Emphysema type: unspecified (3) COPD exacerbation Code(s): J44.1 - CHRONIC OBSTRUCTIVE PULMONARY DISEASE W (ACUTE) EXACERBATION (4) Mass of left lung Code(s): R91.8 - OTHER NONSPECIFIC ABNORMAL FINDING OF LUNG FIELD (5) Abdominal distension Code(s): R14.0 - ABDOMINAL DISTENSION (GASEOUS) (6) GERD (gastroesophageal reflux disease) Code(s): K21.9 - GASTRO-ESOPHAGEAL REFLUX DISEASE WITHOUT ESOPHAGITIS Qualifiers: Esophagitis presence: without esophagitis Qualified Code(s): K21.9 - Gastro -esophageal reflux disease without esophagitis (7) Hypothyroid Code(s): E03.9 - HYPOTHYROIDISM, UNSPECIFIED (8) ASHD (arteriosclerotic heart disease) Code(s): I25.10 - ATHSCL HEART DISEASE OF [place] CORONARY ARTERY W/O ANG PCTRS Assessment/Plan IMP COPD EXACERBATION IMPROVED LUNG CA ADENO WITH SOLITARY SCANNING TECH MET L PTX S/P BX ASHD OSAS ON CPAP HTN GERD PULMONARY HTN HEMOPTYSIS SECONDARY TO RECENT BX RESOLVING PLAN STEROIDS INHALED BRONCHODILATORS O2 PET SCAN OUT PATIENT METASTATIC W/U OUTPATIENT DR DENISE Problem List - Problems (1) Shortness of breath Code(s): R06.02 - SHORTNESS OF BREATH (2) COPD (chronic obstructive pulmonary disease) Code(s): J44.9 - CHRONIC OBSTRUCTIVE PULMONARY DISEASE, UNSPECIFIED Qualifiers: Emphysema type: unspecified (3) COPD exacerbation Code(s): J44.1 - CHRONIC OBSTRUCTIVE PULMONARY DISEASE W (ACUTE) EXACERBATION (4) Mass of left lung Code(s): R91.8 - OTHER NONSPECIFIC ABNORMAL FINDING OF LUNG FIELD (5) Abdominal distension Code(s): R14.0 - ABDOMINAL DISTENSION (GASEOUS) (6) GERD (gastroesophageal reflux disease) Code(s): K21.9 - GASTRO-ESOPHAGEAL REFLUX DISEASE WITHOUT ESOPHAGITIS (7) Hypothyroid Code(s): E03.9 - HYPOTHYROIDISM, UNSPECIFIED (8) ASHD (arteriosclerotic heart disease) Code(s): I25.10 - ATHSCL HEART DISEASE OF [place] CORONARY ARTERY W/O ANG PCTRS
[2017-02-18] MEDS: diazePAM 5 MG TABLET PO PRN ×2 (12:57→18:50)
--- NOTE | 2017-02-18 18:15 | PN ---
Progress Note, Physician History of Present Illness: Doesn't want to see anyone at the moment, just been told that her cancer might have spread to her brain. 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 MRI confirmed brain lesion - Current Medication List Current Medications: Active Medications Acetaminophen (Tylenol -) 650 mg PO Q6H PRN PRN Reason: FEVER OR PAIN Albuterol/Ipratropium (Duoneb -) 1 amp NEB QIDR [facility] Last Admin: 02/18/17 10:50 Dose: 1 amp Atorvastatin Calcium (Lipitor -) 10 mg PO HS [facility] Last Admin: 02/17/17 21:52 Dose: 10 mg Bethanechol Chloride (Urecholine -) 25 mg PO TID [facility] Last Admin: 02/18/17 06:04 Dose: 25 mg Budesonide/Formoterol Fumarate (Symbicort 160/4.5mcg -) 2 puff IH BID [facility] Last Admin: 02/18/17 09:22 Dose: 2 puff Diazepam (Valium -) 5 mg PO Q6H PRN PRN Reason: WITHDRAWAL(CONT SUBST) Last Admin: 02/18/17 12:57 Dose: 5 mg Diltiazem HCl (Cardizem Cd -) 120 mg PO DAILY [facility] Last Admin: 02/18/17 09:20 Dose: 120 mg Folic Acid (Folic Acid -) 1 mg PO DAILY [facility] Last Admin: 02/18/17 09:20 Dose: 1 mg Methylprednisolone Sodium Succinate (Solu-Medrol -) 40 mg IVPUSH Q12H [facility] Last Admin: 02/18/17 12:58 Dose: 40 mg Montelukast Sodium (Singulair -) 10 mg PO HS [facility] Last Admin: 02/17/17 21:52 Dose: 10 mg Paroxetine HCl (Paxil -) 10 mg PO DAILY [facility] Last Admin: 02/18/17 09:20 Dose: 10 mg Polyethylene Glycol (Miralax (For Daily Use) -) 17 gm PO DAILY [facility] Last Admin: 02/18/17 09:20 Dose: 17 gm Spironolactone (Aldactone -) 25 mg PO BID [facility] Last Admin: 02/18/17 09:20 Dose: 25 mg Tamsulosin HCl (Flomax -) 0.4 mg PO DAILY@0830 [facility] Last Admin: 02/18/17 09:20 Dose: 0.4 mg Thyroid ([place] Thyroid -) 60 mg PO DAILY@0700 [facility] Last Admin: 02/18/17 06:05 Dose: 60 mg - Objective Vital Signs: Vital Signs Temperature 97.7 F 02/18/17 17:00 Pulse Rate 66 02/18/17 17:00 Respiratory Rate 20 02/18/17 17:00 Blood Pressure 139/89 02/18/17 17:00 O2 Sat by Pulse Oximetry (%) 96 02/18/17 10:40 Neurological: Yes: Alert Psychiatric: Yes: Alert Labs: CBC, BMP 02/18/17 06:25 02/18/17 06:25 INR, PTT INR 1.04 (0.82-1.09) 02/04/17 09:53 Problem List - Problems (1) Adenocarcinoma of left lung Assessment/Plan: -confirmed by biopsy -seen by oncology -didn't want to see radiation oncologist -seen by outpatient PCP Dr Atwood Code(s): C34.92 - MALIGNANT NEOPLASM OF UNSP PART OF LEFT BRONCHUS OR LUNG (2) Metastatic adenocarcinoma to brain Assessment/Plan: -confirmed by MRI -further planning pending Code(s): C79.31 - SECONDARY MALIGNANT NEOPLASM OF BRAIN (3) COPD exacerbation Assessment/Plan: -IV steroids -neb tx -seen by Pulmonary Code(s): J44.1 - CHRONIC OBSTRUCTIVE PULMONARY DISEASE W (ACUTE) EXACERBATION (4) Constipation Assessment/Plan: -resolved -on Miralax Code(s): K59.00 - CONSTIPATION, UNSPECIFIED (5) Pneumothorax after biopsy Assessment/Plan: -post lung biopsy -Chest tube removed yesterday Code(s): J95.811 - POSTPROCEDURAL PNEUMOTHORAX (6) Urinary retention Assessment/Plan: -improved -on Tamsulosin Code(s): R33.9 - RETENTION OF URINE, UNSPECIFIED Assessment/Plan see problem list
[2017-02-18] MEDS: ATORVASTATIN CA 10 MG TABLET (FP) PO SCH (21:26)
[2017-02-18] MEDS: MONTELUKAST NA 10 MG TABLET PO SCH (21:26)
[2017-02-19] MEDS: methylPREDNISolone NA SUCC 40 MG/1 ML VIAL IVPUSH SCH ×2 (00:35→12:05)
[2017-02-19] MEDS: diazePAM 5 MG TABLET PO PRN ×3 (00:42→20:03)
[2017-02-19] MEDS: THYROID 60 MG TABLET PO SCH (06:23)
[2017-02-19] MEDS: BETHANECHOL CHLORIDE 25 MG TABLET PO SCH ×3 (06:23→21:33)
[2017-02-19] MEDS: ALBUTEROL SO4 2.5/IPRATROPIUM 0.5 INH SOL 3 ML VIAL.NEB. NEB SCH ×5 (06:50→23:18)
[2017-02-19] MEDS ORDERED: PT OWN MED DRAWER 7, Y5N ONE (09:07)
[2017-02-19] MEDS: TAMSULOSIN HCL 0.4 MG CAP.ER.24H (FP) PO SCH (09:15)
[2017-02-19] MEDS: POLYETHYLENE GLYCOL 3350 119 GM BTL PO SCH (09:15)
[2017-02-19] MEDS: FOLIC ACID 1 MG TABLET (FP) PO SCH (09:15)
[2017-02-19] MEDS: SPIRONOLACTONE 25 MG TABLET (FP) PO SCH ×2 (09:15→21:33)
[2017-02-19] MEDS: PARoxetine HCL 10 MG TABLET (FP) PO SCH (09:16)
[2017-02-19] MEDS: BUDESONIDE/FORMETEROL FUMARATE 160/4.5 mcg INHALER IH SCH ×2 (09:16→21:33)
--- NOTE | 2017-02-19 10:52 | PN ---
Progress Note, Physician History of Present Illness: PULMONARY ALERT,FEELING BETTER,LESS DYSPNEIC,CALMER - Current Medication List Current Medications: Active Medications Acetaminophen (Tylenol -) 650 mg PO Q6H PRN PRN Reason: FEVER OR PAIN Albuterol/Ipratropium (Duoneb -) 1 amp NEB QIDR [facility] Last Admin: 02/19/17 06:50 Dose: 1 amp Atorvastatin Calcium (Lipitor -) 10 mg PO HS [facility] Last Admin: 02/18/17 21:26 Dose: 10 mg Bethanechol Chloride (Urecholine -) 25 mg PO TID [facility] Last Admin: 02/19/17 06:23 Dose: 25 mg Budesonide/Formoterol Fumarate (Symbicort 160/4.5mcg -) 2 puff IH BID [facility] Last Admin: 02/19/17 09:16 Dose: 2 puff Diazepam (Valium -) 5 mg PO Q6H PRN PRN Reason: WITHDRAWAL(CONT SUBST) Last Admin: 02/19/17 00:42 Dose: 5 mg Diltiazem HCl (Cardizem Cd -) 120 mg PO DAILY [facility] Last Admin: 02/19/17 09:15 Dose: 120 mg Folic Acid (Folic Acid -) 1 mg PO DAILY [facility] Last Admin: 02/19/17 09:15 Dose: 1 mg Methylprednisolone Sodium Succinate (Solu-Medrol -) 40 mg IVPUSH Q12H [facility] Last Admin: 02/19/17 00:35 Dose: 40 mg Montelukast Sodium (Singulair -) 10 mg PO [facility] Last Admin: 02/18/17 21:26 Dose: 10 mg Paroxetine HCl (Paxil -) 10 mg PO DAILY [facility] Last Admin: 02/19/17 09:16 Dose: 10 mg Polyethylene Glycol (Miralax (For Daily Use) -) 17 gm PO DAILY [facility] Last Admin: 02/19/17 09:15 Dose: 17 gm Spironolactone (Aldactone -) 25 mg PO BID [facility] Last Admin: 02/19/17 09:15 Dose: 25 mg Tamsulosin HCl (Flomax -) 0.4 mg PO DAILY@0830 [facility] Last Admin: 02/19/17 09:15 Dose: 0.4 mg Thyroid ([place] Thyroid -) 60 mg PO DAILY@0700 [facility] Last Admin: 12/02/17 06:23 Dose: 60 mg - Objective Vital Signs: Vital Signs Temperature 98.7 F 02/19/17 10:00 Pulse Rate 92 H 02/19/17 10:00 Respiratory Rate 18 02/19/17 10:00 Blood Pressure 118/72 02/19/17 10:00 O2 Sat by Pulse Oximetry (%) 100 02/19/17 09:00 Constitutional: Yes: Well Nourished, Calm Eyes: Yes: WNL HENT: Yes: WNL Neck: Yes: WNL Cardiovascular: Yes: Regular Rate and Rhythm, S1, S2 Respiratory: Yes: Wheezes (FEW SCATTERED WHEEZES) Gastrointestinal: Yes: Normal Bowel Sounds, Soft Extremities: Yes: WNL Edema: No Labs: CBC, BMP Problem List - Problems (1) Shortness of breath Code(s): R06.02 - SHORTNESS OF BREATH (2) COPD (chronic obstructive pulmonary disease) Code(s): J44.9 - CHRONIC OBSTRUCTIVE PULMONARY DISEASE, UNSPECIFIED Qualifiers: Emphysema type: unspecified (3) COPD exacerbation Code(s): J44.1 - CHRONIC OBSTRUCTIVE PULMONARY DISEASE W (ACUTE) EXACERBATION (4) Mass of left lung Code(s): R91.8 - OTHER NONSPECIFIC ABNORMAL FINDING OF LUNG FIELD (5) Abdominal distension Code(s): R14.0 - ABDOMINAL DISTENSION (GASEOUS) (6) GERD (gastroesophageal reflux disease) Code(s): K21.9 - GASTRO-ESOPHAGEAL REFLUX DISEASE WITHOUT ESOPHAGITIS Qualifiers: Esophagitis presence: without esophagitis Qualified Code(s): K21.9 - Gastro -esophageal reflux disease without esophagitis (7) Hypothyroid Code(s): E03.9 - HYPOTHYROIDISM, UNSPECIFIED (8) ASHD (arteriosclerotic heart disease) Code(s): I25.10 - ATHSCL HEART DISEASE OF [place] CORONARY ARTERY W/O ANG PCTRS Assessment/Plan IMP COPD EXACERBATION IMPROVED LUNG CA ADENO WITH SOLITARY MAT MAKER MET L PTX S/P BX ASHD OSAS ON CPAP HTN GERD PULMONARY HTN HEMOPTYSIS SECONDARY TO RECENT BX RESOLVING PLAN STEROID TAPER INHALED BRONCHODILATORS O2 PET SCAN OUT PATIENT METASTATIC W/U OUTPATIENT DR DENISE Problem List - Problems (1) Shortness of breath Code(s): R06.02 - SHORTNESS OF BREATH (2) COPD (chronic obstructive pulmonary disease) Code(s): J44.9 - CHRONIC OBSTRUCTIVE PULMONARY DISEASE, UNSPECIFIED Qualifiers: Emphysema type: unspecified (3) COPD exacerbation Code(s): J44.1 - CHRONIC OBSTRUCTIVE PULMONARY DISEASE W (ACUTE) EXACERBATION (4) Mass of left lung Code(s): R91.8 - OTHER NONSPECIFIC ABNORMAL FINDING OF LUNG FIELD (5) Abdominal distension Code(s): R14.0 - ABDOMINAL DISTENSION (GASEOUS) (6) GERD (gastroesophageal reflux disease) Code(s): K21.9 - GASTRO-ESOPHAGEAL REFLUX DISEASE WITHOUT ESOPHAGITIS (7) Hypothyroid Code(s): E03.9 - HYPOTHYROIDISM, UNSPECIFIED (8) ASHD (arteriosclerotic heart disease) Code(s): I25.10 - ATHSCL HEART DISEASE OF [place] CORONARY ARTERY W/O ANG PCTRS
--- NOTE | 2017-02-19 14:23 | PN ---
Progress Note (short form) - Note Progress Note: Chief Complaint: Events noted, notes reviewed, complaining of persistent dyspnea , denies any chest discomfort, emotionally upset about her established diagnoses of lung carcinoma with a solitary brain metastases History of Present Illness: Seen and examined on telemetry earlier today. Events noted, notes reviewed, complaining of persistent dyspnea, denies any chest discomfort, emotionally upset about her established diagnoses of lung carcinoma with a solitary brain metastases - Current Medication List Current Medications Acetaminophen (Tylenol -) 650 mg PO Q6H PRN PRN Reason: FEVER OR PAIN Albuterol/Ipratropium (Duoneb -) 1 amp NEB QIDR [facility] Last Admin: 02/19/17 12:52 Dose: 1 amp Atorvastatin Calcium (Lipitor -) 10 mg PO [facility] Last Admin: 02/18/17 21:26 Dose: 10 mg Bethanechol Chloride (Urecholine -) 25 mg PO TID [facility] Last Admin: 02/19/17 06:23 Dose: 25 mg Budesonide/Formoterol Fumarate (Symbicort 160/4.5mcg -) 2 puff IH BID [facility] Last Admin: 02/19/17 09:16 Dose: 2 puff Diazepam (Valium -) 5 mg PO Q6H PRN PRN Reason: WITHDRAWAL(CONT SUBST) Last Admin: 02/19/17 12:05 Dose: 5 mg Diltiazem HCl (Cardizem Cd -) 120 mg PO DAILY [facility] Last Admin: 02/19/17 09:15 Dose: 120 mg Folic Acid (Folic Acid -) 1 mg PO DAILY [facility] Last Admin: 02/19/17 09:15 Dose: 1 mg Methylprednisolone Sodium Succinate (Solu-Medrol -) 40 mg IVPUSH Q12H [facility] Last Admin: 02/19/17 12:05 Dose: 40 mg Montelukast Sodium (Singulair -) 10 mg PO HS [facility] Last Admin: 02/18/17 21:26 Dose: 10 mg Paroxetine HCl (Paxil -) 10 mg PO DAILY [facility] Last Admin: 02/19/17 09:16 Dose: 10 mg Polyethylene Glycol (Miralax (For Daily Use) -) 17 gm PO DAILY [facility] Last Admin: 02/19/17 09:15 Dose: 17 gm Spironolactone (Aldactone -) 25 mg PO BID [facility] Last Admin: 02/19/17 09:15 Dose: 25 mg Tamsulosin HCl (Flomax -) 0.4 mg PO DAILY@0830 [facility] Last Admin: 02/19/17 09:15 Dose: 0.4 mg Thyroid ([place] Thyroid -) 60 mg PO DAILY@0700 [facility] Last Admin: 02/19/17 06:23 Dose: 60 mg - Review of Systems Constitutional: denies: Chills, Fever Cardiovascular: As noted above Respiratory: reports: Cough and Occasional Hemoptysis Gastrointestinal: denies: Nausea, Vomiting, Diarrhea, Constipation or Abdominal Pain Genitourinary: denies: Dysuria Neurological: denies: Dizziness, Headache, Seizure, Syncope, Weakness Endocrine: denies: Intolerance to Cold, Intolerance to Heat - Objective Vital Signs: Last Vital Signs Temp Pulse Resp BP Pulse Ox 98.7 F 92 H 18 118/72 100 02/19/17 10:00 02/19/17 10:00 02/19/17 10:00 02/19/17 10:00 02/19/17 09:00 Intake & Output 02/16/17 02/17/17 02/18/17 02/19/17 23:59 23:59 23:59 23:59 Intake Total 610 40 750 250 Output Total 1100 Balance -490 40 750 250 Weight 186 lb 6 oz 186 lb 6 oz 184 lb 6 oz 185 lb 6 oz Neck: Supple Negative JVD No Bruit Cardiovascular: S1 S2 Regular Rate and Rhythm Respiratory: Diminished Bilaterally With bilateral scattered rhonchi Gastrointestinal: Soft Benign Normal Bowel Sounds Ext: No edema Labs: CBC, BMP 02/18/17 06:25 02/18/17 06:25 Hepatic Panel Total Bilirubin 0.6 mg/dL (0.2-1.0) 02/18/17 06:25 AST 10 U/L (15-37) L 02/18/17 06:25 ALT 49 U/L (12-78) 02/18/17 06:25 Alkaline Phosphatase 49 U/L (45-117) 02/18/17 06:25 Albumin 3.2 g/dl (3.4-5.0) L 02/18/17 06:25 INR, PTT INR 1.04 (0.82-1.09) 02/04/17 09:53 Assessment/Plan ASSESSMENT: 1. COPD exacerbation, resolving 2. Adenocarcinoma of the lung with a solitary brain metastases, further evaluation to be performed on outpatient basis as per the patient 3. CAD non-obstructive CAD, angina pectoris 4. Diastolic LV dysfunction with class 0 NYHA classification LV failure 5. HTN 6. NIDDM 7. Hypercholesterolemia 8. Hypothyroidism 9. PVD PLAN: 1. Continue Cardizem CD 2. Continue Lipitor 3. Continue Spironolactone 4. As outlined above further evaluation of the above-noted lung adenocarcinoma to be performed on outpatient basis 5. Patient can be transferred to floor care from the cardiovascular point of view Lenard Cunha MD
--- NOTE | 2017-02-19 14:37 | PN ---
Progress Note, Physician Chief Complaint: AWAKE ALERT FEELING BETTER TODAY - Current Medication List Current Medications: Active Medications Acetaminophen (Tylenol -) 650 mg PO Q6H PRN PRN Reason: FEVER OR PAIN Albuterol/Ipratropium (Duoneb -) 1 amp NEB QIDR [facility] Last Admin: 02/19/17 12:52 Dose: 1 amp Atorvastatin Calcium (Lipitor -) 10 mg PO HS [facility] Last Admin: 02/18/17 21:26 Dose: 10 mg Bethanechol Chloride (Urecholine -) 25 mg PO TID [facility] Last Admin: 02/19/17 14:23 Dose: 25 mg Budesonide/Formoterol Fumarate (Symbicort 160/4.5mcg -) 2 puff IH BID [facility] Last Admin: 02/19/17 09:16 Dose: 2 puff Diazepam (Valium -) 5 mg PO Q6H PRN PRN Reason: WITHDRAWAL(CONT SUBST) Last Admin: 02/19/17 12:05 Dose: 5 mg Diltiazem HCl (Cardizem Cd -) 120 mg PO DAILY [facility] Last Admin: 02/19/17 09:15 Dose: 120 mg Folic Acid (Folic Acid -) 1 mg PO DAILY [facility] Last Admin: 02/19/17 09:15 Dose: 1 mg Methylprednisolone Sodium Succinate (Solu-Medrol -) 40 mg IVPUSH Q12H [facility] Last Admin: 02/19/17 12:05 Dose: 40 mg Montelukast Sodium (Singulair -) 10 mg PO HS [facility] Last Admin: 02/18/17 21:26 Dose: 10 mg Paroxetine HCl (Paxil -) 10 mg PO DAILY [facility] Last Admin: 02/19/17 09:16 Dose: 10 mg Polyethylene Glycol (Miralax (For Daily Use) -) 17 gm PO DAILY [facility] Last Admin: 02/19/17 09:15 Dose: 17 gm Spironolactone (Aldactone -) 25 mg PO BID [facility] Last Admin: 02/19/17 09:15 Dose: 25 mg Tamsulosin HCl (Flomax -) 0.4 mg PO DAILY@0830 [facility] Last Admin: 02/19/17 09:15 Dose: 0.4 mg Thyroid ([place] Thyroid -) 60 mg PO DAILY@0700 [facility] Last Admin: 02/19/17 06:23 Dose: 60 mg - Objective Vital Signs: Vital Signs Temperature 98.7 F 02/19/17 10:00 Pulse Rate 92 H 02/19/17 10:00 Respiratory Rate 18 02/19/17 10:00 Blood Pressure 118/72 02/19/17 10:00 O2 Sat by Pulse Oximetry (%) 100 02/19/17 09:00 Constitutional: Yes: Mild Distress Eyes: Yes: WNL HENT: Yes: WNL Neck: Yes: WNL Cardiovascular: Yes: WNL Respiratory: Yes: Other Gastrointestinal: Yes: WNL Genitourinary: Yes: WNL Musculoskeletal: Yes: WNL Extremities: Yes: WNL Edema: No Peripheral Pulses WNL: Yes Integumentary: Yes: WNL Wound/Incision: Yes: Clean/Dry Neurological: Yes: WNL ...Motor Strength: WNL Psychiatric: Yes: WNL Labs: CBC, BMP 02/18/17 06:25 02/18/17 06:25 INR, PTT INR 1.04 (0.82-1.09) 02/04/17 09:53 Problem List - Problems (1) COPD (chronic obstructive pulmonary disease) Code(s): J44.9 - CHRONIC OBSTRUCTIVE PULMONARY DISEASE, UNSPECIFIED Qualifiers: Emphysema type: unspecified (2) COPD exacerbation Code(s): J44.1 - CHRONIC OBSTRUCTIVE PULMONARY DISEASE W (ACUTE) EXACERBATION (3) Hypothyroid Code(s): E03.9 - HYPOTHYROIDISM, UNSPECIFIED (4) Hypothyroidism Code(s): E03.9 - HYPOTHYROIDISM, UNSPECIFIED Qualifiers: Hypothyroidism type: unspecified Qualified Code(s): E03.9 - Hypothyroidism , unspecified (5) Mass of left lung Code(s): R91.8 - OTHER NONSPECIFIC ABNORMAL FINDING OF LUNG FIELD (6) Shortness of breath Code(s): R06.02 - SHORTNESS OF BREATH Assessment/Plan ONCOLOGY WORKUP [facility] ON TUESDAY PAIN CONTROL ANXIETY MEDS DVT PROPHYLAXIS
[2017-02-19] MEDS: MONTELUKAST NA 10 MG TABLET PO SCH (21:33)
[2017-02-19] MEDS: ATORVASTATIN CA 10 MG TABLET (FP) PO SCH (21:33)
--- NOTE | 2017-02-19 23:35 | PN ---
Progress Note, Physician Chief Complaint: anxious about dx of lung cancer,fear and anxiety is setting in History of Present Illness: lung cancer with brain lesion,breathing improving - Current Medication List Current Medications: Active Medications Acetaminophen (Tylenol -) 650 mg PO Q6H PRN PRN Reason: FEVER OR PAIN Albuterol/Ipratropium (Duoneb -) 1 amp NEB QIDR [facility] Last Admin: 02/19/17 23:18 Dose: 1 amp Atorvastatin Calcium (Lipitor -) 10 mg PO HS [facility] Last Admin: 02/19/17 21:33 Dose: 10 mg Bethanechol Chloride (Urecholine -) 25 mg PO TID [facility] Last Admin: 02/19/17 21:33 Dose: 25 mg Budesonide/Formoterol Fumarate (Symbicort 160/4.5mcg -) 2 puff IH BID [facility] Last Admin: 02/19/17 21:33 Dose: 2 puff Diazepam (Valium -) 5 mg PO Q6H PRN PRN Reason: WITHDRAWAL(CONT SUBST) Last Admin: 02/19/17 20:03 Dose: 5 mg Diltiazem HCl (Cardizem Cd -) 120 mg PO DAILY [facility] Last Admin: 02/19/17 09:15 Dose: 120 mg Folic Acid (Folic Acid -) 1 mg PO DAILY [facility] Last Admin: 02/19/17 09:15 Dose: 1 mg Methylprednisolone Sodium Succinate (Solu-Medrol -) 40 mg IVPUSH Q12H [facility] Last Admin: 02/19/17 12:05 Dose: 40 mg Montelukast Sodium (Singulair -) 10 mg PO HS [facility] Last Admin: 02/19/17 21:33 Dose: 10 mg Paroxetine HCl (Paxil -) 10 mg PO DAILY [facility] Last Admin: 02/19/17 09:16 Dose: 10 mg Polyethylene Glycol (Miralax (For Daily Use) -) 17 gm PO DAILY [facility] Last Admin: 02/19/17 09:15 Dose: 17 gm Spironolactone (Aldactone -) 25 mg PO BID [facility] Last Admin: 02/19/17 21:33 Dose: 25 mg Tamsulosin HCl (Flomax -) 0.4 mg PO DAILY@0830 [facility] Last Admin: 02/19/17 09:15 Dose: 0.4 mg Thyroid ([place] Thyroid -) 60 mg PO DAILY@0700 [facility] Last Admin: 02/19/17 06:23 Dose: 60 mg - Objective Vital Signs: Vital Signs Temperature 97.8 F 02/19/17 22:00 Pulse Rate 84 02/19/17 22:00 Respiratory Rate 20 02/19/17 22:00 Blood Pressure 136/80 02/19/17 22:00 O2 Sat by Pulse Oximetry (%) 99 02/19/17 21:00 Constitutional: Yes: Well Nourished, Anxious Eyes: Yes: EOM Intact HENT: Yes: Normocephalic Neck: Yes: Trachea Midline Cardiovascular: Yes: Regular Rate and Rhythm Respiratory: Yes: On Nasal O2, Rhonchi, SOB Gastrointestinal: Yes: Normal Bowel Sounds ...Rectal Exam: Yes: Deferred Genitourinary: Yes: WNL Musculoskeletal: Yes: WNL Extremities: Yes: WNL Edema: No Peripheral Pulses WNL: Yes Wound/Incision: Yes: Clean/Dry Neurological: Yes: Alert, Oriented Psychiatric: Yes: Alert, Oriented, Agitated (family supportive,however anxious that daughter refusing to communicate with her,) Labs: CBC, BMP 02/18/17 06:25 02/18/17 06:25 INR, PTT INR 1.04 (0.82-1.09) 02/04/17 09:53 Problem List - Problems (1) Hypothyroidism Code(s): E03.9 - HYPOTHYROIDISM, UNSPECIFIED Qualifiers: Hypothyroidism type: unspecified Qualified Code(s): E03.9 - Hypothyroidism , unspecified (2) ASHD (arteriosclerotic heart disease) Code(s): I25.10 - ATHSCL HEART DISEASE OF [place] CORONARY ARTERY W/O ANG PCTRS (3) Abdominal distension Code(s): R14.0 - ABDOMINAL DISTENSION (GASEOUS) (4) COPD (chronic obstructive pulmonary disease) Code(s): J44.9 - CHRONIC OBSTRUCTIVE PULMONARY DISEASE, UNSPECIFIED Qualifiers: Emphysema type: unspecified (5) GERD (gastroesophageal reflux disease) Code(s): K21.9 - GASTRO-ESOPHAGEAL REFLUX DISEASE WITHOUT ESOPHAGITIS Qualifiers: Esophagitis presence: without esophagitis Qualified Code(s): K21.9 - Gastro -esophageal reflux disease without esophagitis (6) Hypothyroid Code(s): E03.9 - HYPOTHYROIDISM, UNSPECIFIED (7) Mass of left lung Code(s): R91.8 - OTHER NONSPECIFIC ABNORMAL FINDING OF LUNG FIELD Assessment/Plan Current Active Problems ASHD (arteriosclerotic heart disease) (Acute) Abdominal distension (Acute) Adenocarcinoma (Acute) Adenocarcinoma of left lung (Acute) Adenocarcinoma of lung (Acute) COPD (chronic obstructive pulmonary disease) (Acute) COPD exacerbation (Acute) Constipation (Acute) Diabetes mellitus (Acute) Epistaxis (Acute) GERD (gastroesophageal reflux disease) (Acute) HTN (hypertension) (Acute) Hemoptysis (Acute) Hoarseness (Acute) Hypercholesterolemia (Acute) Hypothyroid (Acute) Hypothyroidism (Acute) Mass of left lung (Acute) Metastatic adenocarcinoma to brain (Acute) ANA (obstructive sleep apnea) (Acute) Pneumothorax after biopsy (Acute) Shortness of breath (Acute) Urinary retention (Acute) Laboratory Tests 02/18/17 02/18/17 06:25 06:25 WBC 21.6 H RBC 4.94 Hgb 15.0 Hct 44.9 MCV 91.0 MCH 30.3 MCHC 33.3 RDW 13.5 Plt Count 200 MPV 7.5 Sodium 136 Potassium 4.7 D Chloride 100 Carbon Dioxide 29 Anion Gap 7 L BUN 20 H Creatinine 0.7 D Creat Clearance w eGFR > 60 Random Glucose 137 H D plan: nebulizer rx continue thyroid armour ambulate dc plan for follow up [facility] for cancer treatment
[2017-02-20] MEDS: methylPREDNISolone NA SUCC 40 MG/1 ML VIAL IVPUSH SCH ×2 (00:20→11:36)
[2017-02-20] MEDS ORDERED: PT OWN MED DRAWER 7, Y5N ONE ×2 (05:59→09:51)
[2017-02-20] MEDS: BETHANECHOL CHLORIDE 25 MG TABLET PO SCH ×3 (06:21→21:29)
[2017-02-20] MEDS: THYROID 60 MG TABLET PO SCH (06:21)
[2017-02-20] MEDS: ALBUTEROL SO4 2.5/IPRATROPIUM 0.5 INH SOL 3 ML VIAL.NEB. NEB SCH ×4 (06:52→23:08)
[2017-02-20] MEDS: TAMSULOSIN HCL 0.4 MG CAP.ER.24H (FP) PO SCH (08:40)
--- NOTE | 2017-02-20 09:17 | PN ---
Progress Note (short form) - Note Progress Note: Chief Complaint: Events noted, notes reviewed, complaining of persistent dyspnea although improved, denies any chest discomfort History of Present Illness: Seen and examined on telemetry. Events noted, notes reviewed, complaining of persistent dyspnea although improved, denies any chest discomfort - Current Medication List Current Medications Acetaminophen (Tylenol -) 650 mg PO Q6H PRN PRN Reason: FEVER OR PAIN Albuterol/Ipratropium (Duoneb -) 1 amp NEB QIDR [facility] Last Admin: 02/20/17 06:52 Dose: 1 amp Atorvastatin Calcium (Lipitor -) 10 mg PO HS [facility] Last Admin: 02/19/17 21:33 Dose: 10 mg Bethanechol Chloride (Urecholine -) 25 mg PO TID [facility] Last Admin: 02/20/17 06:21 Dose: 25 mg Budesonide/Formoterol Fumarate (Symbicort 160/4.5mcg -) 2 puff IH BID [facility] Last Admin: 02/19/17 21:33 Dose: 2 puff Diazepam (Valium -) 5 mg PO Q6H PRN PRN Reason: WITHDRAWAL(CONT SUBST) Last Admin: 02/19/17 20:03 Dose: 5 mg Diltiazem HCl (Cardizem Cd -) 120 mg PO DAILY [facility] Last Admin: 02/19/17 09:15 Dose: 120 mg Folic Acid (Folic Acid -) 1 mg PO DAILY [facility] Last Admin: 02/19/17 09:15 Dose: 1 mg Methylprednisolone Sodium Succinate (Solu-Medrol -) 40 mg IVPUSH Q12H [facility] Last Admin: 02/20/17 00:20 Dose: 40 mg Montelukast Sodium (Singulair -) 10 mg PO HS [facility] Last Admin: 02/19/17 21:33 Dose: 10 mg Paroxetine HCl (Paxil -) 10 mg PO DAILY [facility] Last Admin: 02/19/17 09:16 Dose: 10 mg Polyethylene Glycol (Miralax (For Daily Use) -) 17 gm PO DAILY [facility] Last Admin: 02/19/17 09:15 Dose: 17 gm Spironolactone (Aldactone -) 25 mg PO BID [facility] Last Admin: 02/19/17 21:33 Dose: 25 mg Tamsulosin HCl (Flomax -) 0.4 mg PO DAILY@0830 [facility] Last Admin: 02/19/17 09:15 Dose: 0.4 mg Thyroid ([place] Thyroid -) 60 mg PO DAILY@0700 [facility] Last Admin: 02/20/17 06:21 Dose: 60 mg - Review of Systems Constitutional: denies: Chills, Fever Cardiovascular: As noted above Respiratory: reports: Cough and Occasional Hemoptysis Gastrointestinal: denies: Nausea, Vomiting, Diarrhea, Constipation or Abdominal Pain Genitourinary: denies: Dysuria Neurological: denies: Dizziness, Headache, Seizure, Syncope, Weakness Endocrine: denies: Intolerance to Cold, Intolerance to Heat - Objective Vital Signs: Last Vital Signs Temp Pulse Resp BP Pulse Ox 98.1 F 79 18 120/66 99 02/20/17 06:00 02/20/17 06:00 02/20/17 06:00 02/20/17 06:00 02/19/17 21:00 Intake & Output 02/17/17 02/18/17 02/19/17 02/20/17 23:59 23:59 23:59 23:59 Intake Total 40 750 1020 10 Balance 40 750 1020 10 Weight 186 lb 6 oz 184 lb 6 oz 185 lb 6 oz 183 lb 4 oz Neck: Supple Negative JVD No Bruit Cardiovascular: S1 S2 Regular Rate and Rhythm Respiratory: Diminished Bilaterally With bilateral scattered rhonchi Gastrointestinal: Soft Benign Normal Bowel Sounds Ext: No edema Labs: CBC, BMP 02/18/17 06:25 02/18/17 06:25 Assessment/Plan ASSESSMENT: 1. COPD exacerbation, resolving 2. Adenocarcinoma of the lung with a solitary brain metastases, further evaluation to be performed on outpatient basis as per the patient 3. CAD non-obstructive CAD, angina pectoris 4. Diastolic LV dysfunction with class 0 NYHA classification LV failure 5. HTN 6. NIDDM 7. Hypercholesterolemia 8. Hypothyroidism 9. PVD PLAN: 1. Continue Cardizem CD 2. Continue Lipitor 3. Continue Spironolactone 4. As outlined above further evaluation of the above-noted lung adenocarcinoma to be performed on outpatient basis at [facility] [place] 5. Patient can be transferred to floor care from the cardiovascular point of view, D/C telemetry Lenard Cunha MD
--- NOTE | 2017-02-20 10:41 | PN ---
Progress Note, Physician History of Present Illness: pulmonary alert,feeling better,much calmer,sob improving - Current Medication List Current Medications: Active Medications Acetaminophen (Tylenol -) 650 mg PO Q6H PRN PRN Reason: FEVER OR PAIN Albuterol/Ipratropium (Duoneb -) 1 amp NEB QIDR [facility] Last Admin: 02/20/17 06:52 Dose: 1 amp Atorvastatin Calcium (Lipitor -) 10 mg PO HS [facility] Last Admin: 02/19/17 21:33 Dose: 10 mg Bethanechol Chloride (Urecholine -) 25 mg PO TID [facility] Last Admin: 02/20/17 06:21 Dose: 25 mg Budesonide/Formoterol Fumarate (Symbicort 160/4.5mcg -) 2 puff IH BID [facility] Last Admin: 02/19/17 21:33 Dose: 2 puff Diazepam (Valium -) 5 mg PO Q6H PRN PRN Reason: WITHDRAWAL(CONT SUBST) Last Admin: 02/19/17 20:03 Dose: 5 mg Diltiazem HCl (Cardizem Cd -) 120 mg PO DAILY [facility] Last Admin: 02/19/17 09:15 Dose: 120 mg Folic Acid (Folic Acid -) 1 mg PO DAILY [facility] Last Admin: 02/19/17 09:15 Dose: 1 mg Methylprednisolone Sodium Succinate (Solu-Medrol -) 40 mg IVPUSH Q12H [facility] Last Admin: 02/20/17 00:20 Dose: 40 mg Montelukast Sodium (Singulair -) 10 mg PO HS [facility] Last Admin: 02/19/17 21:33 Dose: 10 mg Paroxetine HCl (Paxil -) 10 mg PO DAILY [facility] Last Admin: 02/19/17 09:16 Dose: 10 mg Polyethylene Glycol (Miralax (For Daily Use) -) 17 gm PO DAILY [facility] Last Admin: 02/19/17 09:15 Dose: 17 gm Spironolactone (Aldactone -) 25 mg PO BID [facility] Last Admin: 02/19/17 21:33 Dose: 25 mg Tamsulosin HCl (Flomax -) 0.4 mg PO DAILY@0830 [facility] Last Admin: 02/19/17 09:15 Dose: 0.4 mg Thyroid ([place] Thyroid -) 60 mg PO DAILY@0700 [facility] Last Admin: 02/20/17 06:21 Dose: 60 mg - Objective Vital Signs: Vital Signs Temperature 98.1 F 02/20/17 06:00 Pulse Rate 79 02/20/17 06:00 Respiratory Rate 18 02/20/17 06:00 Blood Pressure 120/66 02/20/17 06:00 O2 Sat by Pulse Oximetry (%) 99 02/19/17 21:00 Constitutional: Yes: Well Nourished, Calm Eyes: Yes: WNL HENT: Yes: WNL Neck: Yes: WNL Cardiovascular: Yes: Regular Rate and Rhythm, S1, S2 Respiratory: Yes: Wheezes (scattered hanny wheezes) Gastrointestinal: Yes: Normal Bowel Sounds, Soft Extremities: Yes: WNL Edema: No Labs: CBC, BMP Problem List - Problems (1) Shortness of breath Code(s): R06.02 - SHORTNESS OF BREATH (2) COPD (chronic obstructive pulmonary disease) Code(s): J44.9 - CHRONIC OBSTRUCTIVE PULMONARY DISEASE, UNSPECIFIED Qualifiers: Emphysema type: unspecified (3) COPD exacerbation Code(s): J44.1 - CHRONIC OBSTRUCTIVE PULMONARY DISEASE W (ACUTE) EXACERBATION (4) Mass of left lung Code(s): R91.8 - OTHER NONSPECIFIC ABNORMAL FINDING OF LUNG FIELD (5) Abdominal distension Code(s): R14.0 - ABDOMINAL DISTENSION (GASEOUS) (6) GERD (gastroesophageal reflux disease) Code(s): K21.9 - GASTRO-ESOPHAGEAL REFLUX DISEASE WITHOUT ESOPHAGITIS Qualifiers: Esophagitis presence: without esophagitis Qualified Code(s): K21.9 - Gastro -esophageal reflux disease without esophagitis (7) Hypothyroid Code(s): E03.9 - HYPOTHYROIDISM, UNSPECIFIED (8) ASHD (arteriosclerotic heart disease) Code(s): I25.10 - ATHSCL HEART DISEASE OF [place] CORONARY ARTERY W/O ANG PCTRS Assessment/Plan IMP COPD EXACERBATION IMPROVED LUNG CA 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 S/P BX ASHD OSAS ON CPAP HTN GERD PULMONARY HTN HEMOPTYSIS RESOLVED PLAN STEROID TAPER INHALED BRONCHODILATORS O2 PET SCAN OUT PATIENT METASTATIC W/U OUTPATIENT DR DENISE Problem List - Problems (1) Shortness of breath Code(s): R06.02 - SHORTNESS OF BREATH (2) COPD (chronic obstructive pulmonary disease) Code(s): J44.9 - CHRONIC OBSTRUCTIVE PULMONARY DISEASE, UNSPECIFIED Qualifiers: Emphysema type: unspecified (3) COPD exacerbation Code(s): J44.1 - CHRONIC OBSTRUCTIVE PULMONARY DISEASE W (ACUTE) EXACERBATION (4) Mass of left lung Code(s): R91.8 - OTHER NONSPECIFIC ABNORMAL FINDING OF LUNG FIELD (5) Abdominal distension Code(s): R14.0 - ABDOMINAL DISTENSION (GASEOUS) (6) GERD (gastroesophageal reflux disease) Code(s): K21.9 - GASTRO-ESOPHAGEAL REFLUX DISEASE WITHOUT ESOPHAGITIS (7) Hypothyroid Code(s): E03.9 - HYPOTHYROIDISM, UNSPECIFIED (8) ASHD (arteriosclerotic heart disease) Code(s): I25.10 - ATHSCL HEART DISEASE OF [place] CORONARY ARTERY W/O ANG PCTRS
[2017-02-20] MEDS: SPIRONOLACTONE 25 MG TABLET (FP) PO SCH ×2 (10:53→21:29)
[2017-02-20] MEDS: FOLIC ACID 1 MG TABLET (FP) PO SCH (11:01)
[2017-02-20] MEDS: PARoxetine HCL 10 MG TABLET (FP) PO SCH (11:01)
[2017-02-20] MEDS: POLYETHYLENE GLYCOL 3350 119 GM BTL PO SCH (11:10)
[2017-02-20] MEDS: BUDESONIDE/FORMETEROL FUMARATE 160/4.5 mcg INHALER IH SCH ×2 (11:10→21:29)
--- NOTE | 2017-02-20 13:14 | PN ---
Progress Note, Physician Chief Complaint: AWAKE ALERT NAD - Current Medication List Current Medications: Active Medications Acetaminophen (Tylenol -) 650 mg PO Q6H PRN PRN Reason: FEVER OR PAIN Albuterol/Ipratropium (Duoneb -) 1 amp NEB QIDR [facility] Last Admin: 02/20/17 11:57 Dose: 1 amp Atorvastatin Calcium (Lipitor -) 10 mg PO HS [facility] Last Admin: 02/19/17 21:33 Dose: 10 mg Bethanechol Chloride (Urecholine -) 25 mg PO TID [facility] Last Admin: 02/20/17 06:21 Dose: 25 mg Budesonide/Formoterol Fumarate (Symbicort 160/4.5mcg -) 2 puff IH BID [facility] Last Admin: 02/20/17 11:10 Dose: 2 puff Diazepam (Valium -) 5 mg PO Q6H PRN PRN Reason: WITHDRAWAL(CONT SUBST) Last Admin: 02/19/17 20:03 Dose: 5 mg Diltiazem HCl (Cardizem Cd -) 120 mg PO DAILY [facility] Last Admin: 02/20/17 11:01 Dose: 120 mg Folic Acid (Folic Acid -) 1 mg PO DAILY [facility] Last Admin: 02/20/17 11:01 Dose: 1 mg Methylprednisolone Sodium Succinate (Solu-Medrol -) 40 mg IVPUSH Q12H [facility] Last Admin: 02/20/17 11:36 Dose: 40 mg Montelukast Sodium (Singulair -) 10 mg PO HS [facility] Last Admin: 02/19/17 21:33 Dose: 10 mg Paroxetine HCl (Paxil -) 10 mg PO DAILY [facility] Last Admin: 02/20/17 11:01 Dose: 10 mg Polyethylene Glycol (Miralax (For Daily Use) -) 17 gm PO DAILY [facility] Last Admin: 02/20/17 11:10 Dose: 17 gm Spironolactone (Aldactone -) 25 mg PO BID [facility] Last Admin: 02/20/17 10:53 Dose: 25 mg Tamsulosin HCl (Flomax -) 0.4 mg PO DAILY@0830 [facility] Last Admin: 02/20/17 08:40 Dose: 0.4 mg Thyroid ([place] Thyroid -) 60 mg PO DAILY@0700 [facility] Last Admin: 02/20/17 06:21 Dose: 60 mg - Objective Vital Signs: Vital Signs Temperature 97.9 F 02/20/17 10:00 Pulse Rate 83 02/20/17 10:00 Respiratory Rate 18 02/20/17 10:00 Blood Pressure 124/80 02/20/17 10:00 O2 Sat by Pulse Oximetry (%) 99 02/20/17 09:00 Constitutional: Yes: No Distress Eyes: Yes: WNL HENT: Yes: WNL Neck: Yes: WNL Cardiovascular: Yes: WNL Respiratory: Yes: On Nasal O2 Gastrointestinal: Yes: WNL Genitourinary: Yes: WNL Musculoskeletal: Yes: WNL Extremities: Yes: WNL Edema: No Peripheral Pulses WNL: Yes Integumentary: Yes: WNL Wound/Incision: Yes: Clean/Dry Neurological: Yes: WNL ...Motor Strength: WNL Psychiatric: Yes: WNL Labs: CBC, BMP 02/18/17 06:25 02/18/17 06:25 INR, PTT INR 1.04 (0.82-1.09) 02/04/17 09:53 Problem List - Problems (1) COPD (chronic obstructive pulmonary disease) Code(s): J44.9 - CHRONIC OBSTRUCTIVE PULMONARY DISEASE, UNSPECIFIED Qualifiers: Emphysema type: unspecified (2) COPD exacerbation Code(s): J44.1 - CHRONIC OBSTRUCTIVE PULMONARY DISEASE W (ACUTE) EXACERBATION (3) Hypothyroid Code(s): E03.9 - HYPOTHYROIDISM, UNSPECIFIED (4) Hypothyroidism Code(s): E03.9 - HYPOTHYROIDISM, UNSPECIFIED Qualifiers: Hypothyroidism type: unspecified Qualified Code(s): E03.9 - Hypothyroidism , unspecified (5) Mass of left lung Code(s): R91.8 - OTHER NONSPECIFIC ABNORMAL FINDING OF LUNG FIELD (6) Shortness of breath Code(s): R06.02 - SHORTNESS OF BREATH Assessment/Plan ONCOLOG[facility] WORKUP [facility] ON TUESDAY PAIN CONTROL ANXIETY MEDS DVT PROPHYLAXIS O2 RESP EVAL FOR HOME
[2017-02-20] MEDS: diazePAM 5 MG TABLET PO PRN (13:41)
[2017-02-20] MEDS ORDERED: PNEUMOC 13-VAL CONJ-DIP CRM/PF 0.5 ML DISP.SYRIN IM ONE (15:20)
[2017-02-20] MEDS ORDERED: PNEUMOCOCCAL 23 VACCINE 0.5 ML VIAL IM ONE (15:30)
[2017-02-20] MEDS ORDERED: SODIUM CHLORIDE NASAL SPRAY 44 ML BOTTLE NS PRN (21:09)
[2017-02-20] MEDS ORDERED: PANTOPRAZOLE SODIUM 40 MG VIAL IVPUSH ONE (21:15)
[2017-02-20] MEDS ORDERED: MAG HYDROX/AL HYDROX/SIMETH 30 ML UNIT-DOSE CUP PO ONE (21:15)
[2017-02-20] MEDS: AMOX TR/POT CLAV 875MG/125MG TABLETS (FP) PO SCH (21:28)
[2017-02-20] MEDS: ATORVASTATIN CA 10 MG TABLET (FP) PO SCH (21:29)
[2017-02-20] MEDS: MONTELUKAST NA 10 MG TABLET PO SCH (21:29)
--- NOTE | 2017-02-20 23:11 | PN ---
Progress Note, Physician Chief Complaint: coughing has been blood tinged to dark yellow History of Present Illness: lung cancer with brain lesion - Current Medication List Current Medications: Active Medications Acetaminophen (Tylenol -) 650 mg PO Q6H PRN PRN Reason: FEVER OR PAIN Albuterol/Ipratropium (Duoneb -) 1 amp NEB QIDR [facility] Last Admin: 02/20/17 17:06 Dose: 1 amp Amoxicillin/Clavulanate Potassium (Augmentin - 875mg Tablet) 1 tab PO BID [facility] Last Admin: 02/20/17 21:28 Dose: 1 tab Atorvastatin Calcium (Lipitor -) 10 mg PO HS [facility] Last Admin: 02/20/17 21:29 Dose: 10 mg Bethanechol Chloride (Urecholine -) 25 mg PO TID [facility] Last Admin: 02/20/17 21:29 Dose: 25 mg Budesonide/Formoterol Fumarate (Symbicort 160/4.5mcg -) 2 puff IH BID [facility] Last Admin: 02/20/17 21:29 Dose: 2 puff Diazepam (Valium -) 5 mg PO Q6H PRN PRN Reason: WITHDRAWAL(CONT SUBST) Last Admin: 02/20/17 13:41 Dose: 5 mg Diltiazem HCl (Cardizem Cd -) 120 mg PO DAILY [facility] Last Admin: 02/20/17 11:01 Dose: 120 mg Folic Acid (Folic Acid -) 1 mg PO DAILY [facility] Last Admin: 02/20/17 11:01 Dose: 1 mg Methylprednisolone Sodium Succinate (Solu-Medrol -) 40 mg IVPUSH Q12H [facility] Last Admin: 02/20/17 11:36 Dose: 40 mg Montelukast Sodium (Singulair -) 10 mg PO HS [facility] Last Admin: 02/20/17 21:29 Dose: 10 mg Paroxetine HCl (Paxil -) 10 mg PO DAILY [facility] Last Admin: 02/20/17 11:01 Dose: 10 mg Polyethylene Glycol (Miralax (For Daily Use) -) 17 gm PO DAILY [facility] Last Admin: 02/20/17 11:10 Dose: 17 gm Sodium Chloride ([place] Nasal [place] -) 1 spray NS Q2H PRN PRN Reason: DRY NOSE Spironolactone (Aldactone -) 25 mg PO BID [facility] Last Admin: 02/20/17 21:29 Dose: 25 mg Tamsulosin HCl (Flomax -) 0.4 mg PO DAILY@0830 [facility] Last Admin: 02/20/17 08:40 Dose: 0.4 mg Thyroid ([place] Thyroid -) 60 mg PO DAILY@0700 [facility] Last Admin: 02/20/17 06:21 Dose: 60 mg - Objective Vital Signs: Vital Signs Temperature 97.7 F 02/20/17 18:00 Pulse Rate 86 02/20/17 18:00 Respiratory Rate 18 02/20/17 18:00 Blood Pressure 128/80 02/20/17 18:00 O2 Sat by Pulse Oximetry (%) 92 L 02/20/17 15:02 Constitutional: Yes: Calm Eyes: Yes: EOM Intact HENT: Yes: Normocephalic Neck: Yes: Trachea Midline Cardiovascular: Yes: Regular Rate and Rhythm Respiratory: Yes: Cough Gastrointestinal: Yes: Normal Bowel Sounds ...Rectal Exam: Yes: Deferred Genitourinary: Yes: WNL Breast(s): Yes: WNL Musculoskeletal: Yes: WNL Extremities: Yes: WNL Labs: CBC, BMP 02/18/17 06:25 02/18/17 06:25 INR, PTT INR 1.04 (0.82-1.09) 02/04/17 09:53 Problem List - Problems (1) Hypothyroidism Code(s): E03.9 - HYPOTHYROIDISM, UNSPECIFIED Qualifiers: Hypothyroidism type: unspecified Qualified Code(s): E03.9 - Hypothyroidism , unspecified (2) ASHD (arteriosclerotic heart disease) Code(s): I25.10 - ATHSCL HEART DISEASE OF [place] CORONARY ARTERY W/O ANG PCTRS (3) Abdominal distension Code(s): R14.0 - ABDOMINAL DISTENSION (GASEOUS) (4) COPD (chronic obstructive pulmonary disease) Code(s): J44.9 - CHRONIC OBSTRUCTIVE PULMONARY DISEASE, UNSPECIFIED Qualifiers: Emphysema type: unspecified (5) GERD (gastroesophageal reflux disease) Code(s): K21.9 - GASTRO-ESOPHAGEAL REFLUX DISEASE WITHOUT ESOPHAGITIS Qualifiers: Esophagitis presence: without esophagitis Qualified Code(s): K21.9 - Gastro -esophageal reflux disease without esophagitis (6) Hypothyroid Code(s): E03.9 - HYPOTHYROIDISM, UNSPECIFIED (7) Mass of left lung Code(s): R91.8 - OTHER NONSPECIFIC ABNORMAL FINDING OF LUNG FIELD Assessment/Plan Current Active Problems ASHD (arteriosclerotic heart disease) (Acute) Abdominal distension (Acute) Adenocarcinoma (Acute) Adenocarcinoma of left lung (Acute) Adenocarcinoma of lung (Acute) COPD (chronic obstructive pulmonary disease) (Acute) COPD exacerbation (Acute) Constipation (Acute) Diabetes mellitus (Acute) Epistaxis (Acute) GERD (gastroesophageal reflux disease) (Acute) HTN (hypertension) (Acute) Hemoptysis (Acute) Hoarseness (Acute) Hypercholesterolemia (Acute) Hypothyroid (Acute) Hypothyroidism (Acute) Mass of left lung (Acute) Metastatic adenocarcinoma to brain (Acute) ANA (obstructive sleep apnea) (Acute) Pneumothorax after biopsy (Acute) Shortness of breath (Acute) Urinary retention (Acute) Laboratory Tests 02/18/17 02/18/17 06:25 06:25 WBC 21.6 H RBC 4.94 Hct 44.9 MCV 91.0 MCH 30.3 MCHC 33.3 RDW 13.5 Plt Count 200 Sodium 136 Potassium 4.7 D Chloride 100 Carbon Dioxide 29 Anion Gap 7 L BUN 20 H Creatinine 0.7 D Creat Clearance w eGFR > 60 Random Glucose 137 H D plan: augmentum 875 mg bid dc planning follow up with oncology joe peterson op
[2017-02-20] MEDS ORDERED: BISACODYL 5 MG TABLET.DR (FP) PO ONE (23:27)
[2017-02-21] MEDS: methylPREDNISolone NA SUCC 40 MG/1 ML VIAL IVPUSH SCH (00:31)
[2017-02-21] MEDS: diazePAM 5 MG TABLET PO PRN (00:31)
[2017-02-21] MEDS ORDERED: PT OWN MED DRAWER 7, Y5N ONE ×2 (05:49→08:18)
[2017-02-21] MEDS: ALBUTEROL SO4 2.5/IPRATROPIUM 0.5 INH SOL 3 ML VIAL.NEB. NEB SCH ×2 (06:05→11:10)
[2017-02-21] MEDS: THYROID 60 MG TABLET PO SCH (06:15)
[2017-02-21] MEDS: BETHANECHOL CHLORIDE 25 MG TABLET PO SCH ×2 (06:15→14:14)
--- NOTE | 2017-02-21 08:00 | DS ---
Physical Examination Vital Signs: Vital Signs Temperature 98.3 F 02/21/17 07:53 Pulse Rate 91 H 02/21/17 07:53 Respiratory Rate 20 02/21/17 07:55 Blood Pressure 128/74 02/21/17 07:53 O2 Sat by Pulse Oximetry (%) 99 02/20/17 21:00 Findings/Remarks: feels better plan discussed with patient and will follow up at [place] Cardiovascular: Yes: S1, S2 Respiratory: Yes: Rhonchi Gastrointestinal: Yes: Normal Bowel Sounds, Soft Labs: CBC, BMP 02/18/17 06:25 02/18/17 06:25 Discharge Summary Reason For Visit: SOB,RESPIRATORY DISTRESS Current Active Problems ASHD (arteriosclerotic heart disease) (Acute) Abdominal distension (Acute) Adenocarcinoma (Acute) Adenocarcinoma of left lung (Acute) Adenocarcinoma of lung (Acute) COPD (chronic obstructive pulmonary disease) (Acute) COPD exacerbation (Acute) Constipation (Acute) Diabetes mellitus (Acute) Epistaxis (Acute) GERD (gastroesophageal reflux disease) (Acute) HTN (hypertension) (Acute) Hemoptysis (Acute) Hoarseness (Acute) Hypercholesterolemia (Acute) Hypothyroid (Acute) Hypothyroidism (Acute) Mass of left lung (Acute) Metastatic adenocarcinoma to brain (Acute) ANA (obstructive sleep apnea) (Acute) Pneumothorax after biopsy (Acute) Shortness of breath (Acute) Urinary retention (Acute) Hospital Course: Patient is a 61 year old female with underlying history of coronary artery disease, non-obstructive, angina pectoris, diastolic left ventricular dysfunction with class 0 NYHA classification heart failure, redundant mitral valve leaflet with mild mitral valve regurgitation, hypertension, NIDDM, hypercholesterolemia and PVD. Patient also has history of hypothyroidism, degenerative disc disease, OSAS and GERD. She presented with shortness of breath and abdominal fullness. . She denies chest pain or palpitations. She is breathing comfortable and abdominal distension has improved. She denies paroxysmal nocturnal dyspnea or orthopnea. She denies fever or chills. She denies headache or lightheadedness. She was admitted and started on iv steroids, nebs and antibiotics- she had a slow but progressive improvement. she was found to have a pulmonary nodule which fpr which a biopsy was done 1.8cm LULmass, 3.2cm AP window mass, suggestive of necrotic lymph node, Lt. hilar adenopathy biopsy of [place] mass c/w pulmonary adeoca BX complicated by pneumothorax now MRI brain with solitary 1.4cm midbrain hemorrhagic mass stage IV adeno ca of lung---solitary brain lesion- Further treatment was discussed with patient and she will be referred to [place] for further treatment and work up - History Source History Provided By: Patient, Medical Record Limitations to Obtaining History: No Limitations - Past Medical History Cardio/Vascular: Yes: CAD, CHF, HTN, Hyperlipdemia Gastrointestinal: Yes: GERD Heme/Onc: Yes: Anemia Endocrine: Yes: Diabetes Mellitus, Hypothyroidism - Problems (1) Adenocarcinoma of left lung Assessment/Plan: -confirmed by biopsy -seen by oncology -will follow up at [facility]--has apt for Tuesday Code(s): C34.92 - MALIGNANT NEOPLASM OF UNSP PART OF LEFT BRONCHUS OR LUNG (2) Metastatic adenocarcinoma to brain Assessment/Plan: -confirmed by MRI -further planning pending per ns at [place] Code(s): C79.31 - SECONDARY MALIGNANT NEOPLASM OF BRAIN (3) COPD exacerbation Assessment/Plan: -IV steroids--to po -neb tx -seen by Pulmonary Code(s): J44.1 - CHRONIC OBSTRUCTIVE PULMONARY DISEASE W (ACUTE) EXACERBATION (4) Constipation Assessment/Plan: -resolved -on Miralax Code(s): K59.00 - CONSTIPATION, UNSPECIFIED (5) Pneumothorax after biopsy Assessment/Plan: -post lung biopsy -Chest tube removed yesterday -cxr no pnx Code(s): J95.811 - POSTPROCEDURAL PNEUMOTHORAX (6) Urinary retention Assessment/Plan: -improved -on Tamsulosin Code(s): R33.9 - RETENTION OF URINE, UNSPECIFIED Condition: Improved - Instructions Diet, Activity, Other Instructions: Follow-up at tertiary care center as advised Resume activities at your discretion Kaitlin and Happy New Year! Referrals: Andrae Atwood MD [Primary Care Provider] - 1 Week - Home Medications Comprehensive Discharge Medication List: Ambulatory Orders Atorvastatin Ca [Lipitor] 20 mg PO HS 02/04/17 Cyanocobalamin (Vitamin B-12) [B-12] 500 mcg PO WEEKLY 02/04/17 Diltiazem Cd [Cardizem Cd -] 120 mg PO DAILY 02/04/17 Folic Acid 1 mg PO DAILY 02/04/17 Mesalamine 1.2 gm PO ASDIR 02/04/17 Montelukast Na [Singulair -] 10 mg PO HS 02/04/17 Paroxetine HCl [Paxil] 20 mg PO DAILY 02/04/17 Spironolactone [Aldactone] 25 mg PO DAILY 02/04/17 Thyroid [[place] Thyroid] 60 mg PO DAILY 02/04/17 Acetaminophen [Tylenol .Regular Strength -] 650 mg PO Q6H PRN tablet 02/21/17 Albuterol 2.5/Ipratropium 0.5 [Duoneb -] 1 amp NEB QIDR amp 02/21/17 Amox-Tr/K Cl [Augmentin 875-125mg Tablet -] 1 tab PO BID #10 tablet 02/21/17 Bethanechol Chloride [Bethanechol Chloride -] 25 mg PO TID #90 tablet 02/21/17 Budesonide/Formeterol Fumarate [SYMBICORT 160/4.5mcg -] 2 puff IH BID #1 inhaler 02/21/17 Diazepam [Valium] 5 mg PO Q6H PRN #20 tablet MDD 4 02/21/17 Polyethylene Glycol 3350 [Miralax 119 gm Btl -] 17 gm PO DAILY bottle 02/21/17 Prednisone 10 mg PO DAILY #100 tablet 02/21/17 Sodium Chloride Nasal [place] [[place] Nasal [place] -] 1 spray NS Q2H PRN spray 02/21/17 Tamsulosin HCl [Flomax -] 0.4 mg PO DAILY@0830 #30 cap.er.24h 02/21/17
[2017-02-21] MEDS: TAMSULOSIN HCL 0.4 MG CAP.ER.24H (FP) PO SCH (08:25)
[2017-02-21] MEDS: predniSONE 20 MG TABLET (UD) PO SCH ×2 (08:25→09:37)
[2017-02-21] MEDS: PARoxetine HCL 10 MG TABLET (FP) PO SCH (09:35)
[2017-02-21] MEDS: AMOX TR/POT CLAV 875MG/125MG TABLETS (FP) PO SCH (09:35)
[2017-02-21] MEDS: FOLIC ACID 1 MG TABLET (FP) PO SCH (09:37)
[2017-02-21] MEDS: SPIRONOLACTONE 25 MG TABLET (FP) PO SCH (09:37)
[2017-02-21] MEDS: POLYETHYLENE GLYCOL 3350 119 GM BTL PO SCH (09:38)
[2017-02-21] MEDS: BUDESONIDE/FORMETEROL FUMARATE 160/4.5 mcg INHALER IH SCH (09:46)
--- NOTE | 2017-02-21 10:25 | PN ---
Progress Note, Physician History of Present Illness: pulmonary alert,nad,-sob,trace hemoptysis dark blood - Current Medication List Current Medications: Active Medications Acetaminophen (Tylenol -) 650 mg PO Q6H PRN PRN Reason: FEVER OR PAIN Albuterol/Ipratropium (Duoneb -) 1 amp NEB QIDR [facility] Last Admin: 02/21/17 06:05 Dose: 1 amp Amoxicillin/Clavulanate Potassium (Augmentin - 875mg Tablet) 1 tab PO BID [facility] Last Admin: 02/21/17 09:35 Dose: 1 tab Atorvastatin Calcium (Lipitor -) 10 mg PO HS [facility] Last Admin: 02/20/17 21:29 Dose: 10 mg Bethanechol Chloride (Urecholine -) 25 mg PO TID [facility] Last Admin: 02/21/17 06:15 Dose: 25 mg Budesonide/Formoterol Fumarate (Symbicort 160/4.5mcg -) 2 puff IH BID [facility] Last Admin: 02/21/17 09:46 Dose: 2 puff Diazepam (Valium -) 5 mg PO Q6H PRN PRN Reason: WITHDRAWAL(CONT SUBST) Last Admin: 02/21/17 00:31 Dose: 5 mg Diltiazem HCl (Cardizem Cd -) 120 mg PO DAILY [facility] Last Admin: 02/21/17 09:37 Dose: 120 mg Folic Acid (Folic Acid -) 1 mg PO DAILY [facility] Last Admin: 02/21/17 09:37 Dose: 1 mg Montelukast Sodium (Singulair -) 10 mg PO HS [facility] Last Admin: 02/20/17 21:29 Dose: 10 mg Paroxetine HCl (Paxil -) 10 mg PO DAILY [facility] Last Admin: 02/21/17 09:35 Dose: 10 mg Polyethylene Glycol (Miralax (For Daily Use) -) 17 gm PO DAILY [facility] Last Admin: 02/21/17 09:38 Dose: Not Given Prednisone (Deltasone -) 60 mg PO DAILY [facility] Last Admin: 02/21/17 09:37 Dose: Not Given Sodium Chloride ([place] Nasal [place] -) 1 spray NS Q2H PRN PRN Reason: DRY NOSE Last Admin: 02/21/17 06:15 Dose: 1 spray Spironolactone (Aldactone -) 25 mg PO BID [facility] Last Admin: 02/21/17 09:37 Dose: 25 mg Tamsulosin HCl (Flomax -) 0.4 mg PO DAILY@0830 [facility] Last Admin: 02/21/17 08:25 Dose: 0.4 mg Thyroid ([place] Thyroid -) 60 mg PO DAILY@0700 [facility] Last Admin: 02/21/17 06:15 Dose: 60 mg - Objective Vital Signs: Vital Signs Temperature 98.3 F 02/21/17 07:53 Pulse Rate 91 H 02/21/17 07:53 Respiratory Rate 20 02/21/17 07:55 Blood Pressure 128/74 02/21/17 07:53 O2 Sat by Pulse Oximetry (%) 99 02/20/17 21:00 Constitutional: Yes: Well Nourished, Calm Eyes: Yes: WNL HENT: Yes: WNL Cardiovascular: Yes: Regular Rate and Rhythm, S1, S2 Respiratory: Yes: Wheezes (FEW SCATTERED ANDRE WHEEZES) Gastrointestinal: Yes: Normal Bowel Sounds, Soft Extremities: Yes: WNL Edema: No Labs: CBC, BMP Problem List - Problems (1) Shortness of breath Code(s): R06.02 - SHORTNESS OF BREATH (2) COPD (chronic obstructive pulmonary disease) Code(s): J44.9 - CHRONIC OBSTRUCTIVE PULMONARY DISEASE, UNSPECIFIED Qualifiers: Emphysema type: unspecified (3) COPD exacerbation Code(s): J44.1 - CHRONIC OBSTRUCTIVE PULMONARY DISEASE W (ACUTE) EXACERBATION (4) Mass of left lung Code(s): R91.8 - OTHER NONSPECIFIC ABNORMAL FINDING OF LUNG FIELD (5) Abdominal distension Code(s): R14.0 - ABDOMINAL DISTENSION (GASEOUS) (6) GERD (gastroesophageal reflux disease) Code(s): K21.9 - GASTRO-ESOPHAGEAL REFLUX DISEASE WITHOUT ESOPHAGITIS Qualifiers: Esophagitis presence: without esophagitis Qualified Code(s): K21.9 - Gastro -esophageal reflux disease without esophagitis (7) Hypothyroid Code(s): E03.9 - HYPOTHYROIDISM, UNSPECIFIED (8) ASHD (arteriosclerotic heart disease) Code(s): I25.10 - ATHSCL HEART DISEASE OF [place] CORONARY ARTERY W/O ANG PCTRS Assessment/Plan IMP COPD EXACERBATION IMPROVED LUNG CA 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 S/P BX ASHD OSAS ON CPAP HTN GERD PULMONARY HTN HEMOPTYSIS RESOLVED PLAN PREDNISONE WITH TAPER INHALED BRONCHODILATORS O2 PET SCAN OUT PATIENT METASTATIC W/U OUTPATIENT IN PROGRESS DR DENISE Problem List - Problems (1) Shortness of breath Code(s): R06.02 - SHORTNESS OF BREATH (2) COPD (chronic obstructive pulmonary disease) Code(s): J44.9 - CHRONIC OBSTRUCTIVE PULMONARY DISEASE, UNSPECIFIED Qualifiers: Emphysema type: unspecified (3) COPD exacerbation Code(s): J44.1 - CHRONIC OBSTRUCTIVE PULMONARY DISEASE W (ACUTE) EXACERBATION (4) Mass of left lung Code(s): R91.8 - OTHER NONSPECIFIC ABNORMAL FINDING OF LUNG FIELD (5) Abdominal distension Code(s): R14.0 - ABDOMINAL DISTENSION (GASEOUS) (6) GERD (gastroesophageal reflux disease) Code(s): K21.9 - GASTRO-ESOPHAGEAL REFLUX DISEASE WITHOUT ESOPHAGITIS (7) Hypothyroid Code(s): E03.9 - HYPOTHYROIDISM, UNSPECIFIED (8) ASHD (arteriosclerotic heart disease) Code(s): I25.10 - ATHSCL HEART DISEASE OF [place] CORONARY ARTERY W/O ANG PCTRS
--- NOTE | 2017-02-21 12:11 | PN ---
Progress Note, Physician - Current Medication List Current Medications: Active Medications Acetaminophen (Tylenol -) 650 mg PO Q6H PRN PRN Reason: FEVER OR PAIN Albuterol/Ipratropium (Duoneb -) 1 amp NEB QIDR [facility] Last Admin: 02/21/17 06:05 Dose: 1 amp Amoxicillin/Clavulanate Potassium (Augmentin - 875mg Tablet) 1 tab PO BID [facility] Last Admin: 02/21/17 09:35 Dose: 1 tab Atorvastatin Calcium (Lipitor -) 10 mg PO [facility] Last Admin: 02/20/17 21:29 Dose: 10 mg Bethanechol Chloride (Urecholine -) 25 mg PO TID [facility] Last Admin: 02/21/17 06:15 Dose: 25 mg Budesonide/Formoterol Fumarate (Symbicort 160/4.5mcg -) 2 puff IH BID [facility] Last Admin: 02/21/17 09:46 Dose: 2 puff Diazepam (Valium -) 5 mg PO Q6H PRN PRN Reason: WITHDRAWAL(CONT SUBST) Last Admin: 02/21/17 00:31 Dose: 5 mg Diltiazem HCl (Cardizem Cd -) 120 mg PO DAILY [facility] Last Admin: 02/21/17 09:37 Dose: 120 mg Folic Acid (Folic Acid -) 1 mg PO DAILY [facility] Last Admin: 02/21/17 09:37 Dose: 1 mg Montelukast Sodium (Singulair -) 10 mg PO [facility] Last Admin: 02/20/17 21:29 Dose: 10 mg Paroxetine HCl (Paxil -) 10 mg PO DAILY [facility] Last Admin: 02/21/17 09:35 Dose: 10 mg Polyethylene Glycol (Miralax (For Daily Use) -) 17 gm PO DAILY [facility] Last Admin: 02/21/17 09:38 Dose: Not Given Prednisone (Deltasone -) 60 mg PO DAILY [facility] Last Admin: 02/21/17 09:37 Dose: Not Given Sodium Chloride ([place] Nasal [place] -) 1 spray NS Q2H PRN PRN Reason: DRY NOSE Last Admin: 02/21/17 06:15 Dose: 1 spray Spironolactone (Aldactone -) 25 mg PO BID [facility] Last Admin: 02/21/17 09:37 Dose: 25 mg Tamsulosin HCl (Flomax -) 0.4 mg PO DAILY@0830 [facility] Last Admin: 02/21/17 08:25 Dose: 0.4 mg Thyroid ([place] Thyroid -) 60 mg PO DAILY@0700 [facility] Last Admin: 02/21/17 06:15 Dose: 60 mg - Objective Vital Signs: Vital Signs Temperature 98.3 F 02/21/17 07:53 Pulse Rate 91 H 02/21/17 07:53 Respiratory Rate 20 02/21/17 07:55 Blood Pressure 128/74 02/21/17 07:53 O2 Sat by Pulse Oximetry (%) 99 02/20/17 21:00 Labs: CBC, BMP 02/18/17 06:25 02/18/17 06:25 INR, PTT INR 1.04 (0.82-1.09) 02/04/17 09:53 Problem List - Problems (1) HTN (hypertension) Code(s): I10 - ESSENTIAL (PRIMARY) HYPERTENSION Qualifiers: Hypertension type: essential hypertension Qualified Code(s): I10 - Essential (primary) hypertension (2) Hypercholesterolemia Code(s): E78.00 - PURE HYPERCHOLESTEROLEMIA, UNSPECIFIED (3) Diabetes mellitus Code(s): E11.9 - TYPE 2 DIABETES MELLITUS WITHOUT COMPLICATIONS Qualifiers: Diabetes mellitus type: type 2 Diabetes mellitus complication status: without complication Diabetes mellitus circulation crew leader insulin use: without circulation crew leader use Qualified Code(s): E11.9 - Type 2 diabetes mellitus without complications (4) ANA (obstructive sleep apnea) Code(s): G47.33 - OBSTRUCTIVE SLEEP APNEA (ADULT) (PEDIATRIC) (5) ASHD (arteriosclerotic heart disease) Code(s): I25.10 - ATHSCL HEART DISEASE OF [place] CORONARY ARTERY W/O ANG PCTRS (6) COPD (chronic obstructive pulmonary disease) Code(s): J44.9 - CHRONIC OBSTRUCTIVE PULMONARY DISEASE, UNSPECIFIED Qualifiers: Emphysema type: unspecified (7) COPD exacerbation Code(s): J44.1 - CHRONIC OBSTRUCTIVE PULMONARY DISEASE W (ACUTE) EXACERBATION (8) GERD (gastroesophageal reflux disease) Code(s): K21.9 - GASTRO-ESOPHAGEAL REFLUX DISEASE WITHOUT ESOPHAGITIS Qualifiers: Esophagitis presence: without esophagitis Qualified Code(s): K21.9 - Gastro -esophageal reflux disease without esophagitis (9) Hypothyroidism Code(s): E03.9 - HYPOTHYROIDISM, UNSPECIFIED Qualifiers: Hypothyroidism type: unspecified Qualified Code(s): E03.9 - Hypothyroidism , unspecified (10) Mass of left lung Code(s): R91.8 - OTHER NONSPECIFIC ABNORMAL FINDING OF LUNG FIELD (11) Shortness of breath Code(s): R06.02 - SHORTNESS OF BREATH (12) Adenocarcinoma of lung Code(s): C34.90 - MALIGNANT NEOPLASM OF UNSP PART OF UNSP BRONCHUS OR LUNG Qualifiers: Laterality: left Qualified Code(s): C34.92 - Malignant neoplasm of unspecified part of left bronchus or lung
[2017-02-21 18:16] VITALS: BP 132/75; PULSE 81; TEMP 98.8
== END 2017-02-21 18:14 | disposition home or self-care (01) | DRG 181 ==
LOC: JER 09:07 → JERBED 14:18 → J7W 16:50 → J4W 20:36
PROVIDERS: ADMIT Family Medicine; ATTEND Family Medicine
PROC: 09JK8ZZ Inspection of Nasal Mucosa and Soft Tissue, Via Natural or Artificial Opening Endoscopic (ICD-10-PCS; 2017-02-11)
PROC: 0CJS8ZZ Inspection of Larynx, Via Natural or Artificial Opening Endoscopic (ICD-10-PCS; 2017-02-11)
PROC: 0BBG3ZX Excision of Left Upper Lung Lobe, Percutaneous Approach, Diagnostic (ICD-10-PCS; principal; 2017-02-14 12:00)
PROC: 0W9B30Z Drainage of Left Pleural Cavity with Drainage Device, Percutaneous Approach (ICD-10-PCS; 2017-02-15)
DX: C34.12 Malignant neoplasm of upper lobe, left bronchus or lung (principal); J44.1 Chronic obstructive pulmonary disease with (acute) exacerbation; J95.811 Postprocedural pneumothorax; C79.31 Secondary malignant neoplasm of brain; R04.2 Hemoptysis; K21.9 Gastro-esophageal reflux disease without esophagitis; I25.10 Atherosclerotic heart disease of native coronary artery without angina pectoris; K44.9 Diaphragmatic hernia without obstruction or gangrene; I34.1 Nonrheumatic mitral (valve) prolapse; F17.210 Nicotine dependence, cigarettes, uncomplicated; G47.33 Obstructive sleep apnea (adult) (pediatric); K27.9 Peptic ulcer, site unspecified, unspecified as acute or chronic, without hemorrhage or perforation; R59.0 Localized enlarged lymph nodes; E03.9 Hypothyroidism, unspecified; R91.1 Solitary pulmonary nodule; E78.5 Hyperlipidemia, unspecified; R33.9 Retention of urine, unspecified; K59.00 Constipation, unspecified; I27.20 Pulmonary hypertension, unspecified; I73.9 Peripheral vascular disease, unspecified; I11.9 Hypertensive heart disease without heart failure; R04.0 Epistaxis; R49.0 Dysphonia; J38.01 Paralysis of vocal cords and larynx, unilateral; Y84.8 Other medical procedures as the cause of abnormal reaction of the patient, or of later complication, without mention of misadventure at the time of the procedure; F41.9 Anxiety disorder, unspecified
CPT/HCPCS: 32405; 32557; 36415; 70552-TC; 71010-TC; 71020-TC; 71275-TC; 74177-TC; 76380-TC; 78306-TC; 80053; 80061; 80074; 81003; 82085; 82550; 82553; 82803; 83036; 83615; 83625; 83690; 83721; 83874; 83880; 84439; 84443; 84484; 85025; 85027; 85610; 85730; 87086; 88305-TC; 90732; 93005; 93010; 93306-TC; 94640; 94660; 94761; 97116-GP; 97161-GP; 99285-25; A9503; C1729; C1769; G0009

== ENCOUNTER 2022-06-09 16:30 | Inpatient (IN) | payer OTHER, BC ==
[2022-06-09] MEDS ORDERED: ONDANSETRON 4 MG/2 ML VIAL IVPUSH ONE (17:57)
[2022-06-09] MEDS ORDERED: SODIUM CHLORIDE 0.9% 500 ML INFUS.BAG IV ONE (17:57)
[2022-06-09] MEDS ORDERED: FAMOTIDINE 20 MG/50 ML IVPB 20 MG/50 ML MG IVPB ONE ×2 (17:57→18:45)
[2022-06-09] MEDS ORDERED: ONDANSETRON 4 MG/2 ML VIAL ONE (18:45)
[2022-06-09 18:58] LABS: VENOUS O2 SATURATION 69.6 % (70-80); VENOUS PCO2 41.4 mmHg (38-52); VENOUS PH 7.397 (7.310-7.410)
[2022-06-09 19:08] LABS: BASO % 0.7 % (0-2.0); EOS % 0.1 % (0-4.5); HEMATOCRIT 45.8 % (32.4-45.2); LYMPH % 13.3 % (8-40); MCH 28.5 pg (25.7-33.7); MCHC 32.7 g/dl (32.0-36.0); MEAN CELL VOLUME 87.1 fl (80-96); MEAN PLT VOLUME 7.8 fl (7.5-11.1); NEUT % 80.9 % (42.8-82.8); PLATELET COUNT 309 10^3/uL (134-434); RBC 5.26 M/mm3 (3.60-5.2); RDW 14.6 % (11.6-15.6); WHITE BLOOD COUNT 13.4 K/mm3 (4.0-10.0)
[2022-06-09 19:21] LABS: ALBUMIN 3.7 g/dl (3.4-5.0); BLOOD UREA NITROGEN 12.3 mg/dL (7-18)
[2022-06-09 19:24] LABS: CREATININE 0.8 mg/dL (0.55-1.3)
[2022-06-09 19:25] LABS: BILIRUBIN,TOTAL 0.7 mg/dL (0.2-1)
[2022-06-09 19:26] LABS: TOT PROT 7.6 g/dl (6.4-8.2)
[2022-06-09 19:27] LABS: INR 1.3 (0.83-1.09)
[2022-06-09 19:30] LABS: ACTIVATED PTT 35.4 SECONDS (25.2-36.5)
[2022-06-09 22:02] LABS: EPI CELLS 5 /uL (0-25.1); HYALINE CASTS 2 /uL (0-3.1); PH,URINE 6.5 (5.0-8.0); URINE APPEARANCE TURBID; URINE BACTERIA 7803 /uL (0-1359); URINE BILIRUBIN NEGATIVE (NEGATIVE); URINE COLOR YELLOW; URINE GLUCOSE (UA) NEGATIVE (NEGATIVE); URINE KETONE NEGATIVE (NEGATIVE); URINE LEUK ESTERASE 3+ (NEGATIVE); URINE NITRITE POSITIVE (NEGATIVE); URINE PROTEIN 1+ (NEGATIVE); URINE RBC 40 /uL (0-23.9); URINE WBC 4660 /uL (0-25.8)
[2022-06-09] MEDS ORDERED: DOCUSATE SODIUM 100 MG CAPSULE (FP) PO PRN (22:49)
[2022-06-10] MEDS: CEFTRIAXONE 1 GM in DEXTROSE 5%-WATER - 50 ML IVPB SCH ×2 (01:33→10:00)
[2022-06-10] MEDS ORDERED: ALBUTEROL SO4 HFA INHALER IH PRN (04:21)
[2022-06-10] MEDS: ACETAMINOPHEN 325 MG TABLET (FP) PO PRN (07:36)
[2022-06-10 08:10] LABS: BASO % 0.8 % (0-2.0); EOS % 0.8 % (0-4.5); HEMATOCRIT 40.9 % (32.4-45.2); HEMOGLOBIN 14.3 GM/dL (10.7-15.3); LYMPH % 19.8 % (8-40); MCH 30.3 pg (25.7-33.7); MCHC 34.8 g/dl (32.0-36.0); MEAN PLT VOLUME 8.2 fl (7.5-11.1); MONO % 7.5 % (3.8-10.2); NEUT % 71.1 % (42.8-82.8); PLATELET COUNT 257 10^3/uL (134-434); RDW 14.5 % (11.6-15.6); WHITE BLOOD COUNT 9.6 K/mm3 (4.0-10.0)
[2022-06-10 08:29] LABS: BLOOD UREA NITROGEN 11.8 mg/dL (7-18); CALCIUM 8.4 mg/dL (8.5-10.1); MAGNESIUM 2.2 mg/dL (1.8-2.4)
[2022-06-10 08:32] LABS: CREATININE 0.7 mg/dL (0.55-1.3)
[2022-06-10] MEDS: LORATADINE 10 MG TABLET PO SCH (10:00)
[2022-06-10] MEDS ORDERED: ENOXAPARIN NA (PORCINE) 40 MG/0.4 ML DISP.SYRIN SQ SCH (10:00)
[2022-06-10] MEDS ORDERED: PNEUMOC 20-VAL CONJ-DIP CRM/PF 0.5 ML SYRINGE IM ONE (10:00)
[2022-06-10] MEDS: FLUTICASONE/UMECLIDIN/VILANTER(200-62.5-25 TRELEGY ELLIPTA) INAHLER IH SCH (10:12)
[2022-06-10] MEDS: RIVAROXABAN 20 MG TABLET PO SCH (17:31)
[2022-06-10] MEDS: POLYETHYLENE GLYCOL (HEALTHYLAX) 3350 17 GM PACKET PO SCH (21:18)
[2022-06-10] MEDS: MONTELUKAST NA 10 MG TABLET PO SCH (21:18)
[2022-06-10] MEDS: ATORVASTATIN CA 20 MG TABLET (FP) PO SCH (21:18)
[2022-06-11] MEDS: INSULIN SLIDING SCALE (NOVOLOG) 1 VIAL SQ SCH ×3 (07:30→17:36)
[2022-06-11 07:57] LABS: BASO % 0.6 % (0-2.0); EOS % 1.4 % (0-4.5); HEMATOCRIT 41.5 % (32.4-45.2); HEMOGLOBIN 14.1 GM/dL (10.7-15.3); LYMPH % 15.6 % (8-40); MCH 29.6 pg (25.7-33.7); MCHC 34.1 g/dl (32.0-36.0); MEAN CELL VOLUME 86.9 fl (80-96); MEAN PLT VOLUME 7.8 fl (7.5-11.1); MONO % 7.6 % (3.8-10.2); NEUT % 74.8 % (42.8-82.8); PLATELET COUNT 279 10^3/uL (134-434); RBC 4.77 M/mm3 (3.60-5.2); RDW 14.8 % (11.6-15.6); WHITE BLOOD COUNT 8.5 K/mm3 (4.0-10.0)
[2022-06-11 08:19] LABS: ALBUMIN 3.3 g/dl (3.4-5.0); BLOOD UREA NITROGEN 10.9 mg/dL (7-18); CALCIUM 8.7 mg/dL (8.5-10.1)
[2022-06-11 08:23] LABS: CREATININE 0.6 mg/dL (0.55-1.3)
[2022-06-11 08:25] LABS: TOT PROT 6.9 g/dl (6.4-8.2)
[2022-06-11 08:27] LABS: BILIRUBIN,TOTAL 0.7 mg/dL (0.2-1)
[2022-06-11] MEDS: CEFTRIAXONE 1 GM in DEXTROSE 5%-WATER - 50 ML IVPB SCH (09:49)
[2022-06-11] MEDS: POLYETHYLENE GLYCOL (HEALTHYLAX) 3350 17 GM PACKET PO SCH ×2 (09:50→21:16)
[2022-06-11] MEDS: LORATADINE 10 MG TABLET PO SCH (09:50)
[2022-06-11] MEDS ORDERED: dilTIAZem HCL 30 MG TABLET PO ONE (11:45)
[2022-06-11] MEDS: AMMONIUM LACTATE 12% LOTION 225 GM BOTTLE TP SCH ×3 (12:43→21:16)
[2022-06-11] MEDS: FLUTICASONE/UMECLIDIN/VILANTER(200-62.5-25 TRELEGY ELLIPTA) INAHLER IH SCH (14:30)
[2022-06-11 15:29] VITALS: BMI 35.6
[2022-06-11] MEDS: RIVAROXABAN 20 MG TABLET PO SCH (17:38)
[2022-06-11] MEDS: MONTELUKAST NA 10 MG TABLET PO SCH (21:16)
[2022-06-11] MEDS: ATORVASTATIN CA 20 MG TABLET (FP) PO SCH (21:16)
[2022-06-11] MEDS: MELATONIN 5 MG TABLETS PO PRN (23:30)
[2022-06-12] MEDS: INSULIN SLIDING SCALE (NOVOLOG) 1 VIAL SQ SCH ×3 (06:50→17:29)
[2022-06-12] MEDS: CEFTRIAXONE 1 GM in DEXTROSE 5%-WATER - 50 ML IVPB SCH (09:17)
[2022-06-12] MEDS: POLYETHYLENE GLYCOL (HEALTHYLAX) 3350 17 GM PACKET PO SCH ×2 (09:17→21:32)
[2022-06-12] MEDS: LORATADINE 10 MG TABLET PO SCH (09:17)
[2022-06-12] MEDS: FLUTICASONE/UMECLIDIN/VILANTER(200-62.5-25 TRELEGY ELLIPTA) INAHLER IH SCH (09:18)
[2022-06-12] MEDS: AMMONIUM LACTATE 12% LOTION 225 GM BOTTLE TP SCH ×2 (09:18→21:32)
[2022-06-12] MEDS: ACETAMINOPHEN 325 MG TABLET (FP) PO PRN (09:23)
[2022-06-12] MEDS: LACTOBACILLUS ACIDOPHILUS 1 TABLET PO SCH (13:22)
[2022-06-12] MEDS: DOCUSATE SODIUM 100 MG CAPSULE (FP) PO SCH ×2 (13:22→21:32)
[2022-06-12] MEDS ORDERED: ONDANSETRON 4 MG/2 ML VIAL IVPUSH ONE (14:30)
[2022-06-12] MEDS: RIVAROXABAN 20 MG TABLET PO SCH (17:34)
[2022-06-12] MEDS: MONTELUKAST NA 10 MG TABLET PO SCH (21:32)
[2022-06-12] MEDS: ATORVASTATIN CA 20 MG TABLET (FP) PO SCH (21:32)
[2022-06-12] MEDS: MELATONIN 5 MG TABLETS PO PRN (21:35)
[2022-06-13] MEDS ORDERED: MAGNESIUM HYDROX 2400MG/30ML ORAL SUSPENSION 30 ML CUP PO PRN (01:16)
[2022-06-13] MEDS ORDERED: FAMOTIDINE 20 MG/50 ML IVPB 20 MG/50 ML MG IVPB ONE (01:48)
[2022-06-13] MEDS: INSULIN SLIDING SCALE (NOVOLOG) 1 VIAL SQ SCH ×3 (06:17→16:55)
[2022-06-13] MEDS: DOCUSATE SODIUM 100 MG CAPSULE (FP) PO SCH ×3 (06:17→22:14)
[2022-06-13] MEDS: CEFTRIAXONE 1 GM in DEXTROSE 5%-WATER - 50 ML IVPB SCH (09:21)
[2022-06-13] MEDS: LORATADINE 10 MG TABLET PO SCH (09:21)
[2022-06-13] MEDS: LACTOBACILLUS ACIDOPHILUS 1 TABLET PO SCH (09:21)
[2022-06-13] MEDS: POLYETHYLENE GLYCOL (HEALTHYLAX) 3350 17 GM PACKET PO SCH ×3 (09:22→22:16)
[2022-06-13] MEDS: AMMONIUM LACTATE 12% LOTION 225 GM BOTTLE TP SCH ×2 (09:23→22:15)
[2022-06-13] MEDS: FLUTICASONE/UMECLIDIN/VILANTER(200-62.5-25 TRELEGY ELLIPTA) INAHLER IH SCH (09:23)
[2022-06-13] MEDS ORDERED: ERGOCALCIFEROL (VIT D2) 50,000 UNIT (1.25 MG) CAPSULE PO SCH (10:00)
[2022-06-13] MEDS: RIVAROXABAN 20 MG TABLET PO SCH (18:36)
[2022-06-13] MEDS ORDERED: ALBUTEROL SO4 0.083% IH SOL 2.5 MG/3 ML VIAL.NEB. NEB ONE (21:25)
[2022-06-13] MEDS ORDERED: ALBUTEROL SO4 0.042% IH SOL 1.25 MG/3 ML VIAL.NEB NEB ONE (21:25)
[2022-06-13] MEDS: MELATONIN 5 MG TABLETS PO PRN (22:14)
[2022-06-13] MEDS: ATORVASTATIN CA 20 MG TABLET (FP) PO SCH (22:14)
[2022-06-13] MEDS: MONTELUKAST NA 10 MG TABLET PO SCH (22:15)
[2022-06-14] MEDS: INSULIN SLIDING SCALE (NOVOLOG) 1 VIAL SQ SCH ×2 (06:53→12:55)
[2022-06-14] MEDS: DOCUSATE SODIUM 100 MG CAPSULE (FP) PO SCH ×2 (07:00→14:59)
[2022-06-14 08:45] LABS: BASO % 0.5 % (0-2.0); EOS % 1.6 % (0-4.5); HEMATOCRIT 40.8 % (32.4-45.2); HEMOGLOBIN 14.1 GM/dL (10.7-15.3); LYMPH % 14.4 % (8-40); MCH 29.9 pg (25.7-33.7); MCHC 34.5 g/dl (32.0-36.0); MEAN CELL VOLUME 86.6 fl (80-96); MEAN PLT VOLUME 7.6 fl (7.5-11.1); NEUT % 78.5 % (42.8-82.8); PLATELET COUNT 298 10^3/uL (134-434); RBC 4.71 M/mm3 (3.60-5.2); RDW 14.6 % (11.6-15.6); WHITE BLOOD COUNT 10.3 K/mm3 (4.0-10.0)
[2022-06-14 09:08] LABS: ALBUMIN 3.3 g/dl (3.4-5.0); BLOOD UREA NITROGEN 12.4 mg/dL (7-18); CALCIUM 8.8 mg/dL (8.5-10.1)
[2022-06-14 09:12] LABS: CREATININE 0.6 mg/dL (0.55-1.3)
[2022-06-14 09:14] LABS: BILIRUBIN,TOTAL 0.9 mg/dL (0.2-1)
[2022-06-14] MEDS ORDERED: CEPHALEXIN MONOHYDRATE 500 MG CAPSULE (UD) PO SCH (10:00)
[2022-06-14] MEDS: LORATADINE 10 MG TABLET PO SCH (10:33)
[2022-06-14] MEDS: AMMONIUM LACTATE 12% LOTION 225 GM BOTTLE TP SCH (10:34)
[2022-06-14] MEDS: LACTOBACILLUS ACIDOPHILUS 1 TABLET PO SCH (10:37)
[2022-06-14] MEDS: FLUTICASONE/UMECLIDIN/VILANTER(200-62.5-25 TRELEGY ELLIPTA) INAHLER IH SCH (10:37)
[2022-06-14] MEDS: POLYETHYLENE GLYCOL (HEALTHYLAX) 3350 17 GM PACKET PO SCH (10:45)
[2022-06-14 16:53] VITALS: BP 148/74; PULSE 80; RESP 20; TEMP 98.2
== END 2022-06-14 16:52 | disposition home or self-care (01) | DRG 690 ==
LOC: JER 16:30 → JERBED 22:03 → J4W 06-10 01:11
PROVIDERS: ADMIT Internal Medicine; ATTEND Family Medicine
DX: N39.0 Urinary tract infection, site not specified (principal); C34.90 Malignant neoplasm of unspecified part of unspecified bronchus or lung; C79.31 Secondary malignant neoplasm of brain; I24.8 Other forms of acute ischemic heart disease; I25.10 Atherosclerotic heart disease of native coronary artery without angina pectoris; K21.9 Gastro-esophageal reflux disease without esophagitis; K44.9 Diaphragmatic hernia without obstruction or gangrene; J44.9 Chronic obstructive pulmonary disease, unspecified; E78.5 Hyperlipidemia, unspecified; R11.2 Nausea with vomiting, unspecified; E11.40 Type 2 diabetes mellitus with diabetic neuropathy, unspecified; L89.626 Pressure-induced deep tissue damage of left heel; E03.9 Hypothyroidism, unspecified; D70.9 Neutropenia, unspecified; R50.81 Fever presenting with conditions classified elsewhere; K57.90 Diverticulosis of intestine, part unspecified, without perforation or abscess without bleeding; K59.00 Constipation, unspecified; R77.8 Other specified abnormalities of plasma proteins; G47.33 Obstructive sleep apnea (adult) (pediatric); E86.0 Dehydration; I11.0 Hypertensive heart disease with heart failure; I50.9 Heart failure, unspecified; M51.35 Other intervertebral disc degeneration, thoracolumbar region; R00.0 Tachycardia, unspecified; B96.20 Unspecified Escherichia coli [E. coli] as the cause of diseases classified elsewhere; E11.51 Type 2 diabetes mellitus with diabetic peripheral angiopathy without gangrene
CPT/HCPCS: 0241U-QW; 36415; 71045-TC-FY; 73630-TC-LT; 80048; 80053; 81003; 82272; 82803; 82962; 83605; 83735; 84100; 84484; 85025; 85610; 85651; 85730; 86140; 86850; 86900; 86901; 87040; 87086; 87186; 90677; 93005; 93010; 93306-TC; 94761; 99285-25